=== PATIENT | female | born 1990 | race African-American/Black ===

== ENCOUNTER → 2019-07-17 11:46 | Outpatient (CLI) | payer BC, SELFPAY | PROVIDERS: Visit Provider Obstetrics & Gynecology | DX: N76.0 Acute vaginitis (principal) | CPT/HCPCS: 87070; 87077; 87186; 87205 ==

== ENCOUNTER → 2020-08-02 14:14 | Outpatient (CLI) | payer BC, SELFPAY ==
[2020-08-02 16:14] LABS: Thyroid Stimulating Hormone 2.26 uIU/mL (0.465-4.68)
== END ==
PROVIDERS: Visit Provider Obstetrics & Gynecology
DX: N97.0 Female infertility associated with anovulation (principal)
CPT/HCPCS: 36415; 84144; 84443

== ENCOUNTER → 2020-08-31 14:59 | Outpatient (POV) | payer BC, SELFPAY | PROVIDERS: Visit Provider Family Medicine | DX: Z00.00 Encounter for general adult medical examination without abnormal findings (principal) ==

== ENCOUNTER → 2020-09-02 15:34 | Outpatient (CLI) | payer BC, SELFPAY ==
[2020-09-02 17:57] LABS: Microscopic, Urine URINE MICROSCOPIC (MICROSCOPIC)
[2020-09-02 18:04] LABS: Basophils # 0.1 K/mm3 (0-0.2); Basophils % 0.4 % (0.1-2.0); Eosinophils # 0.1 K/mm3 (0.0-0.4); Hematocrit 43.9 % (37.0-47.0); Hemoglobin 14.8 g/dL (12.2-16.2); Mean Corpuscular HGB Conc 33.7 g/dL (31.8-35.4); Mean Corpuscular Hemoglobin 28.6 pg (27.0-31.2); Mean Corpuscular Volume 84.9 fl (81-99); Mean Platelet Volume 9.1 fl (7.4-10.4); Monocytes # 0.3 K/mm3 (0.1-1.0); Monocytes % 2.8 % (1.7-9.3); Neutrophils # 7.4 K/mm3 (1.8-7.8); Neutrophils % 67.7 % (37.0-80.0); Platelet Count 303 K/mm3 (142-424); Red Blood Count 5.18 M/mm3 (4.20-5.40); Red Cell Distribution Width 13.8 % (11.5-17.5); White Blood Count 10.9 K/mm3 (4.8-10.8)
[2020-09-02 18:45] LABS: Appearance,Urine CLEAR (Clear); Bilirubin,Urine Negative (Negative); Blood, Urine Negative (Negative); Color,Urine YELLOW (Yellow); Glucose,Urine (UA) 2+ (Negative); Ketones,Urine Negative (Negative); Leukocyte Esterase,Urine Negative (Negative); Nitrate,Urine Negative (Negative); PH,Urine 6.5 (5.0-8.5); Protein,Urine Negative (Negative); Urobilinogen,Urine 0.2 EU/dl (0.2)
--- NOTE | 2020-09-02 20:37 | ECG_ITS ---
APPROVED REPORT Exam: Resting ECG HR:116 bpm ECG Measurements Heart Rate 116 AXES AR 142 P 43 QRSd 66 QRS 1 QT 280 T 49 QTc 389 Conclusion Sinus tachycardia Possible Left atrial enlargement Left ventricular hypertrophy Nonspecific T wave abnormality Abnormal ECG Electronically signed by : Ephrami Kelly, 09/03/2020 10:32:19
[2020-09-04 08:57] LABS: Covid-19 Nasal PCR Sendout UK Not Detected
== END ==
PROVIDERS: PCP Nurse Practitioner; Visit Provider Nurse Practitioner
DX: Z03.818 Encounter for observation for suspected exposure to other biological agents ruled out (principal)
CPT/HCPCS: 36415; 81001; 85025; 93005; U0003

== ENCOUNTER 2020-09-02 20:11 | Emergency (ER) | payer BC, SELFPAY ==
[2020-09-02 20:14] VITALS: BP 131/94; PULSE 107; RESP 18; TEMP 36.8; O2SAT 98; BMI 42.2
--- NOTE | 2020-09-02 20:36 | XR_ITS ---
PROCEDURE: XR CHEST PORTABLE CLINICAL HISTORY: shortgness of breath COMPARISON: CR CXR CHEST(2 VIEWS-NOT PORTABLE) from 09/28/2015 FINDINGS: The cardiomediastinal silhouette and pulmonary vascularity are within normal limits. The lungs are clear without infiltrates, suspicious nodules, or pleural effusions. No acute bony abnormalities. IMPRESSION: No acute findings. Dictated by: Dr. Bernardo Serna MD 09/03/2020 08:12 Dr. Bernardo Serna MD in [place] 09/03/2020 08:12
--- NOTE | 2020-09-02 20:37 | HMH.EDGENADL ---
ED Disposition Clinical Impression: Shortness of breath Disposition: Home, Self-Care Condition on Discharge: Good Additional Instructions: Follow up with your therapist. Take the vistaril as needed for anxiety. Return with worsening shortness of breath Prescriptions: hydrOXYzine pamoate [Vistaril 25mg capsule] 25 mg PO Q6H PRN 3 Days #10 cap PRN Reason: Anxiety Prescription Printed Referrals: Arsalan Powers MD [Primary Care Provider] - - Critical Care Critical Care Time: No Attestation: On 09/02/20, the high probability of a clinically significant, sudden or life threatening deterioration of the following system(s) required my full and direct attention, intervention and personal management. The time I documented below is in addition to time spent performing reported procedures but includes the following listed in this critical care notation. Medical Decision Making - Medical Records Medical records reviewed: Yes: I reviewed the patient's medical records. - Edwin Inquiry Pt receiving controlled substance: No Vital Signs: 09/02/20 20:14 09/02/20 21:44 09/02/20 22:00 Temperature 98.3 F 98.3 F Temperature Source Oral Oral Pulse Rate 101 H Pulse Rate [Left Radial] 107 H 106 H Respiratory Rate 18 14 20 Blood Pressure 137/91 H Blood Pressure [Right Arm] 131/94 H 137/91 H Blood Pressure Mean [Right Arm] 106 106 Blood Pressure Source Automatic Cuff Blood Pressure Source [Right Arm] Automatic Cuff Blood Pressure Position Sitting Blood Pressure Position [Right Arm] Supine Supine 02 Sat by Pulse Oximetry 98 96 Oxygen Delivery Method Room Air Room Air Room Air - Lab Data Lab Results 09/02/20 20:50: Urine HCG, Qual Negative Orders (Tests/Meds): ORDERS Category Date Time Status CXR --portable [XR chest portable] Stat Exams 09/02/20 20:36 Taken Medical Decision Narrative: The patient is a 30 year old female who presents to the ED with shortness of breath. She is awake, alert, stable. She has no chest pain, no pleuritic pain. EKG is nonischemic. No signs of heart failure or fluid overload. Lungs are clear. CXR obtained and unremarkable per my read however limited by body habitus. She is tearful on exam about her recent diagnosis of possible infertility. Discussed the possibility of diagnosis of COVID-19 with patient and strict return precautions. She conveys understanding and feels comfortable going home. Given PRN vistaril for anxiety. General Adult HPI - General Chief complaint: Shortness of Breath/Dyspnea Stated complaint: sob,NAUSA,HEAD CONGESTION Time Seen by Provider: 09/02/20 20:35 Mode of Arrival: Ambulatory Limitations: No Limitations Description of Symptoms (Recalled from ER Triage Doc. by RN): Pt reports intermittent SOA since yesterday as well as nause. Pt was COVID tested today and she thinks she may just be having a panic attack . Pt denies CP, vomiting, diarrhea, abd pain, sore throat, cough, diaphoresis, weakness or dizziness. - History of Present Illness HPI narrative: The patient is a 30 year old female who presents with shortness of breath. Patient states that she had been feeling short of breath for a few days and told her PCP who saw her in clinic this morning and ordered a COVID test. She has not gotten the results. She was told to come in if she had continued shortness of breath and she felt short of breath which prompted her coming. She is able to ambulate without issue. No chest pain. No fevers, nausea, vomiting, diarrhea, abdominal pain. No known contact with anyone with COVID19. She has a history of anxiety and states this may be contributing - of note she just received the news she may not be able to have children. - Related Data Home Medications Medication Instructions Recorded Confirmed cholecalciferol (vitamin D3) 50 2,000 unit PO DAILY 07/17/19 09/02/20 mcg (2,000 unit) capsule metformin 500 mg tablet 500 mg PO DAILY tab 06/24
--- NOTE | 2020-09-02 20:41 | PC.NURSE ---
Pt in COVID isolation d/t pending COVID test
[2020-09-02 21:11] LABS: Urine Pregnancy, HCG Qual. Negative (Negative)
[2020-09-02 21:44] VITALS: BP 137/91; PULSE 106; RESP 14; O2SAT 96
[2020-09-02 22:00] VITALS: BP 137/91; PULSE 101; RESP 20; TEMP 36.8; O2SAT 94
== END 2020-09-02 22:06 | disposition home or self-care (01) ==
PROVIDERS: Emergency Provider Emergency Medicine; PCP Family Medicine
DX: Z20.828 Contact with and (suspected) exposure to other viral communicable diseases (principal); E11.9 Type 2 diabetes mellitus without complications; F41.9 Anxiety disorder, unspecified; Z79.899 Other long term (current) drug therapy
CPT/HCPCS: 71045; 81025; 99283

== ENCOUNTER → 2020-09-14 14:25 | Outpatient (POV) | payer BC, SELFPAY | DX: Z00.00 Encounter for general adult medical examination without abnormal findings (principal) ==

== ENCOUNTER → 2021-05-12 18:32 | Outpatient (CLI) | payer BC, SELFPAY ==
[2021-05-12 19:47] LABS: Basophils # 0.1 K/mm3 (0-0.2); Basophils % 0.8 % (0.1-2.0); Eosinophils # 0.2 K/mm3 (0.0-0.4); Eosinophils % 1.6 % (0.1-12.0); Hematocrit 42.9 % (37.0-47.0); Hemoglobin 14.2 g/dL (12.2-16.2); Lymphocytes # 2.7 K/mm3 (0.7-4.5); Lymphocytes % 26.8 % (10-50); Mean Corpuscular HGB Conc 33.2 g/dL (31.8-35.4); Mean Corpuscular Hemoglobin 27.6 pg (27.0-31.2); Mean Platelet Volume 8.4 fl (7.4-10.4); Monocytes # 0.4 K/mm3 (0.1-1.0); Monocytes % 3.5 % (1.7-9.3); Neutrophils # 6.8 K/mm3 (1.8-7.8); Neutrophils % 67.2 % (37.0-80.0); Platelet Count 283 K/mm3 (142-424); Red Blood Count 5.16 M/mm3 (4.20-5.40); Red Cell Distribution Width 13.6 % (11.5-17.5); White Blood Count 10.1 K/mm3 (4.8-10.8)
[2021-05-12 20:14] LABS: Strep Scrn Group A (Rapid) Negative (Negative)
== END ==
PROVIDERS: PCP Physician Assistant; Visit Provider Physician Assistant
DX: Z20.822 Contact with and (suspected) exposure to COVID-19 (principal)
CPT/HCPCS: 36415; 85025; 87430; U0003

== ENCOUNTER → 2021-08-28 14:32 | Outpatient (CLI) | payer BC, SELFPAY | PROVIDERS: PCP Family Medicine; Visit Provider Nurse Practitioner | DX: G47.33 Obstructive sleep apnea (adult) (pediatric) (principal); R40.0 Somnolence; R06.83 Snoring | CPT/HCPCS: G0399 ==

== ENCOUNTER → 2021-09-01 10:58 | Outpatient (CLI) | payer BC, SELFPAY ==
--- NOTE | 2021-09-01 10:58 | US_ITS ---
PROCEDURE: US TRANSVAGINAL CLINICAL INDICATION: heavy menstrual bleeding COMPARISON: No exams were available for comparison FINDINGS: UTERUS: 8cm x 5cmx 4cm with a combined endometrial thickness of 5.6mm. There are multiple fibroids present. 1.8 x 1.6 cm fibroid in the anterior aspect of the body of the uterus. 1.5 cm fibroid along the fundus of the uterus. 3.5 cm area of heterogeneous echogenicity in the left aspect of the body of the uterus suggesting a fibroid possibly pedunculated. MRI may confirm.. LEFT OVARY: [id number] with a volume of 10.2ml. RIGHT OVARY: [id number] with a volume of 12ml. 1.4 cm left ovarian cyst with other small follicles noted. No cul-de-sac fluid. IMPRESSION: At least 3 uterine fibroids possibly pedunculated on the left. MRI may confirm. Dictated by: Caleb Powers MD 09/01/2021 16:45 Caleb Powers MD in [place] 09/01/2021 16:45
== END ==
PROVIDERS: PCP Family Medicine; Visit Provider Obstetrics & Gynecology
DX: N92.0 Excessive and frequent menstruation with regular cycle (principal)
CPT/HCPCS: 76830

== ENCOUNTER → 2021-10-02 12:03 | Outpatient (CLI) | payer BC, SELFPAY | PROVIDERS: PCP Family Medicine; Visit Provider Nurse Practitioner | DX: Z20.822 Contact with and (suspected) exposure to COVID-19 (principal) | CPT/HCPCS: C9803; U0003; U0005 ==

== ENCOUNTER → 2022-02-28 10:55 | Outpatient (CLI) | payer BC, SELFPAY ==
--- NOTE | 2022-02-28 11:15 | US_ITS ---
FINAL REPORT CLINICAL HISTORY: NEOPLASM OF UNCERTAIN BEHAVIOR OF ORBIT; palpable area rt of midline: upper nose/medial to rt orbit FINDINGS: SOFT TISSUE HEAD ULTRASOUND Sonographic images of the soft tissues of the head were obtained. There is a 6 x 6 x 3 mm hypoechoic nodule in the area of interest medial to the right orbit. This may represent complex cyst versus neoplasm. IMPRESSION: Hypoechoic nodule medial to the right orbit, complex cyst versus neoplasm. Reviewed, Interpreted and Dictated by Jesse Paulson III, MD Transcribed by Yesica Parks Authenticated and [facility]
== END ==
PROVIDERS: PCP Family Medicine; Visit Provider Nurse Practitioner
DX: D48.7 Neoplasm of uncertain behavior of other specified sites (principal)
CPT/HCPCS: 76536

== ENCOUNTER → 2022-03-14 12:40 | Outpatient (CLI) | payer BC, SELFPAY ==
--- NOTE | 2022-03-14 12:47 | CT_ITS ---
FINAL REPORT TECHNIQUE: Multiple axial CT sections were performed from the foramen magnum to the vertex. Coronal reformatted images were also obtained. Precontrast and postcontrast injection images were obtained. This study was performed with technique to keep radiation doses as low as reasonably achievable, (ALARA). Individualized dose reduction techniques using automated exposure control or adjustment of mA and/or kV according to the patient size were employed. CLINICAL HISTORY: NEOPLASM OF UNCERTAIN BEHAVIOR OF RIGHT ORBIT FINDINGS: The ventricles are normal in size. There is no evidence of hemorrhage. No masses are identified. No extra-axial fluid collection is seen. The sinuses are normal. No osseous abnormality is seen on the bone window images. Postcontrast images demonstrate no abnormal enhancement. IMPRESSION: Unremarkable CT of the head with and without contrast. Reviewed, Interpreted and Dictated by Jesse Paulson III, MD Transcribed by Sachi Anand Authenticated and [facility]
== END ==
PROVIDERS: PCP Family Medicine; Visit Provider Nurse Practitioner
DX: D48.7 Neoplasm of uncertain behavior of other specified sites (principal)
CPT/HCPCS: 70470; Q9967

== ENCOUNTER → 2022-05-30 06:59 | Outpatient (CLI) | payer BC, SELFPAY ==
[2022-05-30 21:00] LABS: Alanine Aminotransferase 19 U/L (12-78); Albumin Level 3.6 g/dl (3.5-5.0); Albumin/Globulin Ratio 1.5 (1.1-1.8); Alkaline Phosphatase 107 U/L (38-126); Aspartate Amino Transferase 20 U/L (14-36); Blood Urea Nitrogen 10 mg/dl (7-17); Calcium 8.9 mg/dl (8.4-10.2); Carbon Dioxide 25 mmol/L (22.0-30.0); Chloride 106 mmol/L (98-107); Estimated Glomerular Filt Rate 116 ml/min (>60); GFR (African American) 140 ML/MIN (>60); Globulin 2.4 g/dL (1.3-3.2); Glucose 150 mg/dl (74-100); Sodium 137 mmol/L (136-145)
[2022-05-30 21:04] LABS: Bilirubin,Total < 0.1 mg/dl (0.2-1.3)
== END ==
PROVIDERS: PCP Nurse Practitioner; Visit Provider Nurse Practitioner
DX: E11.9 Type 2 diabetes mellitus without complications (principal); Z79.84 Long term (current) use of oral hypoglycemic drugs
CPT/HCPCS: 80053

== ENCOUNTER → 2022-12-05 23:07 | Outpatient (CLI) | payer BC, SELFPAY | PROVIDERS: PCP Nurse Practitioner Family; Visit Provider Nurse Practitioner Family | DX: J02.9 Acute pharyngitis, unspecified (principal) | CPT/HCPCS: 87070 ==

== ENCOUNTER → 2022-12-10 23:36 | Outpatient (CLI) | payer BC, SELFPAY ==
[2022-12-10 18:24] LABS: Basophils % 0.3 % (0.1-2.0); Eosinophils # 0.1 K/mm3 (0.0-0.4); Eosinophils % 0.7 % (0.1-12.0); Hematocrit 42.4 % (37.0-47.0); Hemoglobin 13.6 g/dL (12.2-16.2); Lymphocytes # 2.2 K/mm3 (0.7-4.5); Lymphocytes % 30.1 % (10-50); Mean Corpuscular Hemoglobin 27.1 pg (27.0-31.2); Mean Corpuscular Volume 84.6 fl (81-99); Mean Platelet Volume 9.1 fl (7.4-10.4); Monocytes # 0.2 K/mm3 (0.1-1.0); Neutrophils # 4.8 K/mm3 (1.8-7.8); Neutrophils % 65.9 % (37.0-80.0); Platelet Count 317 K/mm3 (142-424); Red Blood Count 5.01 M/mm3 (4.20-5.40); Red Cell Distribution Width 13.9 % (11.5-17.5); White Blood Count 7.2 K/mm3 (4.8-10.8)
[2022-12-10 18:38] LABS: Alanine Aminotransferase 21 U/L (12-78); Albumin Level 4.2 g/dl (3.5-5.0); Albumin/Globulin Ratio 1.8 (1.1-1.8); Alkaline Phosphatase 94 U/L (38-126); Aspartate Amino Transferase 21 U/L (14-36); Bilirubin,Total 0.3 mg/dl (0.2-1.3); Blood Urea Nitrogen 10 mg/dl (7-17); Calcium 9.2 mg/dl (8.4-10.2); Carbon Dioxide 25 mmol/L (22.0-30.0); Chloride 104 mmol/L (98-107); Chol/HDL Ratio 4.5 (1-3.5); Cholesterol 127 mg/dl (140-200); Estimated Glomerular Filt Rate 142 ml/min (>60); GFR (African American) 172 ML/MIN (>60); Globulin 2.4 g/dL (1.3-3.2); Glucose 126 mg/dl (74-100); HDL Cholesterol 28 mg/dl (40-60); Hemoglobin A1C 6.8 % (4.0-6.0); Sodium 138 mmol/L (136-145); Total Protein,Serum 6.6 g/dl (6.3-8.2); Triglycerides 211 mg/dl (30-150); VLDL Cholesterol 42 mg/dL (0-40)
[2022-12-10 18:42] LABS: Creatinine,Urine Random 37 mg/dL (Not Estab.)
[2022-12-10 18:46] LABS: Microalbumin/Creatinine Ratio 48.1
[2022-12-10 18:49] LABS: Direct LDL Cholesterol 76.55 mg/dL (100-129)
[2022-12-10 18:56] LABS: 25-OH Vitamin D, Total 55.3 ng/mL (30-100)
[2022-12-10 19:09] LABS: Thyroid Stimulating Hormone 0.89 uIU/mL (0.465-4.68)
[2022-12-10 19:28] LABS: Vitamin B12 891 pg/mL (239-931)
== END ==
PROVIDERS: PCP Nurse Practitioner; Visit Provider Nurse Practitioner
DX: E11.9 Type 2 diabetes mellitus without complications (principal); E53.8 Deficiency of other specified B group vitamins; E55.9 Vitamin D deficiency, unspecified; E66.9 Obesity, unspecified; Z68.41 Body mass index [BMI] 40.0-44.9, adult
CPT/HCPCS: 80053; 80061; 82043; 82306; 82570; 82607; 83036; 84443; 85025

== ENCOUNTER → 2023-03-13 08:51 | Outpatient (CLI) | payer BC, SELFPAY ==
[2023-03-13 19:29] LABS: Alanine Aminotransferase 29 U/L (12-78); Albumin Level 4.4 g/dl (3.5-5.0); Albumin/Globulin Ratio 1.7 (1.1-1.8); Alkaline Phosphatase 89 U/L (38-126); Anion Gap 17.2 mEq/L (5-15); Aspartate Amino Transferase 27 U/L (14-36); Bilirubin,Total 0.3 mg/dl (0.2-1.3); Blood Urea Nitrogen 10 mg/dl (7-17); Calcium 9.3 mg/dl (8.4-10.2); Carbon Dioxide 24 mmol/L (22.0-30.0); Chloride 101 mmol/L (98-107); Chol/HDL Ratio 4.4 (1-3.5); Cholesterol 131 mg/dl (140-200); Estimated Glomerular Filt Rate 142 ml/min (>60); GFR (African American) 172 ML/MIN (>60); Globulin 2.6 g/dL (1.3-3.2); Glucose 123 mg/dl (74-100); HDL Cholesterol 30 mg/dl (40-60); Potassium 4.2 mmoL/L (3.5-5.1); Sodium 138 mmol/L (136-145); Triglycerides 195 mg/dl (30-150); VLDL Cholesterol 39 mg/dL (0-40)
[2023-03-13 19:40] LABS: Direct LDL Cholesterol 65.96 mg/dL (100-129)
== END ==
PROVIDERS: PCP Nurse Practitioner; Visit Provider Nurse Practitioner
DX: E11.9 Type 2 diabetes mellitus without complications (principal); E78.5 Hyperlipidemia, unspecified; Z79.84 Long term (current) use of oral hypoglycemic drugs
CPT/HCPCS: 80053; 80061

== ENCOUNTER → 2023-06-12 01:10 | Outpatient (CLI) | payer BC, SELFPAY ==
[2023-06-12 19:24] LABS: Alanine Aminotransferase 24 U/L (12-78); Albumin/Globulin Ratio 1.5 (1.1-1.8); Alkaline Phosphatase 107 U/L (38-126); Anion Gap 13.1 mEq/L (5-15); Aspartate Amino Transferase 21 U/L (14-36); Bilirubin,Total 0.3 mg/dl (0.2-1.3); Blood Urea Nitrogen 10 mg/dl (7-17); Calcium 9.3 mg/dl (8.4-10.2); Carbon Dioxide 28 mmol/L (22.0-30.0); Chloride 104 mmol/L (98-107); Estimated Glomerular Filt Rate 96 ml/min (>60); GFR (African American) 116 ML/MIN (>60); Globulin 2.6 g/dL (1.3-3.2); Glucose 84 mg/dl (74-100); Potassium 4.1 mmoL/L (3.5-5.1); Sodium 141 mmol/L (136-145); Total Protein,Serum 6.6 g/dl (6.3-8.2)
[2023-06-12 19:37] LABS: Microalbumin/Creatinine Ratio 4.2
[2023-06-12 19:52] LABS: Creatinine,Urine Random 269 mg/dL (Not Estab.)
== END ==
PROVIDERS: PCP Nurse Practitioner; Visit Provider Nurse Practitioner
DX: E11.9 Type 2 diabetes mellitus without complications (principal)
CPT/HCPCS: 80053; 82043; 82570

== ENCOUNTER → 2023-09-09 06:41 | Outpatient (CLI) | payer BC, SELFPAY ==
[2023-09-09 18:45] LABS: Alanine Aminotransferase 15 U/L (12-78); Albumin Level 3.8 g/dl (3.5-5.0); Albumin/Globulin Ratio 1.5 (1.1-1.8); Alkaline Phosphatase 75 U/L (38-126); Aspartate Amino Transferase 21 U/L (14-36); Bilirubin,Total 0.2 mg/dl (0.2-1.3); Blood Urea Nitrogen 8 mg/dl (7-17); Calcium 8.5 mg/dl (8.4-10.2); Carbon Dioxide 27 mmol/L (22.0-30.0); Chloride 106 mmol/L (98-107); Cholesterol 123 mg/dl (140-200); Estimated Glomerular Filt Rate 96 ml/min (>60); GFR (African American) 116 ML/MIN (>60); Globulin 2.5 g/dL (1.3-3.2); Glucose 98 mg/dl (74-100); HDL Cholesterol 41 mg/dl (40-60); Sodium 135 mmol/L (136-145); Total Protein,Serum 6.3 g/dl (6.3-8.2); Triglycerides 124 mg/dl (30-150); VLDL Cholesterol 25 mg/dL (0-40)
[2023-09-09 18:56] LABS: Direct LDL Cholesterol 67.45 mg/dL (100-129)
[2023-09-09 19:04] LABS: 25-OH Vitamin D, Total 72.5 ng/mL (30-100)
[2023-09-09 19:35] LABS: Vitamin B12 812 pg/mL (239-931)
[2023-09-09 19:59] LABS: Hemoglobin A1C 5.5 % (4.0-6.0)
== END ==
PROVIDERS: PCP Nurse Practitioner; Visit Provider Nurse Practitioner
DX: E11.9 Type 2 diabetes mellitus without complications (principal); E53.8 Deficiency of other specified B group vitamins; E55.9 Vitamin D deficiency, unspecified; E66.9 Obesity, unspecified; E78.5 Hyperlipidemia, unspecified
CPT/HCPCS: 80053; 80061; 82306; 82607; 83036

== ENCOUNTER 2023-11-04 21:40 | Outpatient (CLI) | payer OTHER, SELFPAY ==
[2023-11-04 18:59] LABS: Basophils % 0.2 % (0.1-2.0); Eosinophils % 0.1 % (0.1-12.0); Hematocrit 42.2 % (37.0-47.0); Hemoglobin 14.4 g/dL (12.2-16.2); Lymphocytes # 2.1 K/mm3 (0.7-4.5); Lymphocytes % 25.8 % (10-50); Mean Corpuscular HGB Conc 34.1 g/dL (31.8-35.4); Mean Corpuscular Hemoglobin 29.4 pg (27.0-31.2); Mean Corpuscular Volume 86.3 fl (81-99); Mean Platelet Volume 9.5 fl (7.4-10.4); Monocytes # 0.3 K/mm3 (0.1-1.0); Monocytes % 3.3 % (1.7-9.3); Neutrophils # 5.7 K/mm3 (1.8-7.8); Neutrophils % 70.7 % (37.0-80.0); Platelet Count 260 K/mm3 (142-424); Red Blood Count 4.89 M/mm3 (4.20-5.40); Red Cell Distribution Width 13.4 % (11.5-17.5); White Blood Count 8.1 K/mm3 (4.8-10.8)
[2023-11-04 19:09] LABS: Alanine Aminotransferase 18 U/L (12-78); Albumin/Globulin Ratio 1.6 (1.1-1.8); Alkaline Phosphatase 88 U/L (38-126); Aspartate Amino Transferase 20 U/L (14-36); Bilirubin,Total 0.2 mg/dl (0.2-1.3); Blood Urea Nitrogen 13 mg/dl (7-17); Calcium 9.5 mg/dl (8.4-10.2); Carbon Dioxide 25 mmol/L (22.0-30.0); Chloride 108 mmol/L (98-107); Estimated Glomerular Filt Rate 114 ml/min (>60); GFR (African American) 138 ML/MIN (>60); Globulin 2.5 g/dL (1.3-3.2); Glucose 113 mg/dl (74-100); Sodium 138 mmol/L (136-145); Total Protein,Serum 6.5 g/dl (6.3-8.2)
[2023-11-04 19:23] LABS: 25-OH Vitamin D, Total 55.7 ng/mL (30-100)
[2023-11-04 19:40] LABS: Thyroid Stimulating Hormone 0.85 uIU/mL (0.465-4.68)
[2023-11-04 19:59] LABS: Vitamin B12 836 pg/mL (239-931)
[2023-11-04 20:25] LABS: Creatinine,Urine Random 195 mg/dL (Not Estab.); Microalbumin/Creatinine Ratio 5.2
[2023-11-04 20:46] LABS: Hemoglobin A1C 5.5 % (4.0-6.0)
== END 2023-11-04 23:59 ==
LOC: LAB.DROPOF 21:40
PROVIDERS: PCP Nurse Practitioner; Visit Provider Nurse Practitioner
DX: E11.9 Type 2 diabetes mellitus without complications (principal); E53.8 Deficiency of other specified B group vitamins; E55.9 Vitamin D deficiency, unspecified; E66.9 Obesity, unspecified; Z98.84 Bariatric surgery status; Z68.35 Body mass index [BMI] 35.0-35.9, adult
CPT/HCPCS: 80053; 82043; 82306; 82570; 82607; 83036; 84443; 85025

== ENCOUNTER 2024-02-03 10:14 | Outpatient (CLI) | payer OTHER, SELFPAY ==
[2024-02-03 18:23] LABS: Alanine Aminotransferase 20 U/L (12-78); Albumin Level 3.8 g/dl (3.5-5.0); Albumin/Globulin Ratio 1.6 (1.1-1.8); Alkaline Phosphatase 94 U/L (38-126); Anion Gap 11.1 mEq/L (5-15); Aspartate Amino Transferase 21 U/L (14-36); Bilirubin,Total 0.3 mg/dl (0.2-1.3); Blood Urea Nitrogen 7 mg/dl (7-17); Calcium 9.3 mg/dl (8.4-10.2); Carbon Dioxide 30 mmol/L (22.0-30.0); Chloride 105 mmol/L (98-107); Estimated Glomerular Filt Rate 114 ml/min (>60); GFR (African American) 138 ML/MIN (>60); Globulin 2.4 g/dL (1.3-3.2); Glucose 92 mg/dl (74-100); Potassium 4.1 mmoL/L (3.5-5.1); Sodium 142 mmol/L (136-145); Total Protein,Serum 6.2 g/dl (6.3-8.2)
[2024-02-03 18:33] LABS: Hemoglobin A1C 5.7 % (4.0-6.0)
[2024-02-03 18:36] LABS: 25-OH Vitamin D, Total 54.9 ng/mL (30-100)
[2024-02-03 19:08] LABS: Vitamin B12 873 pg/mL (239-931)
== END 2024-02-03 23:59 | disposition home or self-care (01) ==
LOC: LAB.DROPOF 02-05 10:15
PROVIDERS: PCP Nurse Practitioner; Visit Provider Nurse Practitioner
DX: E11.9 Type 2 diabetes mellitus without complications (principal); E55.9 Vitamin D deficiency, unspecified; E53.8 Deficiency of other specified B group vitamins; E66.9 Obesity, unspecified; Z98.84 Bariatric surgery status; Z79.899 Other long term (current) drug therapy
CPT/HCPCS: 80053; 82306; 82607; 83036

== ENCOUNTER 2024-05-04 08:32 | Outpatient (CLI) | payer OTHER, SELFPAY ==
[2024-05-04 21:49] LABS: Alanine Aminotransferase 19 U/L (12-78); Albumin Level 3.7 g/dl (3.5-5.0); Albumin/Globulin Ratio 1.4 (1.1-1.8); Alkaline Phosphatase 80 U/L (38-126); Anion Gap 8.2 mEq/L (5-15); Aspartate Amino Transferase 21 U/L (14-36); Bilirubin,Total 0.4 mg/dl (0.2-1.3); Blood Urea Nitrogen 9 mg/dl (7-17); Calcium 9.4 mg/dl (8.4-10.2); Carbon Dioxide 28 mmol/L (22.0-30.0); Chloride 106 mmol/L (98-107); Chol/HDL Ratio 3.6 (1-3.5); Cholesterol 166 mg/dl (140-200); Estimated Glomerular Filt Rate 114 ml/min (>60); GFR (African American) 138 ML/MIN (>60); Globulin 2.7 g/dL (1.3-3.2); Glucose 95 mg/dl (74-100); HDL Cholesterol 46 mg/dl (40-60); Potassium 4.2 mmoL/L (3.5-5.1); Sodium 138 mmol/L (136-145); Total Protein,Serum 6.4 g/dl (6.3-8.2); Triglycerides 76 mg/dl (30-150); VLDL Cholesterol 15 mg/dL (0-40)
[2024-05-04 21:59] LABS: Direct LDL Cholesterol 82.77 mg/dL (100-129)
[2024-05-04 22:21] LABS: Hemoglobin A1C 5.1 % (4.0-6.0)
== END 2024-05-04 23:59 | disposition home or self-care (01) ==
LOC: LAB.DROPOF 05-05 15:00
PROVIDERS: PCP Nurse Practitioner; Visit Provider Nurse Practitioner
DX: E11.9 Type 2 diabetes mellitus without complications (principal); E66.9 Obesity, unspecified; E78.5 Hyperlipidemia, unspecified; Z98.84 Bariatric surgery status; Z68.34 Body mass index [BMI] 34.0-34.9, adult
CPT/HCPCS: 80053; 80061; 83036

== ENCOUNTER 2024-05-20 13:58 | Outpatient (CLI) | payer OTHER, SELFPAY ==
[2024-05-20 15:26] LABS: HCG,Quantitative 2891 mIU/ml (0-5.42)
[2024-05-22 12:13] LABS: Progesterone 12.3 ng/mL (.)
== END 2024-05-20 23:59 | disposition home or self-care (01) ==
LOC: LAB 13:59
PROVIDERS: PCP Nurse Practitioner; Visit Provider Obstetrics & Gynecology
DX: Z34.90 Encounter for supervision of normal pregnancy, unspecified, unspecified trimester (principal)
CPT/HCPCS: 36415; 84144; 84702

== ENCOUNTER 2024-05-26 08:29 | Emergency (ER) | payer OTHER, SELFPAY ==
[2024-05-26] VITALS (8 sets, daily range): BP systolic 118–136; BP diastolic 71–82; PULSE 74–88; RESP 13–16; TEMP 36.6; O2SAT 99–100; BMI 33.5
--- NOTE | 2024-05-26 08:39 | PC.NURSE ---
Spouse at [facility]
[2024-05-26 08:43] LABS: Microscopic, Urine URINE MICROSCOPIC (MICROSCOPIC)
--- NOTE | 2024-05-26 08:53 | US_ITS ---
PROCEDURE: US OB TRANSVAGINAL CLINICAL INDICATION: pain/bleeding positive preg test at home COMPARISON: No exams were available for comparison FINDINGS: Transvaginal sonographic images of the pelvis were obtained. From her last menstrual period she is 5weeks 5days. An intrauterine gestational sac is present with a pole with a crown-rump length of 0.21cm This correlates to a gestational age of 5weeks 6days. heart tones are present with an FHR of a flicker. Yolk sac is noted. The yolk sac measures 4.7mm. There appears to be a small subchorionic hemorrhage. There is a fibroid anteriorly measuring 2.6 cm x 2.7 cm x 2.5 cm. There is a 2nd fibroid posteriorly near the lower uterine segment that measures 1.8 cm x 1.8 cm x 2.0 cm The right ovary is seen and appears normal. There is a corpus luteum measuring 2.0 cm in the right ovary. The left ovary is seen and appears normal. There is a prominent follicle in the left ovary measuring 3.1 cm. There is a 2nd follicle measuring 1.4 cm x 1.4 cm There is trace fluid in the cul-de-sac. IMPRESSION: 1. Early viable fetus within the uterine cavity. There is heart rate activity seen. There appears to be a small subchorionic hemorrhage. 2. Within the uterus there are 2 fibroids measuring 2.7 cm and 2.0 cm. 3. The right ovary is seen and appears normal with a small, old corpus luteum measuring 2 cm. 4. The left ovary has 2 follicles the largest measures 3.1 cm. 5. There is trace fluid in the cul-de-sac. Dictated by: Luis Alfredo Freedman MD 05/26/2024 10:28 Luis Alfredo Freedman MD in [place] 05/26/2024 10:28
[2024-05-26 08:58] LABS: Appearance,Urine SL CLOUDY (Clear); Bilirubin,Urine Negative (Negative); Blood, Urine 2+ (Negative); Color,Urine YELLOW (Yellow); Glucose,Urine (UA) Negative (Negative); Ketones,Urine Negative (Negative); Leukocyte Esterase,Urine 1+ (Negative); Nitrate,Urine Negative (Negative); Protein,Urine Negative (Negative); Specific Gravity, Urine <= 1.005 (1.005-1.030); Urobilinogen,Urine 0.2 EU/dl (0.2)
[2024-05-26 09:01] LABS: Basophils % 0.5 % (0.1-2.0); Eosinophils # 0.1 K/mm3 (0.0-0.4); Eosinophils % 0.8 % (0.1-12.0); Hematocrit 43.1 % (37.0-47.0); Lymphocytes % 31.7 % (10-50); Mean Corpuscular HGB Conc 32.5 g/dL (31.8-35.4); Mean Corpuscular Hemoglobin 29.5 pg (27.0-31.2); Mean Corpuscular Volume 90.9 fl (81-99); Mean Platelet Volume 8.9 fl (7.4-10.4); Monocytes # 0.2 K/mm3 (0.1-1.0); Monocytes % 2.6 % (1.7-9.3); Neutrophils # 4.1 K/mm3 (1.8-7.8); Neutrophils % 64.4 % (37.0-80.0); Platelet Count 247 K/mm3 (142-424); Red Blood Count 4.74 M/mm3 (4.20-5.40); Red Cell Distribution Width 13.4 % (11.5-17.5); White Blood Count 6.4 K/mm3 (4.8-10.8)
[2024-05-26 09:05] LABS: Albumin Level 4.4 g/dl (3.5-5.0); Chloride 105 mmol/L (98-107); Potassium 3.7 mmoL/L (3.5-5.1); Sodium 136 mmol/L (136-145)
[2024-05-26 09:08] LABS: Alanine Aminotransferase 20 U/L (12-78); Albumin/Globulin Ratio 1.5 (1.1-1.8); Alkaline Phosphatase 88 U/L (38-126); Aspartate Amino Transferase 25 U/L (14-36); Bilirubin,Total 0.5 mg/dl (0.2-1.3); Blood Urea Nitrogen 4 mg/dl (7-17); Calcium 9.1 mg/dl (8.4-10.2); Creatinine Clearance Estimated 173 mL/min (50-200); Estimated Glomerular Filt Rate 114 ml/min (>60); GFR (African American) 138 ML/MIN (>60); Globulin 2.9 g/dL (1.3-3.2); Glucose 101 mg/dl (74-100); Total Protein,Serum 7.3 g/dl (6.3-8.2)
--- NOTE | 2024-05-26 09:16 | PC.NURSE ---
pt to us
[2024-05-26 09:17] LABS: Bacteria,Urine 1+ /lpf; RBC,Urine Occasional #/hpf (0-3); WBC,Urine Occasional #/hpf (0-3)
--- NOTE | 2024-05-26 09:18 | PC.NURSE ---
pt to US via wheelchair
--- NOTE | 2024-05-26 09:38 | HMH.EDGENADL ---
Discharge Plan Disposition Patient Disposition: Home, Self-Care Condition: Good Prescriptions Prescriptions: New cefdinir 300 mg capsule 300 mg PO BID 7 Days Qty: 14 0RF No Action prenat.vits,raya,[id number] Tablet 1 tab PO DAILY rizatriptan 10 mg tablet,disintegrating 10 mg PO PRN omeprazole 20 mg capsule,delayed release(DR/EC) 20 mg PO DAILY PRN Patient Comments: TAKE 1 CAPSULE BY MOUTH ONCE DAILY aripiprazole [Abilify] 10 mg tablet 10 mg PO QHS Qty: 30 1RF venlafaxine 150 mg capsule,extended release 24hr See Rx Instructions .ROUTE .COMPLEX Qty: 90 1RF Dose Instruction: TAKE 1 CAPSULE BY MOUTH ONCE DAILY. TAKE ALONG WITH 75 MG CAPSULE FOR A TOTAL DAILY DOSE OF 225 MG Rx Instructions: TAKE 1 CAPSULE BY MOUTH ONCE DAILY. TAKE ALONG WITH 75 MG CAPSULE FOR A TOTAL DAILY DOSE OF 225 MG venlafaxine 75 mg capsule,extended release 24hr See Rx Instructions .ROUTE .COMPLEX Qty: 90 1RF Dose Instruction: TAKE 1 CAPSULE BY MOUTH ONCE DAILY FOR ANXIETY Rx Instructions: TAKE 1 CAPSULE BY MOUTH ONCE DAILY FOR ANXIETY norgestimate-ethinyl estradiol [Tri-Lo-Lorenza] 0.18/0.215/0.25 mg-25 mcg tablet See Rx Instructions .ROUTE .COMPLEX Qty: 84 1RF Dose Instruction: Take 1 tablet by mouth once daily Rx Instructions: Take 1 tablet by mouth once daily Referrals Follow up/Referrals: Laya Guaman APRN [Primary Care Provider] - See instructions Activity Restrictions/Add. Instructions Additional Instructions/Restrictions: You were evaluated in the emergency department today. Please fern picker your prescription for antibiotic and take daily as prescribed. Follow-up very closely with your primary care provider as well as with your first responder. I recommend seeing them over the next week. I encourage pelvic rest until your vaginal bleeding and cramping have resolved. Return to the emergency department for new or worsening symptoms, such as significant worsening in bleeding worsen irregular menstrual period, significant worsening of pain, or other concerns. Clinical Impressions Clinical Impression: Asymptomatic bacteriuria, Subchorionic hemorrhage in first trimester, Vaginal bleeding during Instructions Patient Instructions: DI for Vaginal Bleeding During Print Language Print Language: Chinese Discharge ED Provider: Naye Salter General Adult HPI General Chief complaint: Vaginal Bleeding Stated complaint: 5 weeks spotting cramping Time Seen by Provider: 05/26/24 08:38 Mode of Arrival: Ambulatory Source of Information: Patient Limitations: No Limitations Description of Symptoms (Recalled from ER Triage Doc. by RN): pt presents to ED with c/o vaginal bleeding. pt reports bleeding and abdominal cramping began last night. no cramping today only bleeding. pt reports bright red blood. possibly 5 weeks . obgyn - dr cuba. History of Present Illness HPI narrative: This patient is a 33-year-old female with a history of obesity status post weight loss surgery, generalized anxiety disorder, bipolar disorder, type 2 diabetes, and CATHY presenting to the emergency department for evaluation with concern for vaginal bleeding. Patient is a G1, P0 who reports that she is estimated 5 weeks gestational age based on last menstrual period with positive test at home presenting with concern for bright red spotting that started last night. She states that it is enough to where she needs to wear a pad, but she is not soaking through pads. It is not as heavy as a regular period. No passage of large clots. She had some lower abdominal cramping last night, but no significant pain today. No other concerns noted at this time. She has not yet had outpatient ultrasound. Related Data Home Medications ?Medication ?Instructions ?Recorded ?Confirmed prenat.vits,raya,tho-uwjs-pzeoi 1 tab PO DAILY 09/12/20 05/24/24 rizatriptan 10 mg disintegrating 10 mg PO PRN 08/29/22 05/24/24 tablet omeprazole 20 mg capsule,delayed 20 mg PO DAILY PRN 01/24/24 05/24/24 release Previous Rx's ?Medication ?Instructions ?Recorded norgestimate 0.18 mg/0.215 mg/0.25 See Rx Instructions .Route 10/28/23 mg-ethinyl estradiol 25 mcg tablet .COMPLEX #84 tabs (Tri-Lo-Lorenza) aripiprazole 10 mg tablet (Abilify) 10 mg PO QHS #30 tabs 05/08/24 venlafaxine 150 mg See Rx Instructions .Route 05/08/24 capsule,extended release 24 hr .COMPLEX #90 caps venlafaxine 75 mg capsule,extended See Rx Instructions .Route 05/08/24 release 24 hr .COMPLEX #90 caps cefdinir 300 mg capsule 300 mg PO BID 7 days #14 caps 05/26/24 Allergies Allergy/AdvReac Type Severity Reaction Status Date / Time benzoyl peroxide Allergy Mild rash Verified 05/04/24 08:07 salicylic acid Allergy Mild Rash Verified 05/04/24 08:07 [facility] Disclaimer: The information contained in this section may have been updated after the patient was seen, as this information can be updated by other users. Medical History Thyroid nodule Hyperlipidemia Uterine leiomyoma CATHY (obstructive sleep apnea) Type 2 diabetes mellitus Generalized anxiety disorder Surgical History Hx of bariatric surgery (~04/2023) Family History Grandfather Diabetes Grandmother Diabetes Anemia Thyroid disorder Hypertension Heart attack Family/Other Cancer Social History Smoking Status: Former smoker tobacco type: cigarettes packs per day: 0 alcohol intake: current alcohol intake frequency: a few times a month counseling given: No substance use type: denies use current occupational status: employed Travel in the last 8 weeks: None household members: spouse housing: house marital status: number of children: 0 service: No detention: No leisure activities: exercise Hx Recent Travel: No sexually active: Yes (with her ) ROS Obtained: Yes All systems reviewed & no additional complaints except as documented Physical Exam General General appearance: alert and in no apparent distress Head Head exam: atraumatic and normocephalic Eye Eye exam: Present normal appearance, PERRL and EOMI ENT ENT exam: Present normal exam, normal oropharynx, mucous membranes moist and normal external ear exam Neck Neck exam: Present normal inspection, full ROM and trachea midline; Absent tenderness Chest Chest inspection: Present normal inspection and symmetric chest wall rise; Absent tenderness Respiratory Respiratory exam: Present normal lung sounds bilaterally; Absent respiratory distress, wheezes, stridor or accessory muscle use Cardiovascular Cardiovascular exam: Present regular rate and normal rhythm Abdominal Exam Abdominal exam: Present soft; Absent distention, tenderness or guarding Extremities Exam Extremities exam: Present normal inspection, full ROM and normal capillary refill; Absent tenderness or edema Back Exam Back exam: Present normal inspection and full ROM; Absent tenderness Neurological Exam Neurological exam: Present alert, oriented X3, CN II-XII intact and normal gait; Absent motor sensory deficit Psychiatric Psychiatric exam: Present normal affect and normal mood Skin Skin exam: Present warm and dry Medical Decision Making Medical Records Medical records reviewed: Yes I reviewed the patient's medical records. Edwin Inquiry Pt receiving controlled substance: No Vital Signs: 05/26/24 08:30 05/26/24 08:37 05/26/24 08:40 Temperature 97.9 F Temperature Source Oral Pulse Rate 74 79 Pulse Rate [Left Radial] 76 Respiratory Rate 13 Blood Pressure 128/80 123/82 Blood Pressure [Right Arm] 128/80 Blood Pressure Mean 90 99 Blood Pressure Mean [Right Arm] 96 Blood Pressure Source Blood Pressure Position 02 Sat by Pulse Oximetry 100 100 100 Oxygen Delivery Method Room Air Room Air Room Air 05/26/24 08:50 05/26/24 08:55 05/26/24 09:00 Temperature Temperature Source Pulse Rate 82 81 78 Pulse Rate [Left Radial] Respiratory Rate Blood Pressure 120/79 127/80 118/82 Blood Pressure [Right Arm] Blood Pressure Mean 95 95 90 Blood Pressure Mean [Right Arm] Blood Pressure Source Blood Pressure Position 02 Sat by Pulse Oximetry 100 99 100 Oxygen Delivery Method Room Air Room Air Room Air 05/26/24 09:15 05/26/24 10:33 Temperature 97.9 F Temperature Source Oral Pulse Rate 88 88 Pulse Rate [Left Radial] Respiratory Rate 16 Blood Pressure 125/78 136/71 Blood Pressure [Right Arm] Blood Pressure Mean 91 Blood Pressure Mean [Right Arm] Blood Pressure Source Automatic Cuff Blood Pressure Position Sitting 02 Sat by Pulse Oximetry 100 Oxygen Delivery Method Room Air Room Air Lab Data Lab results reviewed: Yes I reviewed the patient's lab results. Lab Results 05/26/24 08:34: Urine Color Yellow, Urine Appearance Sl cloudy, Urine pH 7.0, Ur Specific [place] <= 1.005, Urine Protein Negative, Urine Glucose (UA) Negative, Urine Ketones Negative, Urine Blood 2+ A, Urine Nitrate Negative, Urine Bilirubin Negative, Urine Urobilinogen 0.2, Ur Leukocyte Esterase 1+ A, Urine RBC Occasional, Urine WBC Occasional, Ur Squamous Epith Cells 3-5, Urine Bacteria 1+ 05/26/24 08:40: WBC 6.4, RBC 4.74, Hgb 14.0, Hct 43.1, MCV 90.9, MCH 29.5, MCHC 32.5, RDW 13.4, Plt Count 247, MPV 8.9, Neut % (Auto) 64.4, Lymph % (Auto) 31.7, [place] % (Auto) 2.6, Eos % (Auto) 0.8, Baso % (Auto) 0.5, Neut # (Auto) 4.1, Lymph # (Auto) 2.0, [place] # (Auto) 0.2, Eos # (Auto) 0.1, Baso # (Auto) 0.0, Sodium 136, Potassium 3.7, Chloride 105, Carbon Dioxide 27, Anion Gap 7.7, BUN 4 L, Creatinine 0.60, Estimated Creat Clear 173, Estimated GFR 114, Est GFR ( Amer) 138, Glucose 101 H, Calcium 9.1, Total Bilirubin 0.5, AST 25, ALT 20, Alkaline Phosphatase 88, Total Protein 7.3, Albumin 4.4, Globulin 2.9, Albumin/Globulin Ratio 1.5, HCG, Quant [id number] H 05/26/24 09:10: Blood Type O Positive, Antibody Screen Negative 05/26/24 08:40 05/26/24 08:40 Orders (Tests/Meds): ORDERS Category Date Time Status Type and Screen Stat BBK 05/26/24 09:10 Completed CBC w/Auto Diff [Complete Blood Count Auto Diff] Stat Lab 05/26/24 08:40 Completed CMP [Comprehensive Metabolic Panel] Stat Lab 05/26/24 08:40 Completed HCG,Quantitative Stat Lab 05/26/24 08:40 Completed UA [Urinalysis and Microscopic] Stat Lab 05/26/24 08:34 Completed Urine Culture Stat Micro 05/26/24 08:34 Received US OB transvaginal Stat Ultrasound 05/26/24 08:53 Completed Medical Decision Narrative: In summary, this patient is a 33-year-old female presenting to the Emergency Department for evaluation of bright red vaginal bleeding in the setting of . Differential diagnoses considered include but are not limited to subchorionic hemorrhage, threatened , missed , implantation bleeding, ectopic . Ruling out the most morbid conditions drove assessment. It should be noted patient's history includes obesity which is not at goal therapy. This complicates all aspects of care by increasing patient's risk for morbidity. On exam, the patient is well-appearing. Abdominal exam is benign. Workup included CBC, CMP, quantitative hCG, type and screen, urinalysis, transvaginal ultrasound. I independently interpreted ultrasound prior to the radiologist read and noted viable intrauterine . Please see their read for final interpretation. I had an interactive discussion with [employer] who advised that the patient has a reassuring ultrasound with a viable IUP. She does have uterine fibroids and ovarian cyst, which I notified the patient of. Labs were obtained that demonstrated elevated hCG. No significant leukocytosis, elevation in liver enzymes, or other concerns. Urine demonstrates bacteriuria. Will treat as asymptomatic bacteriuria in the setting of . On reassessment, patient is resting comfortably with reassuring exam. Vitals are reassuring on cardiac telemetry. Patient was notified of all results. I advised that we cannot definitively exclude early miscarriage, however this is likely a result of subchorionic hemorrhage which is very common in early . I advised pelvic rest and close follow-up with [employer]. Patient expressed understanding and agreement. The patient was discharged after all questions were answered with strict return precautions. Critical Care Critical Care Time Critical Care Time: No
--- NOTE | 2024-05-26 09:54 | PC.NURSE ---
PT RETURNED FROM US
--- NOTE | 2024-05-26 09:56 | PC.NURSE ---
Pt given something to eat; okayd by Dr. Salter
[2024-05-26 10:00] LABS: HCG,Quantitative 16431 mIU/ml (0-5.42)
[2024-05-26 10:10] LABS: Anion Gap 7.7 mEq/L (5-15); Carbon Dioxide 27 mmol/L (22.0-30.0)
--- NOTE | 2024-05-26 10:24 | PC.NURSE ---
Dr. Freedman called to speak with Dr. Salter regarding US report
--- NOTE | 2024-05-26 10:24 | PC.NURSE ---
Dr. Salter at [facility]
== END 2024-05-26 10:35 | disposition home or self-care (01) ==
PROVIDERS: Emergency Provider Emergency Medicine; PCP Nurse Practitioner
DX: O41.8X10 Other specified disorders of amniotic fluid and membranes, first trimester, not applicable or unspecified (principal); O23.41 Unspecified infection of urinary tract in pregnancy, first trimester; O26.891 Other specified pregnancy related conditions, first trimester; R10.9 Unspecified abdominal pain; O24.111 Pre-existing type 2 diabetes mellitus, in pregnancy, first trimester; O99.281 Endocrine, nutritional and metabolic diseases complicating pregnancy, first trimester; E78.5 Hyperlipidemia, unspecified; E04.1 Nontoxic single thyroid nodule; O99.511 Diseases of the respiratory system complicating pregnancy, first trimester; G47.33 Obstructive sleep apnea (adult) (pediatric); O34.11 Maternal care for benign tumor of corpus uteri, first trimester
CPT/HCPCS: 76817; 80053; 81001; 84702; 85025; 86850; 87086; 99285

== ENCOUNTER 2024-06-10 09:16 | Outpatient (CLI) | payer OTHER, SELFPAY ==
[2024-06-10 09:53] LABS: Basophils # 0.1 K/mm3 (0-0.2); Basophils % 0.6 % (0.1-2.0); Eosinophils % 0.3 % (0.1-12.0); Hematocrit 42.1 % (37.0-47.0); Hemoglobin 13.6 g/dL (12.2-16.2); Lymphocytes # 1.6 K/mm3 (0.7-4.5); Lymphocytes % 19.5 % (10-50); Mean Corpuscular HGB Conc 32.3 g/dL (31.8-35.4); Mean Corpuscular Hemoglobin 29.3 pg (27.0-31.2); Mean Corpuscular Volume 90.9 fl (81-99); Mean Platelet Volume 7.6 fl (7.4-10.4); Monocytes # 0.3 K/mm3 (0.1-1.0); Monocytes % 3.3 % (1.7-9.3); Neutrophils # 6.2 K/mm3 (1.8-7.8); Neutrophils % 76.2 % (37.0-80.0); Platelet Count 262 K/mm3 (142-424); Red Blood Count 4.63 M/mm3 (4.20-5.40); Red Cell Distribution Width 12.8 % (11.5-17.5); White Blood Count 8.1 K/mm3 (4.8-10.8)
[2024-06-10 11:17] LABS: HIV (1&2) Antibody Rapid NONREACTIVE (NONREACTIVE)
[2024-06-11 06:40] LABS: HCV Ab Non Reactive (Non Reactive); Hepatitis B Surface Antigen Negative (Negative)
[2024-06-11 08:41] LABS: Rubella Antibodies, IgG <0.90 index (Immune >0.99)
[2024-06-11 12:14] LABS: Rapid Plasma Reagin Ab Titer Non Reactive titer (NonRea<1:1)
[2024-06-13 19:08] LABS: Neisseria gonorrhoeae, NAA Negative (Negative)
== END 2024-06-10 23:59 | disposition home or self-care (01) ==
LOC: LAB 09:16
PROVIDERS: PCP Nurse Practitioner; Visit Provider Obstetrics & Gynecology
DX: Z34.90 Encounter for supervision of normal pregnancy, unspecified, unspecified trimester (principal)
CPT/HCPCS: 36415; 85025; 86593; 86762; 86803; 86850; 87086; 87340; 87389; 87491; 87591

== ENCOUNTER 2024-06-22 11:18 | Outpatient (CLI) | payer OTHER, SELFPAY ==
[2024-06-22 12:54] LABS: HCG,Quantitative 122530 mIU/ml (0-5.42)
[2024-06-23 10:28] LABS: Progesterone 18.1 ng/mL (.)
== END 2024-06-22 23:59 | disposition home or self-care (01) ==
LOC: LAB 11:19
PROVIDERS: PCP Nurse Practitioner; Visit Provider Obstetrics & Gynecology
DX: Z34.90 Encounter for supervision of normal pregnancy, unspecified, unspecified trimester (principal)
CPT/HCPCS: 36415; 84144; 84702

== ENCOUNTER 2024-09-22 09:08 | Outpatient (CLI) | payer OTHER, SELFPAY ==
[2024-09-22 18:33] LABS: Coronavirus 19, PCR Not Detected (NotDetected); Human Rhinovirus Not Detected (NotDetected); Influenza A, PCR Not Detected (NotDetected); Influenza B, PCR Not Detected (NotDetected); Respiratory Syncytial Virus Not Detected (NotDetected)
== END 2024-09-22 23:59 | disposition home or self-care (01) ==
LOC: LAB.DROPOF 09-24 12:35
PROVIDERS: PCP Internal Medicine; Visit Provider Internal Medicine
DX: R09.81 Nasal congestion (principal)
CPT/HCPCS: 87631

== ENCOUNTER 2024-10-26 09:05 | Outpatient (CLI) | payer OTHER, SELFPAY ==
[2024-10-26 19:50] LABS: Basophils % 0.1 % (0.1-2.0); Hematocrit 33.7 % (37.0-47.0); Hemoglobin 10.8 g/dL (12.2-16.2); Lymphocytes # 1.7 K/mm3 (0.7-4.5); Lymphocytes % 21.3 % (10-50); Mean Corpuscular Hemoglobin 27.1 pg (27.0-31.2); Mean Corpuscular Volume 84.5 fl (81-99); Mean Platelet Volume 11.4 fl (7.4-10.4); Monocytes # 0.3 K/mm3 (0.1-1.0); Neutrophils # 6.1 K/mm3 (1.8-7.8); Platelet Count 180 K/mm3 (142-424); Red Blood Count 3.99 M/mm3 (4.20-5.40); Red Cell Distribution Width 13.1 % (11.5-17.5); White Blood Count 8.2 K/mm3 (4.8-10.8)
[2024-10-26 21:00] LABS: Alanine Aminotransferase 13 U/L (12-78); Albumin/Globulin Ratio 1.4 (1.1-1.8); Alkaline Phosphatase 89 U/L (38-126); Anion Gap 9.9 mEq/L (5-15); Aspartate Amino Transferase 18 U/L (14-36); Blood Urea Nitrogen 5 mg/dl (7-17); Calcium 8.6 mg/dl (8.4-10.2); Carbon Dioxide 23 mmol/L (22.0-30.0); Chloride 105 mmol/L (98-107); Estimated Glomerular Filt Rate 182 ml/min (>60); GFR (African American) 220 ML/MIN (>60); Globulin 2.2 g/dL (1.3-3.2); Glucose 83 mg/dl (74-100); Potassium 3.9 mmoL/L (3.5-5.1); Sodium 134 mmol/L (136-145); Total Protein,Serum 5.2 g/dl (6.3-8.2)
[2024-10-26 21:08] LABS: Bilirubin,Total < 0.1 mg/dl (0.2-1.3)
[2024-10-26 21:16] LABS: Hemoglobin A1C 5.2 % (4.0-6.0)
[2024-10-26 21:24] LABS: 25-OH Vitamin D, Total 37.1 ng/mL (30-100)
[2024-10-26 21:43] LABS: Thyroid Stimulating Hormone 0.07 uIU/mL (0.465-4.68)
[2024-10-26 22:02] LABS: Vitamin B12 323 pg/mL (239-931)
== END 2024-10-26 23:59 | disposition home or self-care (01) ==
LOC: LAB.DROPOF 10-27 09:40
PROVIDERS: PCP Nurse Practitioner; Visit Provider Nurse Practitioner
DX: O24.119 Pre-existing type 2 diabetes mellitus, in pregnancy, unspecified trimester (principal); Z79.4 Long term (current) use of insulin; Z3A.27 27 weeks gestation of pregnancy; Z98.84 Bariatric surgery status; E53.8 Deficiency of other specified B group vitamins; E55.9 Vitamin D deficiency, unspecified
CPT/HCPCS: 80053; 82306; 82607; 83036; 84443; 85025

== ENCOUNTER 2024-11-11 10:59 | Outpatient (CLI) | payer OTHER, SELFPAY ==
[2024-11-11 11:11] VITALS: BMI 35.6
[2024-11-11 11:22] LABS: Microscopic, Urine URINE MICROSCOPIC (MICROSCOPIC)
[2024-11-11 11:23] VITALS: BP 126/74; PULSE 111; RESP 18; O2SAT 97; BMI 35.6
[2024-11-11 11:25] LABS: Appearance,Urine CLEAR (Clear); Bilirubin,Urine Negative (Negative); Blood, Urine Negative (Negative); Color,Urine YELLOW (Yellow); Glucose,Urine (UA) Negative (Negative); Ketones,Urine Negative (Negative); Leukocyte Esterase,Urine TRACE (Negative); Nitrate,Urine Negative (Negative); Protein,Urine Negative (Negative); Urobilinogen,Urine 0.2 EU/dl (0.2)
[2024-11-11 11:38] LABS: Amphetamine/Metha Screen,Urine Negative ng/ml (<1000)
[2024-11-11 11:39] LABS: Barbiturates Screen,Urine Negative ng/ml (<200); Benzodiazepines Screen,Urine Negative ng/ml (<200)
[2024-11-11 11:40] LABS: Cannabinoid Screen,Urine Negative ng/ml (<50)
[2024-11-11] MEDS: LACTATED RINGERS 1000ML 1,000 ML 999 ML IV (11:40)
[2024-11-11 11:41] LABS: Cocaine Screen,Urine Negative ng/ml (<300); Methadone Screen,Urine Negative ng/ml (<300)
[2024-11-11 11:42] LABS: Opiate Screen,Urine Negative ng/ml (<300)
[2024-11-11 11:43] LABS: Bacteria,Urine 2+ /lpf; Phencyclidine Screen,Urine Negative ng/ml (<25)
[2024-11-11] MEDS: TERBUTALINE SULFATE 1MG/ML VIAL 0.25 MG SUBCUT (12:12)
[2024-11-11] MEDS: NIFEdipine 10MG CAPSULE 10 MG PO (13:32)
[2024-11-11 13:46] LABS: Fetal Fibronectin (Rapid) Negative (Negative)
== END 2024-11-11 14:13 | disposition home or self-care (01) ==
LOC: OBOUT 11:01 → OB 11:02
PROVIDERS: PCP Nurse Practitioner; Visit Provider Nurse Practitioner Obstetrics & Gynecology
DX: O36.8120 Decreased fetal movements, second trimester, not applicable or unspecified (principal); Z3A.25 25 weeks gestation of pregnancy
CPT/HCPCS: 80307; 81001; 82731; 87086; G0463; J3105; J7120

== ENCOUNTER 2024-11-23 16:21 | Outpatient (CLI) | payer OTHER, SELFPAY ==
[2024-11-23 16:30] VITALS: BMI 35.6
[2024-11-23 16:39] VITALS: BMI 35.6
== END 2024-11-23 17:05 | disposition home or self-care (01) ==
LOC: OBOUT 16:23 → OB 16:24
PROVIDERS: PCP Nurse Practitioner; Visit Provider Obstetrics & Gynecology
DX: O24.113 Pre-existing type 2 diabetes mellitus, in pregnancy, third trimester (principal); Z3A.31 31 weeks gestation of pregnancy
CPT/HCPCS: G0463

== ENCOUNTER 2024-12-11 14:57 | Outpatient (CLI) | payer OTHER, SELFPAY ==
--- NOTE | 2024-12-11 14:58 | US_ITS ---
PROCEDURE: US OB BIOPHYSICAL PROFILE CLINICAL INDICATION: GDM COMPARISON: US US OB TRANSVAGINAL from 05/26/2024 FINDINGS: Transabdominal sonographic images of the uterus were obtained. From her established due date she is 34weeks 1day. There appears to be an anterior fibroid measuring 3.9 cm. The following parameters are obtained: Viable Fetus in the cephalic presentation with an anterior placenta grade 2. Average ultrasound age is 34weeks 4days Estimated weight 2,386g, 5 lb 4 oz. Measurements: heart Rate = 155bpm BPD = 34weeks 4days, 61 percentile HC = 35weeks 5days, 54 percentile AC = 34weeks 5days, 71 percentile FL = 32weeks 6days, 10 percentile HC/AC is 1.03 FL/BPD is 0.74 FL/AC is 0.21 47 percentile Amniotic fluid index: 11.64cm MVP 3.11 cm. Left upper quadrant measurement was missed and it was 3 cm deep. Qualitative AFV:2 Breathing movements: 2 Gross Body Movements: 2 Tone: 2 Biophysical profile score: 8 No obvious anomalies evident.Kidneys, stomach, bladder, four-chamber heart, three-vessel cord appear normal. IMPRESSION: 1. Viable fetus in the cephalic presentation with an anterior placenta grade 2. 2. The fluid is within normal limits with an amniotic fluid index 11.64 cm, MVP 3.11 cm. 3. Biophysical profile is 8/8 with good breathing movement and movement seen. 4. There has been good interval growth with the fetus currently 47th percentile. 5. Limited anatomical scan appears normal. 6. There is a 3.9 cm anterior fibroid. Dictated by: Luis Alfredo Freedman MD 12/11/2024 21:04 Luis Alfredo Freedman MD in [place] 12/11/2024 21:04
== END 2024-12-11 23:59 | disposition home or self-care (01) ==
PROVIDERS: PCP Nurse Practitioner; Visit Provider Obstetrics & Gynecology
DX: O24.419 Gestational diabetes mellitus in pregnancy, unspecified control (principal); O24.113 Pre-existing type 2 diabetes mellitus, in pregnancy, third trimester; O99.213 Obesity complicating pregnancy, third trimester; Z3A.34 34 weeks gestation of pregnancy
CPT/HCPCS: 76816; 76819

== ENCOUNTER 2024-12-12 09:00 | Observation (INO) | payer OTHER, SELFPAY ==
[2024-12-12 09:06] VITALS: BMI 37.3
[2024-12-12 09:16] VITALS: BMI 37.3
[2024-12-12 09:27] LABS: Microscopic, Urine URINE MICROSCOPIC (MICROSCOPIC)
[2024-12-12 09:30] LABS: Appearance,Urine CLEAR (Clear); Bilirubin,Urine Negative (Negative); Blood, Urine Negative (Negative); Color,Urine YELLOW (Yellow); Glucose,Urine (UA) Negative (Negative); Ketones,Urine Negative (Negative); Leukocyte Esterase,Urine Negative (Negative); Nitrate,Urine Negative (Negative); PH,Urine 7.5 (5.0-8.5); Protein,Urine Negative (Negative); Specific Gravity, Urine 1.025 (1.005-1.030)
[2024-12-12 09:41] LABS: Fetal Membrane Rupture (Rapid) Positive (Negative)
[2024-12-12] MEDS: AMPICILLIN SODIUM 2 GM in 0.9 % SODIUM CHLORIDE 100 ML IV (10:27)
[2024-12-12] MEDS: LACTATED RINGERS 1000ML 1,000 ML 999 ML IV (10:27)
--- NOTE | 2024-12-12 10:28 | EXP.HPDC ---
General Admission date:: 12/12/24 Discharge date: 12/12/24 *Admission Date: 12/12/24 *Chief complaint: Leakage of fluid *History of present illness: Mrs Kaity Norwood is a very pleasant 34 yo at 34 weeks 2 days who presents to [facility] L[facility] for mucus discharge followed by leakage of fluid between [id number] this morning. She has been having intermittent contractions for the past few weeks. Amnisure was performed and was positive. Cervical exam was a dimple and very soft, -2 station per RN. Baby is active. complicated by pregestational diabetes type 2, AMA, Maternal obesity (hx of bariatric surgery), generalized anxiety (taking rizatriptan and venlafaxine), uterine fibroids. She has had good care. She has been comanaged with PDC. She is currently taking 12 units of Lispro with breakfast and lunch and 14 units with dinner. [facility] Disclaimer: The information contained in this section may have been updated after the patient was seen, as this information can be updated by other users. Medical History (Updated 12/12/24 @ 10:48 by Ingris Braxton DO) with 34 completed weeks gestation premature rupture of membranes Sore throat (viral) Vaginitis affecting , antepartum Rubella non-immune status, antepartum Pre-existing type 2 diabetes mellitus during Advanced maternal age, 1st Maternal obesity affecting , antepartum Thyroid nodule Hyperlipidemia Uterine leiomyoma CATHY (obstructive sleep apnea) Type 2 diabetes mellitus Generalized anxiety disorder Surgical History Hx of bariatric surgery (~04/2023) Family History Grandfather Diabetes Grandmother Diabetes Anemia Thyroid disorder Hypertension Heart attack Family/Other Cancer Uncle Social History (Updated 12/11/24 @ 08:49 by Linda Soriano APRN) Smoking Status: Former smoker tobacco type: cigarettes packs per day: 0 alcohol intake: never counseling given: No substance use type: denies use current occupational status: other Travel in the last 8 weeks: None household members: spouse housing: house marital status: number of children: 0 service: No care home: No leisure activities: exercise Hx Recent Travel: No sexually active: Yes (with her ) Have you lived/traveled outside [place] in past 30 days?: No Contact w/someone who lives/traveled outside [place] past 30 days?: No Exposure to someone with infectious disease in past 14 days?: No Do you have a fever (greater than 100.4 F or 38 C)?: No Have you tested positive for COVID-19: No Exposed to someone with COVID-19 in past 14 days?: No Do you have a sore throat?: No Do you have a cough?: No Do you have any weakness?: No Do you have any diarrhea?: No Are you experiencing any unusual bleeding?: No Do you have any muscle aches/pain?: No Do you have any abdominal pain?: No Are you experiencing loss of taste or smell?: No Other Medical History Have you received the Flu Vaccine for this season: No Have you received the Pneumonia Vaccine: Yes Review of Systems Review of Systems Review of systems:: pertinent systems reviewed and negative unless documented below *Genitourinary Comments: + leakage of fluid Exam Data for Last 24 hours Vital signs and Labs for Last 24 Hours: Laboratory Results - last 24 hr 12/12/24 09:00: Urine Color Yellow, Urine Appearance Clear, Urine pH 7.5, Ur Specific [place] 1.025, Urine Protein Negative, Urine Glucose (UA) Negative, Urine Ketones Negative, Urine Blood Negative, Urine Nitrate Negative, Urine Bilirubin Negative, Urine Urobilinogen 1.0, Ur Leukocyte Esterase Negative, Urine RBC None, Urine WBC None, Ur Squamous Epith Cells None, Urine Bacteria None, Membrane Rupture Positive A I & O for Last 24 hours: Intake & Output 12/09/24 12/10/24 12/11/24 12/12/24 23:59 23:59 23:59 23:59 Weight 204 lb Constitutional Constitutional: no acute distress and cooperative *Routine HEENT Exam Head: Present normocephalic and atraumatic Eye: Absent conjunctivae pink ENT: Present mucous membranes moist *Routine Neck Exam Neck: Present full ROM *Routine Respiratory Exam Respiratory: Present CTA bilaterally and normal respiratory effort *Routine Cardiovascular Exam Cardiovascular: Present RRR *Routine Abdominal Exam Abdominal: Present soft (Gravid); Absent tenderness *Routine Rectal Exam Rectal:: deferred *Routine Genitalia Exam Genitalia:: normal female *Routine Extremities Exam Extremities: Present full ROM; Absent edema or calf tenderness *Routine Neurological Exam Neurological: Present alert, moving all extremities and normal speech Routine Psychiatric Exam Psychiatric: Present normal affect and cooperative Meds Home Medications and Allergies Home Medications ?Medication ?Instructions ?Recorded ?Confirmed ?Type rizatriptan 10 mg disintegrating 10 mg PO PRN 08/29/22 12/11/24 History tablet omeprazole 20 mg capsule,delayed 20 mg PO DAILY PRN 01/24/24 12/11/24 History release blood sugar diagnostic #30 ea 09/25/24 12/11/24 Rx blood-glucose meter (Accu-Chek #1 ea 09/25/24 12/11/24 Rx Guide Glucose Meter) lancets 23 gauge (Acti-Quinn #100 ea 09/25/24 12/11/24 Rx Lancets) insulin lispro 100 unit/mL SQ 10/26/24 12/11/24 History subcutaneous pen blood-glucose sensor (Dexcom G7 #1 ea 11/09/24 12/11/24 History Sensor device) pen needle, diabetic 31 gauge x #1,200 ea 11/09/24 12/11/24 History 3/16 (BD Ultra-Fine Mini Pen Needle) aripiprazole 10 mg tablet See Rx Instructions .Route 12/11/24 12/11/24 Rx .COMPLEX #30 tabs venlafaxine 150 mg See Rx Instructions .Route 12/11/24 12/11/24 Rx capsule,extended release 24 hr .COMPLEX #90 caps venlafaxine 75 mg capsule,extended See Rx Instructions .Route 12/11/24 12/11/24 Rx release 24 hr .COMPLEX #90 caps New Prescriptions to Start Prescriptions: Allergies Allergy/AdvReac Type Severity Reaction Status Date / Time benzoyl peroxide Allergy Mild rash Verified 12/11/24 08:29 salicylic acid Allergy Mild Rash Verified 12/11/24 08:29 Hospital Course Hospital Course Hospital Course: Mrs Kaity Norwood is a very pleasant 34 yo at 34 weeks 2 days who presents to [facility] L[facility] for mucus discharge followed by leakage of fluid between 6835-8669 this morning. She has been having intermittent contractions for the past few weeks. Amnisure was performed and was positive. Cervical exam was a dimple and very soft, -2 station per RN. Baby is active. complicated by pregestational diabetes type 2, AMA, Maternal obesity (hx of bariatric surgery), generalized anxiety, uterine fibroids. She has had good care. She has been comanaged with PDC. She is currently taking 12 units of Lispro with breakfast and lunch and 14 units with dinner. NST category 2 with baseline 150 bpm, moderate and minimal variability, occasional variable decelerations and 15 x 15 accelerations. [place] every 2-3 minutes but Isidra denies feeling contractions. Ampicillin 2 gram was started for PROM. Discussed case with Dr. Rowe at [facility] who accepted transfer of care. Isidra was transferred to [facility]. Results Data Completed and Pending Labs on day of discharge: Labs from last 24 hours 12/12/24 09:00 Urine Color Yellow Urine Appearance Clear Urine pH 7.5 Ur Specific [place] 1.025 Urine Protein Negative Urine Glucose (UA) Negative Urine Ketones Negative Urine Blood Negative Urine Nitrate Negative Urine Bilirubin Negative Urine Urobilinogen 1.0 Ur Leukocyte Esterase Negative Urine RBC None Urine WBC None Ur Squamous Epith Cells None Urine Bacteria None Membrane Rupture Positive A DS: Diagnosis Discharge Diagnosis (1) premature rupture of membranes: Status: Acute Code(s): O42.919 - premature rupture of membranes, unspecified as to length of time between rupture and onset of labor, unspecified trimester Qualifiers: PROM onset of labor timing: unspecified duration between rupture of membranes and onset of labor Qualified Code(s): O42.919 - premature rupture of membranes, unspecified as to length of time between rupture and onset of labor, unspecified trimester (2) with 34 completed weeks gestation: Status: Acute Code(s): Z3A.34 - 34 weeks gestation of (3) Pre-existing type 2 diabetes mellitus during : Status: Acute Code(s): O24.119 - Pre-existing type 2 diabetes mellitus, in , unspecified trimester Qualifiers: Trimester: unspecified trimester Qualified Code(s): O24.119 - Pre-existing type 2 diabetes mellitus, in , unspecified trimester (4) Maternal obesity affecting , antepartum: Status: Acute Code(s): O99.210 - Obesity complicating , unspecified trimester Qualifiers: Obesity type affecting : unspecified obesity Qualified Code(s): O99.210 - Obesity complicating , unspecified trimester (5) Advanced maternal age, 1st : Status: Acute Code(s): O09.519 - Supervision of elderly primigravida, unspecified trimester Qualifiers: Trimester: third trimester Qualified Code(s): O09.513 - Supervision of elderly primigravida, third trimester (6) Hx of bariatric surgery: Status: Acute Code(s): Z98.84 - Bariatric surgery status (7) Uterine leiomyoma: Status: Acute Code(s): D25.9 - Leiomyoma of uterus, unspecified Qualifiers: Uterine leiomyoma location: unspecified location Qualified Code(s): D25.9 - Leiomyoma of uterus, unspecified Problem details: 1.8 x 1.6 cm fibroid in the anterior aspect of the body of the uterus. 1.5 cm fibroid along the fundus of the uterus. 3.5 cm area of heterogeneous echogenicity in the left aspect of the body of the uterus suggesting a fibroid, possibly pedunculated. (8) Generalized anxiety disorder: Status: Acute Code(s): F41.1 - Generalized anxiety disorder (9) Bipolar I disorder: Status: Chronic Code(s): F31.9 - Bipolar disorder, unspecified (10) H/O LEEP: Status: Acute Code(s): Z98.890 - Other specified postprocedural states (11) Rubella non-immune status, antepartum: Status: Acute Code(s): O09.899 - Supervision of other high risk pregnancies, unspecified trimester; Z28.39 - Other underimmunization status Discharge Plan Disposition Patient Disposition: Home, Self-Care Follow up Plan Prescriptions/Medication Reconciliation: Continued rizatriptan 10 mg tablet,disintegrating 10 mg PO PRN omeprazole 20 mg capsule,delayed release(DR/EC) 20 mg PO DAILY PRN Patient Comments: TAKE 1 CAPSULE BY MOUTH ONCE DAILY (DME) Acti-Quinn Lancets 23 gauge misc See Rx Instructions .Route Qty: 100 1RF Rx Instructions: As directed (DME) blood sugar diagnostic Strip See Rx Instructions .Route Qty: 30 1RF Rx Instructions: As directed (DME) blood-glucose meter [Accu-Chek Guide Glucose Meter] Misc See Rx Instructions .Route Qty: 1 0RF Rx Instructions: As directed insulin lispro 100 unit/mL insulin pen SQ Patient Comments: INJECT 4 UNITS SUBCUTANEOUSLY THREE TIMES DAILY BEFORE MEAL(S) aripiprazole 10 mg tablet See Rx Instructions .ROUTE .COMPLEX Qty: 30 3RF Dose Instruction: TAKE 1 TABLET BY MOUTH ONCE DAILY AT BEDTIME Rx Instructions: TAKE 1 TABLET BY MOUTH ONCE DAILY AT BEDTIME venlafaxine 150 mg capsule,extended release 24hr See Rx Instructions .ROUTE .COMPLEX Qty: 90 1RF Dose Instruction: TAKE 1 CAPSULE BY MOUTH ONCE DAILY. TAKE ALONG WITH 75 MG CAPSULE FOR A TOTAL DAILY DOSE OF 225 MG Rx Instructions: TAKE 1 CAPSULE BY MOUTH ONCE DAILY. TAKE ALONG WITH 75 MG CAPSULE FOR A TOTAL DAILY DOSE OF 225 MG venlafaxine 75 mg capsule,extended release 24hr See Rx Instructions .ROUTE .COMPLEX Qty: 90 1RF Dose Instruction: TAKE 1 CAPSULE BY MOUTH ONCE DAILY FOR ANXIETY Rx Instructions: TAKE 1 CAPSULE BY MOUTH ONCE DAILY FOR ANXIETY (DME) pen needle, diabetic [BD Ultra-Fine Mini Pen Needle] 31 gauge x 3/16 needle See Rx Instructions .ROUTE .MEDSUPPLY Qty: 1200 Patient Comments: USE 1 PEN NEEDLE 4 TIMES DAILY Rx Instructions: As directed (DME) Dexcom G7 Sensor Device See Rx Instructions .ROUTE .MEDSUPPLY Qty: 1 Patient Comments: USE 1 EVERY 10 DAYS Rx Instructions: As directed Discontinued aspirin 81 mg tablet,chewable 81 mg PO DAILY nifedipine 10 mg capsule 10 mg PO TID PRN (Reason: contractions) Qty: 90 2RF Rx Instructions: Take up to 3 times daily for contractions. Problem Reconciliation Problems Reviewed?: Yes Patient Discharge Instructions ACTIVITY: Continue current activity DIET: continue same diet Stand Alone Forms: Transfer Record Print Language: Urdu Providers Primary Care Provider: Laya Guaman Attending Provider: Ingris Braxton
== END 2024-12-12 11:11 | disposition short-term general hospital (02) ==
LOC: OBOUT 12-15 07:06 → OB 12-17 10:03
PROVIDERS: Admitting Provider Obstetrics & Gynecology; PCP Nurse Practitioner; Visit Provider Obstetrics & Gynecology
DX: O42.913 Preterm premature rupture of membranes, unspecified as to length of time between rupture and onset of labor, third trimester (principal); O24.113 Pre-existing type 2 diabetes mellitus, in pregnancy, third trimester; Z3A.34 34 weeks gestation of pregnancy; O99.213 Obesity complicating pregnancy, third trimester; Z98.84 Bariatric surgery status; D25.9 Leiomyoma of uterus, unspecified; F41.1 Generalized anxiety disorder; F31.9 Bipolar disorder, unspecified; Z79.4 Long term (current) use of insulin; Z79.899 Other long term (current) drug therapy; E66.01 Morbid (severe) obesity due to excess calories
CPT/HCPCS: 81001; 84112; G0378; J0290; J7120

== ENCOUNTER 2024-12-23 15:56 | Emergency (ER) | payer OTHER, SELFPAY ==
[2024-12-23 16:08] VITALS: BP 149/93; PULSE 96; RESP 14; TEMP 36.9; O2SAT 100; BMI 37.3
[2024-12-23 16:30] VITALS: BP 130/87; PULSE 93; O2SAT 100
--- NOTE | 2024-12-23 16:33 | CT_ITS ---
PROCEDURE INFORMATION: Exam: CT Head Without Contrast Exam date and time: 12/23/2024 4:46 PM Age: 34 years old Clinical indication: Pain; Headache; Additional info: R sided DELEON TECHNIQUE: Imaging protocol: Computed tomography of the head without contrast. Radiation optimization: All CT scans at this facility use at least one of these dose optimization techniques: automated exposure control; mA and/or kV adjustment per patient size (includes targeted exams where dose is matched to clinical indication); or iterative reconstruction. COMPARISON: CT HEAD/BRAIN WO/W CON 03/14/2022 1:15 PM FINDINGS: Brain: Normal. No hemorrhage. Unremarkable white matter. No mass effect. Cerebral ventricles: No ventriculomegaly. Paranasal sinuses: Visualized sinuses are unremarkable. No fluid levels. Mastoid air cells: Visualized mastoid air cells are well aerated. Bones: Unremarkable. No acute fracture. Soft tissues: Unremarkable. IMPRESSION: No acute intracranial abnormality.
--- NOTE | 2024-12-23 16:38 | ED_ITS ---
Discharge Plan Disposition Patient Disposition: Home, Self-Care Chief Complaint: Headache Prescriptions Prescriptions: No Action rizatriptan 10 mg tablet,disintegrating 10 mg PO PRN omeprazole 20 mg capsule,delayed release(DR/EC) 20 mg PO DAILY PRN Patient Comments: TAKE 1 CAPSULE BY MOUTH ONCE DAILY (DME) Acti-Quinn Lancets 23 gauge misc See Rx Instructions .Route Qty: 100 1RF Rx Instructions: As directed (DME) blood sugar diagnostic Strip See Rx Instructions .Route Qty: 30 1RF Rx Instructions: As directed (DME) blood-glucose meter [Accu-Chek Guide Glucose Meter] Misc See Rx Instructions .Route Qty: 1 0RF Rx Instructions: As directed insulin lispro 100 unit/mL insulin pen SQ Patient Comments: INJECT 4 UNITS SUBCUTANEOUSLY THREE TIMES DAILY BEFORE MEAL(S) aripiprazole 10 mg tablet See Rx Instructions .ROUTE .COMPLEX Qty: 30 3RF Dose Instruction: TAKE 1 TABLET BY MOUTH ONCE DAILY AT BEDTIME Rx Instructions: TAKE 1 TABLET BY MOUTH ONCE DAILY AT BEDTIME venlafaxine 150 mg capsule,extended release 24hr See Rx Instructions .ROUTE .COMPLEX Qty: 90 1RF Dose Instruction: TAKE 1 CAPSULE BY MOUTH ONCE DAILY. TAKE ALONG WITH 75 MG CAPSULE FOR A TOTAL DAILY DOSE OF 225 MG Rx Instructions: TAKE 1 CAPSULE BY MOUTH ONCE DAILY. TAKE ALONG WITH 75 MG CAPSULE FOR A TOTAL DAILY DOSE OF 225 MG venlafaxine 75 mg capsule,extended release 24hr See Rx Instructions .ROUTE .COMPLEX Qty: 90 1RF Dose Instruction: TAKE 1 CAPSULE BY MOUTH ONCE DAILY FOR ANXIETY Rx Instructions: TAKE 1 CAPSULE BY MOUTH ONCE DAILY FOR ANXIETY (DME) pen needle, diabetic [BD Ultra-Fine Mini Pen Needle] 31 gauge x 3/16 needle See Rx Instructions .ROUTE .MEDSUPPLY Qty: 1200 Patient Comments: USE 1 PEN NEEDLE 4 TIMES DAILY Rx Instructions: As directed (DME) Dexcom G7 Sensor Device See Rx Instructions .ROUTE .MEDSUPPLY Qty: 1 Patient Comments: USE 1 EVERY 10 DAYS Rx Instructions: As directed Referrals Follow up/Referrals: Provider,Referral, MD [Primary Care Provider] - See instructions Activity Restrictions/Add. Instructions Additional Instructions/Restrictions: At this time it was felt you are safe to be discharged home. If new or worsening symptoms please do not hesitate to return the emergency department. As discussed if your headache persist please follow-up with your family doctor for continued investigation. Clinical Impressions Clinical Impression: Headache Print Language Print Language: Persian Discharge ED Provider: Elton Loo General Adult HPI General Chief complaint: Headache Stated complaint: headache for 24 hours Time Seen by Provider: 12/23/24 16:01 Mode of Arrival: Ambulatory Source of Information: Patient Description of Symptoms (Recalled from ER Triage Doc. by RN): Pt presents for evaluation of a headache that she has had the last 24 hours. Pt states her headache is right sided and sharp stabbing in nature. Pt states she gave 10 days ago, and had an epidural. rates pain as a 7/10 History of Present Illness HPI narrative: Patient is a 34-year-old female with past medical history of recent delivery without complication to a 35 weeker who presents emergency department for evaluation of headache. Onset was acute, over the last 24 hours, right sided, 5 out of 10, associated photophobia. She has had frontal sinus headaches but never unilateral headaches. No trauma. She did have an epidural 10 days ago. No other acute complaints at this time. Please note that above description of symptoms, in this electronic medical record under categorization of recalled from ER triage doctor by RN are reflective of an initial nursing assessment, however, is not reflective of my full history and physical exam that was personally taken and clarified. Consequentially, this preceding description of symptoms, which may include the patient's categorized chief complaint in the EMR, do not reflect my personal clinical impression, and the ultimate description of history of present illness and patient stated complaints should be deferred to this section of the note. Unless stated otherwise or congruent with this section of the note, additional signs, symptoms, or incongruence should be interpreted as inaccurate with my clinical impression. Related Data Home Medications ?Medication ?Instructions ?Recorded ?Confirmed rizatriptan 10 mg disintegrating 10 mg PO PRN 08/29/22 12/11/24 tablet omeprazole 20 mg capsule,delayed 20 mg PO DAILY PRN 01/24/24 12/11/24 release insulin lispro 100 unit/mL SQ 10/26/24 12/11/24 subcutaneous pen blood-glucose sensor (Dexcom G7 #1 ea 11/09/24 12/11/24 Sensor device) pen needle, diabetic 31 gauge x #1,200 ea 11/09/24 12/11/2412/06 (BD Ultra-Fine Mini Pen Needle) Previous Rx's ?Medication ?Instructions ?Recorded blood sugar diagnostic #30 ea 09/25/24 blood-glucose meter (Accu-Chek #1 ea 09/25/24 Guide Glucose Meter) lancets 23 gauge (Acti-Quinn #100 ea 09/25/24 Lancets) aripiprazole 10 mg tablet See Rx Instructions .Route 12/11/24 .COMPLEX #30 tabs venlafaxine 150 mg See Rx Instructions .Route 12/11/24 capsule,extended release 24 hr .COMPLEX #90 caps venlafaxine 75 mg capsule,extended See Rx Instructions .Route 12/11/24 release 24 hr .COMPLEX #90 caps Allergies Allergy/AdvReac Type Severity Reaction Status Date / Time benzoyl peroxide Allergy Mild rash Verified 12/23/24 17:21 salicylic acid Allergy Mild Rash Verified 12/23/24 17:21 [facility] Disclaimer: The information contained in this section may have been updated after the patient was seen, as this information can be updated by other users. Medical History (Updated 12/23/24 @ 18:19 by Elton Loo MD) Abscess of Bartholin's gland with 34 completed weeks gestation premature rupture of membranes Sore throat (viral) Vaginitis affecting , antepartum Rubella non-immune status, antepartum Pre-existing type 2 diabetes mellitus during Advanced maternal age, 1st Maternal obesity affecting , antepartum Thyroid nodule Hyperlipidemia Uterine leiomyoma CATHY (obstructive sleep apnea) Type 2 diabetes mellitus Generalized anxiety disorder Surgical History (Updated 12/15/24 @ 00:00 by Himanshu Barrett) Hx of bariatric surgery (~04/2023) Family History Grandfather Diabetes Grandmother Diabetes Anemia Thyroid disorder Hypertension Heart attack Family/Other Cancer Uncle Social History (Updated 12/11/24 @ 08:49 by Linda Soriano APRN) Smoking Status: Current every day smoker tobacco type: cigarettes packs per day: 0 alcohol intake: never counseling given: No substance use type: denies use current occupational status: other Travel in the last 8 weeks: None household members: spouse housing: house marital status: number of children: 0 service: No [place] [facility]: No leisure activities: exercise Hx Recent Travel: No sexually active: Yes (with her ) Have you lived/traveled outside [place] in past 30 days?: No Contact w/someone who lives/traveled outside [place] past 30 days?: No Exposure to someone with infectious disease in past 14 days?: No Do you have a fever (greater than 100.4 F or 38 C)?: No Have you tested positive for COVID-19: No Exposed to someone with COVID-19 in past 14 days?: No Do you have a sore throat?: No Do you have a cough?: No Do you have any weakness?: No Do you have any diarrhea?: No Are you experiencing any unusual bleeding?: No Do you have any muscle aches/pain?: No Do you have any abdominal pain?: No Are you experiencing loss of taste or smell?: No Other Medical History Have you received the Flu Vaccine for this season: No Have you received the Pneumonia Vaccine: Yes ROS Obtained: Yes Systems reviewed as appropriate & no additional complaints except as documented Physical Exam General General appearance: alert and in no apparent distress Head Head exam: atraumatic and normocephalic Eye Eye exam: Present PERRL and EOMI ENT ENT exam: Present mucous membranes moist and TM's normal bilaterally Neck Neck exam: Present normal inspection Chest Chest inspection: Present normal inspection and symmetric chest wall rise Respiratory Respiratory exam: Absent respiratory distress Cardiovascular Cardiovascular exam: Present regular rate and normal rhythm Abdominal Exam Abdominal exam: Present soft Extremities Exam Extremities exam: Present normal inspection Neurological Exam Neurological exam: Present alert, oriented X3 and CN II-XII intact; Absent motor sensory deficit Psychiatric Psychiatric exam: Present normal affect Skin Skin exam: Present warm and dry Medical Decision Making Medical Records Screening: Per USPSTF and CDC recommendations, given the prevalence of disease in our region, it is our hospital?s policy to screen for HIV and viral Hepatitis for all patients aged 18 and over and those with ongoing risk factors. Edwin Inquiry Pt receiving controlled substance: No Vital Signs: 12/23/24 16:08 Temperature 98.4 F Temperature Source Oral Pulse Rate [Right] 96 H Respiratory Rate 14 Blood Pressure [Right Arm] 149/93 H Blood Pressure Mean [Right Arm] 111 Blood Pressure Source [Right Arm] Automatic Cuff Blood Pressure Position [Right Arm] Sitting 02 Sat by Pulse Oximetry 100 Oxygen Delivery Method Room Air Lab Data Lab Results 12/23/24 16:57: SARS-CoV-2 (PCR) Not detected, Influenza A Untype (PCR) Not detected, Influenza Type B (PCR) Not detected 12/23/24 17:11: WBC 7.1, RBC 4.80, Hgb 11.5 L, Hct 36.9 L, MCV 76.9 L, MCH 24.0 L, MCHC 31.2 L, RDW 13.4, Plt Count 305, MPV 10.1, Neut % (Auto) 62.3, Lymph % (Auto) 33.0, Burt % (Auto) 4.0, Eos % (Auto) 0.0 L, Baso % (Auto) 0.1, Neut # (Auto) 4.4, Lymph # (Auto) 2.3, Burt # (Auto) 0.3, Eos # (Auto) 0.0, Baso # (Auto) 0.0, Sodium 140, Potassium 3.6, Chloride 104, Carbon Dioxide 30, Anion Gap 9.6, BUN 15, Creatinine 0.50 L, Estimated Creat Clear 229, Estimated GFR 140, Est GFR ( Amer) 170, Glucose 66 L, Calcium 9.1, Total Bilirubin 0.3, AST 30, ALT 20, Alkaline Phosphatase 99, Total Protein 6.8 D, Albumin 3.9, Globulin 2.9, Albumin/Globulin Ratio 1.3 12/23/24 17:18: Urine Color Yellow, Urine Appearance Clear, Urine pH 6.0, Ur Specific [place] 1.015, Urine Protein Negative, Urine Glucose (UA) Negative, Urine Ketones Negative, Urine Blood 3+ A, Urine Nitrate Negative, Urine Bilirubin Negative, Urine Urobilinogen 0.2, Ur Leukocyte Esterase 1+ A, Urine RBC 5-10, Urine WBC Occasional, Ur Squamous Epith Cells None, Urine Bacteria 1+ 12/23/24 17:11 12/23/24 17:11 Orders (Tests/Meds): ED MEDICATIONS Discontinued Medications Generic Name Dose Route Start Last Admin Trade Name Freq PRN Reason Stop Dose Admin Acetaminophen 1,000 mg 12/23/24 16:31 12/23/24 16:56 Acetaminophen 500mg Tab PO 12/23/24 16:32 1,000 mg ONCE ONE Administration Diphenhydramine HCl 25 mg 12/23/24 16:31 12/23/24 16:56 Diphenhydramine 50mg/Ml Vial IV 12/23/24 16:32 25 mg ONCE ONE Administration Lactated Ringer's 1,000 mls @ 999 mls/hr 12/23/24 16:31 12/23/24 16:56 Lactated Ringer's 1000 Ml Bag IV 12/23/24 17:31 999 mls/hr .Q1H1M ONE Administration Prochlorperazine Edisylate 5 mg 12/23/24 16:31 12/23/24 16:56 Prochlorperazine 10mg/2ml Vial IV 12/23/24 16:32 5 mg ONCE ONE Administration ORDERS Category Date Time Status CT head/brain wo con Stat Cat Scan 12/23/24 16:33 Completed CBC w/Auto Diff [Complete Blood Count Auto Diff] Stat Lab 12/23/24 17:11 Completed CMP [Comprehensive Metabolic Panel] Stat Lab 12/23/24 17:11 Completed Rapid PCR Covid and Flu A/B Stat Lab 12/23/24 16:57 Completed UA [Urinalysis and Microscopic] Stat Lab 12/23/24 17:18 Completed Urine Culture Stat Micro 12/23/24 17:18 Received Medical Decision Narrative: In summary patient is a 34-year-old female past medical history described above presents emerged part for evaluation of headache. Patient is hemodynamically stable nontoxic-appearing upon arrival, afebrile with a nonfocal neurologic exam. Differential diagnosis includes primary headache, intracranial lesion, among others. I do not suspect post LP headache from intracranial hypotension given the symptom-free interval until onset of symptoms. preeclampsia is a consideration but patient has a relatively low blood pressure 149/93. Initial workup will be conducted with hematologic labs, urinalysis, noncontrasted CT scan of the head. Initial interventions include headache cocktail. Initial hematologic labs reviewed by me, no significant leukocytosis, nonactionable anemia no MAKAYLA or critical electrolyte abnormality. Urinalysis has no protein, viral swab negative. Noncontrasted CT scan informally visualized by me, no acute large intra-axial hemorrhage per CT formal read no acute intracranial abnormality. Upon repeat evaluation patient had resolving headache and nonfocal neurologic status. Given this patient is appropriate for outpatient management at this time was given return precautions verbalized understanding. Critical Care Critical Care Time Critical Care Time: No
[2024-12-23] MEDS: LACTATED RINGERS 1000ML 1,000 ML 999 ML IV (16:56)
[2024-12-23] MEDS: ACETAMINOPHEN 500MG TAB 1000 MG PO (16:56)
[2024-12-23] MEDS: diphenhydrAMINE 50MG/ML VIAL 25 MG IV (16:56)
[2024-12-23] MEDS: PROCHLORPERAZINE 10MG/2ML VIAL 5 MG IV (16:56)
[2024-12-23 17:05] LABS: Coronavirus 19, PCR Not Detected (NotDetected); Influenza A, PCR Not Detected (NotDetected); Influenza B, PCR Not Detected (NotDetected)
[2024-12-23 17:18] LABS: Basophils % 0.1 % (0.1-2.0); Hematocrit 36.9 % (37.0-47.0); Hemoglobin 11.5 g/dL (12.2-16.2); Lymphocytes # 2.3 K/mm3 (0.7-4.5); Mean Corpuscular HGB Conc 31.2 g/dL (31.8-35.4); Mean Corpuscular Volume 76.9 fl (81-99); Mean Platelet Volume 10.1 fl (7.4-10.4); Monocytes # 0.3 K/mm3 (0.1-1.0); Neutrophils # 4.4 K/mm3 (1.8-7.8); Neutrophils % 62.3 % (37.0-80.0); Platelet Count 305 K/mm3 (142-424); Red Cell Distribution Width 13.4 % (11.5-17.5); White Blood Count 7.1 K/mm3 (4.8-10.8)
[2024-12-23 17:23] LABS: Microscopic, Urine URINE MICROSCOPIC (MICROSCOPIC)
[2024-12-23 17:30] VITALS: BP 139/91; PULSE 89; O2SAT 100
[2024-12-23 17:38] LABS: Albumin Level 3.9 g/dl (3.5-5.0); Chloride 104 mmol/L (98-107); Potassium 3.6 mmoL/L (3.5-5.1); Sodium 140 mmol/L (136-145)
[2024-12-23 17:40] LABS: Appearance,Urine CLEAR (Clear); Bilirubin,Urine Negative (Negative); Blood, Urine 3+ (Negative); Color,Urine YELLOW (Yellow); Glucose,Urine (UA) Negative (Negative); Ketones,Urine Negative (Negative); Leukocyte Esterase,Urine 1+ (Negative); Nitrate,Urine Negative (Negative); Protein,Urine Negative (Negative); Specific Gravity, Urine 1.015 (1.005-1.030); Urobilinogen,Urine 0.2 EU/dl (0.2)
[2024-12-23 17:41] LABS: Alanine Aminotransferase 20 U/L (12-78); Albumin/Globulin Ratio 1.3 (1.1-1.8); Alkaline Phosphatase 99 U/L (38-126); Anion Gap 9.6 mEq/L (5-15); Aspartate Amino Transferase 30 U/L (14-36); Bilirubin,Total 0.3 mg/dl (0.2-1.3); Blood Urea Nitrogen 15 mg/dl (7-17); Carbon Dioxide 30 mmol/L (22.0-30.0); Creatinine Clearance Estimated 229 mL/min (50-200); Estimated Glomerular Filt Rate 140 ml/min (>60); GFR (African American) 170 ML/MIN (>60); Globulin 2.9 g/dL (1.3-3.2); Total Protein,Serum 6.8 g/dl (6.3-8.2)
[2024-12-23 17:42] LABS: Calcium 9.1 mg/dl (8.4-10.2); Glucose 66 mg/dl (74-100)
[2024-12-23 18:00] VITALS: BP 141/93; PULSE 85; O2SAT 100
--- NOTE | 2024-12-23 18:00 | PC.NURSE ---
rounded on pt. pt report relief in headache. [facility]. no other complaints at this time
[2024-12-23 18:03] LABS: Bacteria,Urine 1+ /lpf; WBC,Urine Occasional #/hpf (0-3)
[2024-12-23 18:44] VITALS: BP 136/86; PULSE 76; RESP 17; TEMP 36.6; O2SAT 100
== END 2024-12-23 18:46 | disposition home or self-care (01) ==
PROVIDERS: Emergency Provider Emergency Medicine
DX: R51.9 Headache, unspecified (principal); H53.149 Visual discomfort, unspecified; F17.210 Nicotine dependence, cigarettes, uncomplicated
CPT/HCPCS: 70450; 80053; 81001; 85025; 87086; 87636; 96361; 96374; 96375; 99284; J0780; J1200; J7120

== ENCOUNTER 2025-02-22 10:20 | Outpatient (CLI) | payer OTHER, SELFPAY ==
[2025-02-22 18:36] LABS: Hemoglobin 11.7 g/dL (12.2-16.2); Immature Granulocytes # 0.01 10^3uL; Immature Granulocytes % 0.2 %; Lymphocytes # 1.9 K/mm3 (0.7-4.5); Lymphocytes % 33.3 % (10-50); Mean Corpuscular HGB Conc 29.3 g/dL (31.8-35.4); Mean Platelet Volume 11.2 fl (7.4-10.4); Monocytes # 0.2 K/mm3 (0.1-1.0); Monocytes % 3.7 % (1.7-9.3); Neutrophils # 3.5 K/mm3 (1.8-7.8); Neutrophils % 62.8 % (37.0-80.0); Nucleated Red Blood Cells # 0 10^3/uL; Nucleated Red Blood Cells % 0 %; Platelet Count 282 K/mm3 (142-424); Red Blood Count 5.33 M/mm3 (4.20-5.40); Red Cell Distribution Width 15.9 % (11.5-17.5); White Blood Count 5.6 K/mm3 (4.8-10.8)
[2025-02-22 18:56] LABS: Microalbumin < 6.000 mg/L (0-16.7)
[2025-02-22 18:57] LABS: Creatinine,Urine Random 75 mg/dL (Not Estab.)
[2025-02-22 19:00] LABS: Alanine Aminotransferase 30 U/L (12-78); Albumin Level 4.2 g/dl (3.5-5.0); Albumin/Globulin Ratio 1.6 (1.1-1.8); Alkaline Phosphatase 86 U/L (38-126); Anion Gap 11.4 mEq/L (5-15); Aspartate Amino Transferase 23 U/L (14-36); Bilirubin,Total 0.3 mg/dl (0.2-1.3); Blood Urea Nitrogen 5 mg/dl (7-17); Calcium 9.1 mg/dl (8.4-10.2); Carbon Dioxide 26 mmol/L (22.0-30.0); Chloride 106 mmol/L (98-107); Chol/HDL Ratio 2.5 (1-3.5); Cholesterol 135 mg/dl (140-200); Estimated Glomerular Filt Rate 140 ml/min (>60); GFR (African American) 170 ML/MIN (>60); Globulin 2.7 g/dL (1.3-3.2); Glucose 81 mg/dl (74-100); HDL Cholesterol 55 mg/dl (40-60); Potassium 4.4 mmoL/L (3.5-5.1); Sodium 139 mmol/L (136-145); Total Protein,Serum 6.9 g/dl (6.3-8.2); Triglycerides 100 mg/dl (30-150); VLDL Cholesterol 20 mg/dL (0-40)
[2025-02-22 19:11] LABS: Direct LDL Cholesterol 51.58 mg/dL (100-129)
[2025-02-22 19:16] LABS: Hemoglobin A1C 5.4 % (4.0-6.0)
[2025-02-22 19:26] LABS: 25-OH Vitamin D, Total 36.1 ng/mL (30-100)
[2025-02-22 19:34] LABS: Thyroid Stimulating Hormone 0.61 uIU/mL (0.465-4.68)
[2025-02-22 19:53] LABS: Vitamin B12 470 pg/mL (239-931)
--- OUTSIDE RECORDS SUMMARY | 2025-02-23 13:50 | XMS_ITS | Data Portability ---
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 Plan of Treatment Reminders Order Date Submit Date Provider Last Modified By Organization Details Last Modified Time Details Appointments None recorded. Lab TSH, serum or plasma 2017 018 [facility], [address] [place] [address], [phone], 8 18:11:06 TSH, serum or plasma 2016 017 [facility], [address] [place] [address], [phone], 7 16:00:24 Referral None recorded. Procedures None recorded. Surgeries None recorded. Imaging US, neck, soft tissue - To be done after 1 year before next visit on June 20192017 018 [facility], [address] [place] [address], [phone], 9 16:39:04 US, neck, soft tissue - Follow-up ultrasoun d on June 2018 before next appointme nt in June 2018. 2016 017 [email or web address] [facility] Radiology [facility], [address] [place] [address], [phone], 11/13/201 7 14:20:20 Medication Orders Maxalt-ML T 10 mg disintegr ating tablet 2021 022 [facility], [address], [address], 17:10:54 Patient TargetsNo targets recorded. Patient Instructions Encounter Date Encounter Id Patient Instructions Last Modified By Organization Details Last Modified Time 07/19/2017 [id number] influenza (flu) vaccine: care instructions AMANDEEP Not available 07/19/2017 18:20:50 Lab work today Follow-up ultrasound after 1 year before next appointment in 2018. wayoub Not available 07/19/2017 14:58:18 07/18/2018 [id number] goiter: care instructions wayoub Not available 07/18/2018 16:07:39 wayoub Not available 2017 16:05:08 Total time spent [id number] with patient is 15 minutes with > 50 % spent on counseling on results and management plan. wayoub Not available 07/18/2018 16:05:24 07/17/2019 [id number] learning about type 2 diabetes wayoub Not available 07/17/2019 15:46:19 type 2 diabetes: care instructions wayoub Not available 07/17/2019 15:46:19 goiter: care instructions wayoub Not available 07/17/2019 15:45:19 03/19/[id number] scan images and ultrasound report reviewed by Dr Arenas 2. Discussed migraine management - Aleve, hydration, sleep 3. Recommend referral to oculoplastic surgeon 4. 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 Rx Maxalt 10mg #8 ; discussed possible medication complex 6. Follow up as needed [email or web address] Not available 03/19/2022 17:21:44 Reason for Referral None Reported. Results Created Date Observation Date Name Description Value Unit Range Abnormal Flag Note LastModifiedBy Organization Detail LastModifiedTime 07/19/20 17 07/19/2017 TSH, serum or plasm a TSH 1.660 uIU/m L 0.290- 5.500 normal Not Available [facility] [address] [place], [address], 07/19/2017 16:00:24 07/18/20 18 07/18/2018 TSH, serum or plasm a TSH 0.785 uIU/m L 0.290- 5.500 normal Not Available [facility] [address] [place], [address], 07/18/2018 18:11:06 07/15/20 17 07/15/2017 US, neck, soft tissu e [facility] [address] [place] [address], [place] [address] Patihardik rubin Name: MONTANA LOO ER Kane rubin : 989 Patihardik t Orderi ng Provid er: SALVADOR PAINTER EXAM DATE: 2016 EXAM: US ECHO THYROI D OR PAROTI D CLINIC AL INFORM ATION: Follow -up nodule TECHNI QUE: Multip le sonogr aphic images of the thyroi d gland were obtain ed. COMPAR MARY: 016 FINDIN GS: Isthmu s measur es 0.4 cm in thickn ess. Right lobe measur es 5.5 x 2 x 1.8 cm. Left lobe measur es 4.4 x 1.8 x 1.9 cm. The gland is normal in size and homoge neous in echote xture. Bilate ral thyroi d nodule s are seen. The domina nt nodule on the right isn't comple x cyst measur ing 2.6 x 1.7 x 1.7 cm. The domina nt nodule on the left is a hypoec hoic nodule measur ing 1.8 x 1.4 x 1.1 cm. No calcif icatio ns are seen. IMPRES NORM: Bilate ral thyroi d nodule s. The right lobe nodule on today' s examin ation is larger and appear s more cystic . Interp reted By: Hawa Looney MD Electr onical ly Signed By: Hawa Looney MD on 2016 4:55 PM [email or web address] [facility] Radiology [facility] [address] [place] [address], [phone], 07/16/2017 12:49:18 07/18/20 18 07/18/2018 US, neck, soft tissu e [facility] [address] [place] [address] [place] [address] Patihardik t Name: MONTANA rubin : 989 Kane rubin Orderi ng Provid er: SALVADOR PAINTER EXAM DATE: 2017 EXAM: US ECHO THYROI D OR PAROTI D CLINIC AL INFORM ATION: Goiter TECHNI QUE: Multip le sonogr aphic images of the thyroi d gland were obtain ed. COMPAR MARY: 2016 FINDIN GS: Isthmu s measur es 0.42 cm in thickn ess. Right lobe measur es 4.4 x 2 x 2.1 cm. Left lobe measur es 3.6 x 1.7 x 1.8 cm. The gland is normal in size and hetero geneou s in echote xture. Multin odular appear ing thyroi d. On the right there is a 2.4 x 2.4 x 2.1 cm nodule which is comple x and probab ly cystic . On the left there is a 1.9 x 1.5 x 1.1 cm nodule . Neithe r are highly vascul ar. IMPRES NORM: Comple x bilate ral nodule s. The larges t is on the right show slight interv al increa se from prior study Interp reted By: Markell Madsen MD Electr onical ly Signed By: Markell Madsen MD on 2017 3:37 PM [facility] [address], [phone], 07/19/2018 10:36:34 07/17/20 19 07/17/2019 US, neck, soft tissu e [facility] [address] [place] [address] [place] [address] Patihardik t Name: MONTANA rubin : 989 Kane rubin Orderi ng Provid er: SALVADOR PAINTER EXAM DATE: 2018 EXAM: US ECHO THYROI D OR PAROTI D CLINIC AL INFORM ATION: Follow -up nodule . TECHNI QUE: Multip le sonogr aphic images of the thyroi d gland were obtain ed. COMPAR MARY: 2017 FINDIN GS: Isthmu s measur es 0.36 cm in thickn ess. Right lobe measur es 5.1 x 2.3 x 1.7 cm. Left lobe measur es 4.3 x 2.3 x 2 cm. The gland is mildly enlarg ed in size and hetero geneou s in echote xture. Multip le bilate ral thyroi d nodule s are seen. The domina nt nodule on the right measur es 2.1 x 1.5 x 1.3 cm. The domina nt nodule on the left measur es 1.9 x 1.8 x 1.4 cm. IMPRES NORM: Bilate ral thyroi d nodule s. They are stable as compar ed to the previo us examin ation. Interp reted By: Hawa Looney MD Electr onical ly Signed By: Hawa Looney MD on 2018 4:33 PM [facility] [address], [phone], 07/22/2019 19:43:48 03/28/20 22 03/28/2022 CT, sinus es, w/o contr ast [address] [address] Patihardik t Name: MONTANA Hernandez MJBUSHRA EUFEMIA Patihardik t : 989 Patihardik t [facility] SUNDAY DEVLIN KERON EXAM DATE: 2021 EXAM: CT SINUS WITHOU T CONTRA ST HISTOR Y: 31-yea r-old female with headac hes and a possib le osteom a. COMPAR MARY: None. TECHNI QUE: 1.0 mm axial direct images were obtain ed, and axial, moeller l, and sagitt al recons tructi on images were genera maximilian from the source images . FINDIN GS: Maxill andria sinuse s: There is no mucosa l thicke braden in the maxill andria sinuse s. Ostia: The left and right osteom eatal units and fronta l sinus ostia are patent . Ethmoi d sinuse s: The ethmoi d sinuse s are clear. . Fronta l sinuse s: The fronta l sinuse s are clear. There is a 2-3 mm sclero tic focus along the outer table of the fronta l bone adjace nt to the right fronta l sinus. This may repres ent a small osteom a. Spheno id sinuse s: The spheno id sinuse s appear clear. Nasal septum and nasal passag es: The nasal septum is midlin e. There is minima l mucosa l hypert rophy of the nasal turbin ates. The visual ized brain parenc hyma appear s normal . The orbits are normal in appear ance. No paraph arynge al mass is identi fied. The visual ized mastoi d air cells appear normal . IMPRES NORM: 1. The parana anatsacio sinuse s are clear. There is a possib le small osteom a along the outer table of the fronta l bone adjace nt to the right fronta l sinus. Interp reted By: Zakia tripathi MD Electr onical ly Signed By: Zakia rtipathi MD on 03/28/20 22 8:19 AM [facility] [address] [place], [address], 03/30/2022 22:37:44 Result Notes None recorded. Problems Name Problem SNOMED Code Status Onset Date Resolution Date Notes Provider Name and Address Organization Details Recorded Time Lack of energy 874531208 Active 2014 From Automated Load;Provi aniket: Salvador Painter;Stat us: Active Not Available [facility] 6 10:53:43 Non-toxic multinodu lar goiter 93644506 Active 2014 From Automated Load;Provi aniket: Salvador Painter;Stat us: Active Not Available [facility] 6 10:53:43 Problem Notes None recorded. Medical Equipment None Reported. Allergies Allergen ID Allergen Name Allergen Category Reaction Reaction Severity Criticality Documentation Date Start Date Code Code System Note Provider Name and Address Organization Details Recorded Time 111521 benzoyl peroxide medicatio n rash Not available Not available 07/19/2017 1418 RxNorm Emy Mouser [facility] 7 14:37:05 364441 salicylic acid medicatio n Not available Not available Not available 03/19/2022 9525 RxNorm Radha Guerrero [facility] 2 15:43:01 Medications Name Sig Start Date Stop Date Status Note LastModified by Organization Details LastModified Time metformin 500 mg tablet Take 1 tablet every day by oral route. active Not Available Not Available No t Available venlafaxi ne 75 mg tablet Take 1 tablet every day by oral route. active Not Available Not Available No t Available Maxalt-ML T 10 mg disintegr ating tablet take one tablet as needed for migraine 2021 active Not Available Not Available Not Avai lable venlafaxi ne ER 150 mg capsule,e xtended release 24 hr Take 1 capsule every day by oral route. active Not Available Not Available No t Available Nexium 40 mg capsule,d elayed release Daily 07/19 completed Duration : 30 days;Tr quency: daily;Me dication Descript ion: esomepra zole; Dosage:1 ; Route:or al; refills: 0; Quantity :30 enteric coated capsule Not Available Not Available Not Available spironola ctone 25 mg tablet Daily 07/19 completed Frequenc y: daily;Me dication Descript ion: spironol actone; Dosage:1 ; Route:or al; refills: 5; Quantity :30 tablet Not Available Not Available Not Available gemfibroz il 600 mg tablet Take 1 tablet twice a day by oral route. active Not Available Not Available No t Available Zoloft 100 mg tablet Daily 07/18 completed Duration : 30 days;Tr quency: daily;Me dication Descript ion: sertrali ne; Dosage:2 ; Route:or al; refills: 5; Quantity :30 tablet Not Available Not Available Not Available risperido ne 1 mg tablet Two times a day active Frequenc y: bid;Medi cation Descript ion: risperid one; Dosage:1 ; Route:or al; refills: 0 Not Available Not Available Not Available Vitamin B-12 1,000 mcg tablet Take 1 tablet every day by oral route. 07/18 completed Not Available Not Available Not Available TriNessa (28) 0.18 mg(7)/0.2 15 mg(7)/0.2 5 mg(7)-35 mcg tablet Take 1 tablet every day by oral route. active Not Available Not Available No t Available Vitamin D3 2,000 ui daily active Medicati on Descript ion: cholecal ciferol; Route:or al; refills: 0 Not Available Not Available Not Available aripipraz ole 5MG active Not Available Not Available Not Available Myorisan 40 mg capsule 40 mg one day alternat ing with 80 mg the next active Not Available Not Available No t Available Fluzone Quad 2016-(P F) 60 mcg(15 mcgx4)/0. 5 mL intramusc ular syringe INJECT 0.5 MILLILIT ER (60 MCG) BY INTRAMUS CULAR ROUTE ONCE 07/18 completed Not Available Not Available Not Available Vitals Date Recorded Body weight Body temperature Heart rate Oxygen saturation Oxygen saturation in Arterial blood by Pulse oximetry Systolic blood pressure Diastolic blood pressure Provider Name and Address Organization Details Last Updated DateTime 2 858380. 98 g 97 [degF] 99 /min 99 % 99 % 133 mm[Hg] 84 mm[Hg] KalebJuli Krausley [facility] 2 15:45:58 Date Recorded Body height Body mass index (BMI) Body weight Heart rate Systolic blood pressure Diastolic blood pressure Provider Name and Address Organization Details Last Updated DateTime 9 157.48 cm 44.6 kg/m2 271165. 54 g 98 /min 128 mm[Hg] 78 mm[Hg] [facility] 9 15:28:05 Date Recorded Body height Body mass index (BMI) Body weight Heart rate Systolic blood pressure Diastolic blood pressure Provider Name and Address Organization Details Last Updated DateTime 8 157.48 cm 48.3 kg/m2 807420. 39 g 103 /min 118 mm[Hg] 68 mm[Hg] [facility] 8 15:37:15 Date Recorded Body height Body mass index (BMI) Body weight Heart rate Systolic blood pressure Diastolic blood pressure Provider Name and Address Organization Details Last Updated DateTime 7 157.48 cm 48.3 kg/m2 025126. 39 g 118 /min 122 mm[Hg] 76 mm[Hg] Emy Ryan [facility] 7 14:36:39 Social History Question Answer Notes LastModified by Organizat ion Details LastModified Time Tobacco Smoking Status Former Smoker Emy silva, [facility] 07/19/2017 14:39:14 What Was The Date Of Your Most Recent Tobacco Screening? 07/18/2018 Information n ot available 11/10/2019 Sex: Unknown Functional Status None recorded. Mental Status None recorded. Family History Relationship Description Onset Age of this Age Resolved Age Notes LastModified by Organization Details LastModified Time Sister Disorder of thyroid gland [email or web address] Not available 03/19 15:43:38 Medical History Condition Response Anxiety Disorder Y Diabetes Y Depression Y Gynecological HistoryNo gynecological history recorded. Obstetrics History GPAL:G 0 P 0 0 0 0 Immunizations Vaccine Type Date Status Note Provider Nam e and Address Organization Details Recorded Time Influenza, split virus, quadrivalent, PF 07/19/2017 completed Not Available [facility] 0 02:50:37 Past Encounters Encounter ID Performer Location Encounter Start Date Encounter Closed Date Diagnosis/Indication Diagnosis SNOMED-CT Code Diagnosis ICD10 Code Diagnosis Note [id number] SALVADOR PAINTER MD [facility] [address] [place] [address] 07/19/2017 14:16:36 07/19/2017 15:54:41 Administration of influenza vaccine [id number] Z23 Flu vaccinatio n provided in the office today. Multinodular goiter 2375 93851 E04.2 Follow-up ultrasound on 07/15/2017 showed right Mixed solid cystic nodule measures 2 x 1.3 x 1.1 cm. and left Mixed Solid cystic measures 1.4 x 1.3 x 0.9 cm. Ultrasound -guided fine-needl e aspiration from both nodules reported to be consistent with a benign nodule in 2015. Reviewing ultrasound images I don't see any new suspicious features and the mention increase in the right thyroid nodule is primarily due to increased cystic component. Provided with a copy of her recent thyroid ultrasound with results reviewed and discussed with patient. Check TSH today. Continue to monitor thyroid nodularity by a repeat ultrasound after 1 year. [id number] SALVADOR PAINTER MD [facility] [address] [place] [address] 07/18/2018 14:35:59 07/21/2018 08:32:06 Non-toxic multinodular goiter 67972554 E04.2 28-year-ol d -Am er[place] female patient with a past medical history as detailed in the problem is significan t for obesity, type 2 diabetes on metformin therapy and bilateral thyroid nodules seen in the office today for a 1 year follow-up thyroid nodularity . Follow-up thyroid ultrasound today showed bilateral thyroid nodules On the right there is a 2.4 x 2.4 x 2.1 cm nodule which is complex and probably cystic. On the left there is a 1.9 x 1.5 x 1.1 cm nodule. Neither are highly vascular. Follow-up ultrasound on 07/15/2017 showed right Mixed solid cystic nodule measures 2 x 1.3 x 1.1 cm. and left Mixed Solid cystic measures 1.4 x 1.3 x 0.9 cm. Ultrasound -guided fine-needl e aspiration from both nodules reported to be consistent with a benign nodule in 2014. Reviewing ultrasound images I don't see any new suspicious features and the mention increase in the right thyroid nodule is primarily due to increased cystic component. Recommenda tions: 1. Continue to monitor thyroid nodularity by a repeat ultrasound before next visit after 1 year 2. Check TSH today 3. 1 year follow-up visit Patient verbalized understand ing and agreed with the above mentioned plan of care. [id number] SALVADOR PAINTER MD [facility] [address] [place] [address] 07/17/2019 14:49:16 07/17/2019 15:56:40 Non-toxic multinodular goiter 52556638 E04.2 29 year-old -Am erican female patient with a past medical history as detailed in the problem is significan t for obesity, type 2 diabetes on metformin therapy and bilateral thyroid nodules seen in the office today for a 1 year follow-up thyroid nodularity . Thyroid ultrasound today at radiology department done and upon preliminar y reviewing imaging there has been no change in the size or imaging characteri stics of the above-ment ioned thyroid nodules. Ultrasound -guided fine-needl e aspiration from both nodules reported to be consistent with a benign nodule in 2014. I recommend no further testing or interventi on from thyroid nodules standpoint and to resume her routine care with her primary care provider for necessary physical exam and laboratory workup and see us an as-needed basis. Patient verbalized understand ing and agreed with the above mentioned plan of care. Type 2 aster betes mellitus without complication 642798836 E11.9 Continue current metformin therapy Defer further management to patient primary care. 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 Bipolar disorder 4473162 4 F31.9 New diagnosis and medication s Health Concerns Section Related Observation LastModified by Organization Detai ls LastModified Time None Recorded Concern Status LastModified by Organization Details LastModified Time None Recorded Advance Directives Directive None Recorded Payers Insurance Date Sequence Insurance Name Policy Number Policy Ty Covered Member ID Ty Member ID Guarantor Name 03/29/2022 1 [place] [employer] PROGRAM [id number] Kaity Norwood [id number] Kaity Norwood 03/19/2022 1 [employer] S[employer]ATURE [employer]AT[employer] - GEHA - DOS ON OR BEFORE 09/22/2023 - GEPANCHO (PPO) Kaity Norwood [id number] Kaity Norwood Notes Date Note Type Note Provider Name and Address Organization Details Recorded Time 07/18/2018 text/html 28-year-old -[place] female patient with a past medical history as detailed in the problem is significant for obesity, recently diagnosed type 2 diabetes on metformin therapy and bilateral thyroid nodule seen in the office today for a 1 year follow-up visit thyroid nodularity. Follow-up thyroid ultrasound today showed bilateral thyroid nodules On the right there is a 2.4 x 2.4 x 2.1 cm nodule which is complex and probably cystic. On the left there is a 1.9 x 1.5 x 1.1 cm nodule. Neither are highly vascular. Ultrasound-guided fine-needle aspiration from both nodules reported to be consistent with a benign nodule in 2014. Interval history: Recent diagnosis type 2 diabetes and is started on low-dose metformin therapy Had thyroid ultrasound done today She denies any choking , difficult to breathing or difficulty swallowing Denies any palpitations, shaking, excessive sweating or weight loss SALVADOR PAINTER MD [address] [place] [address], [phone], [facility] 07/18/2018 16:08:44 07/17/2019 text/html 29-year-old -[place] female patient with a past medical history as detailed in the problem is significant for obesity, type 2 diabetes on metformin therapy and bilateral thyroid nodule seen in the office today for a 1 year follow-up visit thyroid nodularity. Follow-up thyroid ultrasound today showed bilateral thyroid nodules On the right there is a 2.4 x 2.4 x 2.1 cm nodule which is complex and probably cystic. On the left there is a 1.9 x 1.5 x 1.1 cm nodule. Neither are highly vascular. Ultrasound-guided fine-needle aspiration from both nodules reported to be consistent with a benign nodule in 2015. Stable ultrasound in 2018 Interval history: Recent diagnosis type 2 diabetes and is started on low-dose metformin therapy Had thyroid ultrasound done today She denies any choking , difficult to breathing or difficulty swallowing Denies any palpitations, shaking, excessive sweating or weight loss SALVADOR PAINTER MD [address] [place] [address], [phone], [facility] 07/17/2019 15:46:29 03/19/2022 text/html Kaity is a 31 year old female here today for an evaluation of possible neoplasm right orbit, referred by Arsalan Mueller MD. She reports that she feels a lump in the corner of her right eye that she denies having previously noticed. She denies double vision or balance issues. Her ultrasound soft tissue head 02/26/22 showed a hypoechoic nodule medial to the right orbit, complex cyst versus neoplasm. She has been having headaches for two months in the frontal sinus area. She will take Aleve if her headache does not improve with a nap. She gets motion sickness and is sensitive to some fragrances as well. She is a type 2 diabetic and is taking metformin. BARTOLOME ARENAS MD [address] [place] [address], [phone], [facility] 03/19/2022 17:24:44 OBGyn Episode No OBEpisode recorded.
== END 2025-02-22 23:59 | disposition home or self-care (01) ==
LOC: LAB.DROPOF 02-23 13:47
PROVIDERS: PCP Nurse Practitioner; Visit Provider Nurse Practitioner
DX: E55.9 Vitamin D deficiency, unspecified (principal); E11.9 Type 2 diabetes mellitus without complications; E53.8 Deficiency of other specified B group vitamins; E66.9 Obesity, unspecified; E78.5 Hyperlipidemia, unspecified
CPT/HCPCS: 80053; 80061; 82043; 82306; 82570; 82607; 83036; 84443; 85025

== ENCOUNTER 2025-04-20 19:20 | Emergency (ER) | payer OTHER, SELFPAY ==
[2025-04-20] VITALS (7 sets, daily range): BP systolic 96–113; BP diastolic 48–70; PULSE 65–86; RESP 16–20; TEMP 36.8; O2SAT 96–100; BMI 34.2
--- OUTSIDE RECORDS SUMMARY | 2025-04-20 20:12 | XMS_ITS | Encounter Summary ---
Author Organization [place] [address] Care Team Providers Care Briquette Machine Operator Name Role Phone Mary Powers Primary Care Provider [phone] Encounter Details Date Type Department Care Team (Late st Contact Info) Description 05/13/2019 Lab Requisition [facility] [place] [address] Adela Villalba, [facility] [address] [facility] [place] [address] Acne vulgaris; Other snf (current) drug therapy Social History Tobacco Use Types Packs/Day Years Used Date Smoking Tobacco: Never Assessed Comments Unknown Sex and Gender Information Value Date Recorded Sex Assigned at Not on file Legal Sex Female 4:54 PM EDT Gender Identity Not on file Sexual Orientation Not on file documented as of this encounter Plan of Treatment Not on file documented as of this encounter Procedures Procedure Name Priority Date/Time Associated Diagnosis Comments HUMAN CHORIONIC GONADOTROPIN QUANTITATIVE Routine 05/13/2019 3:30 PM EDT Acne vulgaris Other terminal worker (current) drug therapy TRIGLYCERIDES Routine 05/13/2019 3:30 PM EDT Acne vulgaris Other terminal worker (current) drug therapy CHOLESTEROL TOTAL Routine 05/13/2019 3:3 0 PM EDT Acne vulgaris Other snf (current) drug therapy HEPATIC FUNCTION PANEL Routine 08/21/201 9 3:30 PM EDT Acne vulgaris Other snf (current) drug therapy documented in this encounter Results * HEPATIC FUNCTION PANEL (05/13/2019 3:30 PM EDT) Total Protein 6.9 6.4 - 8.3 gm/dL 05/13/2019 8:07 PM EDT [facility] Albumin 4.1 3.5 - 5.2 gm/dL 05/13/2019 8:07 PM EDT [facility] Bili Direct <0.2 0.0 - 0.3 mg/dL 05/13/2019 8:07 PM EDT [facility] Bili Total 0.1 0.1 - 1.3 mg/dL 05/13/2019 8:07 PM EDT [facility] AST 21 <=40 IU/L 05/13/2019 8:07 PM EDT [facility] ALT 15 <=41 IU/L 05/13/2019 8:07 PM EDT [facility] Alk Phos 79 36 - 123 IU/L 05/13/2019 8:07 PM EDT [facility] Blood VENOUS BLOOD / Unknown 05/13/2019 3:30 PM EDT 05/13/2019 6:49 PM EDT [facility] CHEMISTRY ORDERABLES Fi nal Result [facility], [facility] , [place] [address] * (ABNORMAL) TRIGLYCERIDES (05/13/2019 3:30 PM EDT) Triglyceride 387(H) <=150 mg/dL 05/13/2019 8:07 PM EDT [facility] Comment: < 150 Normal 150 - 199 Borderline High 200 - 499 High >= 500 Very High Blood VENOUS BLOOD / Unknown 05/13/2019 3:30 PM EDT 05/13/2019 6:49 PM EDT [facility] ANIMAL GENETICIST CHEMISTRY ORDERABLES Fi nal Result Performing Organization Address City/[facility] Co de Phone Number [employer] [facility] [address] [facility] , [place] [address] * HUMAN CHORIONIC GONADOTROPIN QUANTITATIVE (05/13/2019 3:30 PM EDT) Hcg Quant <1 mIU/mL 05/13/2019 8:[address] [facility] Blood VENOUS BLOOD / Unknown 05/13/2019 3:30 PM EDT 05/13/2019 6:[address] [facility] [employer] - 05/13/2019 8:11 PM EDT < 5 mIU/mL Negative 5-25 mIU/mL Indeterminate > 25 mIU/mL Positive Values between 5 and 25 mIU/mL are indeterminate for . Consider confirming with repeat test in 48-72 hours. Values in should double every 3 days for the first 6 weeks. Ingestion of sylvie doses of biotin (>5 mg/day) taken within 8 hours of drawing blood sample can interfere with this immunoassay test. Adela Villalba ANIMAL GENETICIST CHEMISTRY ORDERABLES Fi nal Result Performing Organization Address [facility] Co de Phone Number [facility] [employer] [facility] [address] [facility] , [place] [address] * CHOLESTEROL TOTAL (05/13/2019 3:30 PM EDT) Cholesterol 118 <=200 mg/dL 05/13/2019 8:07 PM EDT [facility] Comment: < 200 Desirable 200 - 239 Borderline High >= 240 High Blood VENOUS BLOOD / Unknown 05/13/2019 3:30 PM EDT 05/13/2019 6:49 PM EDT Adela Morton [place] ANIMAL GENETICIST CHEMISTRY ORDERABLES Fi nal Result Performing Organization Address [facility] Co de Phone Number [facility] [address] [facility] , [place] [address] documented in this encounter Visit Diagnoses Diagnosis Acne vulgaris Other acne Other terminal worker (current) drug therapy documented in this encounter Care Teams Briquette Machine Operator Relationship Specialty Start Date End Date Mary Powers [address] [facility] [address] [place] [address] PCP - General Family Medicine 06/23/18 documented as of this encounter
--- OUTSIDE RECORDS SUMMARY | 2025-04-20 20:12 | XMS_ITS | Clinical Summary ---
[facility] Organization [facility] Address [address] [place] [address] Care Team Providers Care Pharmacy Clinical Coordinator Name Role Phone Provider, No Known Primary Care Provider Unavail able Allergies Active Allergy Reactions Criticality Noted Date Comments Aspirin Rash Low 07/06/2024 SALICYLIC ACID Benzoyl Peroxide Rash Low 10/18/2023 Medications ARIPiprazole (ABILIFY) 10 MG tablet Take 1 tablet by mouth every night at bedtime. 06/14/20 24 Active rizatriptan ENGINE SETTER (MAXALT-ENGINE SETTER) [address] 1 tablet on the tongue 1 (One) Time As Needed. Active venlafaxine XR (EFFEXOR-XR) 150 MG 24 hr capsule Take 1 capsule by mouth Daily. Active venlafaxine XR (EFFEXOR-XR) 75 MG 24 hr capsule Take 1 capsule by mouth Daily. 07/05/20 24 Active folic acid (FOLVITE) 400 MCG tablet Take 1 tablet by mouth Daily. Active Insulin Pen Needle (Pen Tieton) 31G X 5 MM miscIndications:Ty pe 2 diabetes mellitus in , third trimester Use 1 each 4 (Four) Times a Day. 100 each 2 10/12/19 25 Active Continuous Glucose Sensor (Dexcom G7 Sensor) miscIndications:Ty pe 2 diabetes mellitus in , third trimester Use 1 each Every 10 (Ten) Days. 3 each 11 10/12/19 25 Active Insulin Aspart (novoLOG) 100 UNIT/ML injectionIndicatio ns:Type 2 diabetes mellitus in , third trimester Inject 5 Units under the skin into the appropriate area as directed 3 (Three) Times a Day Before Meals. 15 mL 12 12/18/19 25 Active Active Problems Problem Noted Date Diagnosed Date premature rupture of membranes (PPROM) with onset of labor after 24 hours of rupture in third trimester, antepartum 12/12/2024 Advanced maternal age, primigravida, antepartum 07/09/2024 Assessment & Plan (09/07/2024 9:06 AM EST): Negative NIPT per patient. Anatomy survey appears normal today, a few additional views are needed to complete. - Follow-up scheduled in 4wks Assessment & Plan (07/09/2024 10:42 AM EDT): Pt has not yet done genetic screening. She is planning on doing at the next appointment with her provider. Type 2 diabetes mellitus in , third tri [facility] 07/09/2024 Assessment & Plan (11/02/2024 8:19 AM EST): Patient presents for follow-up ultrasound secondary to diabetes in . Patient currently on 5 units of short acting insulin with meals. Today's ultrasound shows normal growth with normal amniotic fluid. Plan for follow-up in 4 weeks. Assessment & Plan (09/07/2024 9:05 AM EST): For testing for GDM between 24-28wks, I recommend patient do FSBS's for a week, fasting and 2-hr post-prandial, rather than doing either a glucola or HgbA1c. Patient is amenable to this. Assessment & Plan (07/09/2024 10:01 AM EDT): Patient with history of Type 2 DM that was resolved with bariatric surgery. Reviewed the mechanism by which can sometimes cause a relative carbohydrate intolerance in patients without diabetes and that she is at increased risk of this secondary to her history. We talked about the goals for blood glucose in , including fasting blood sugars < 90-95mg/dl and 2-hr post-prandial values < 110-120mg/dl. Pts baseline HgbA1c early in first trimester was normal at 5.0. - Recommend patient start a daily ASA 81mgs at 12wks - Will be happy to follow patient more closely should she develop GDM/reemergence of her Type 2 DM - Follow-up scheduled at 20wks - History of bariatric surgery 07/09/2024 Assessment & Plan (09/07/2024 9:07 AM EST): Patient is s/p bariatric surgery in 04/2023. She is able to tolerate foods fairly well. Reviewed the importance of eating protein, whole vegetables and fruit, and complex carbohydrates in . She should not do a traditional glucola as this could cause severe GI distress and dumping. Recommend instead that she do FSBS's for one week. Assessment & Plan (07/09/2024 9:32 AM EDT): Patient is s/p bariatric surgery in 04/2023. She is able to tolerate foods fairly well. Reviewed the importance of eating protein, whole vegetables and fruit, and complex carbohydrates in . Uterine fibroid during , antepartum Assessment & Plan (09/07/2024 9:07 AM EST): Briefly discussed possibility of fibroid degeneration in mid second trimester with patient. Assessment & Plan (07/09/2024 10:41 AM EDT): Briefly discussed possibility of fibroid degeneration in mid second trimester with patient. Teratogen exposure in current 07/09/20 Assessment & Plan (07/09/2024 9:23 AM EDT): I discussed with the patient the fact that the risks of psychotropic medication use in must always be weighed against the risks of maternal disease exacerbation should the patient discontinue their medication. No known congenital abnormalities or neurodevelopmental issues are known with either of these medications. With SSRI's, there is always a risk of withdrawal after delivery, but this is mitigated by . Social History Tobacco Use Types Packs/Day Years Used Date Smoking Tobacco: Former Cigarettes S tarted: 2020 Smokeless Tobacco: Never Tobacco Cessation:Counseling Given: Not Answered Alcohol Use Standard Drinks/Week Comments Not Currently 0 (1 standard drink = 0.6 oz pur e alcohol) [facility] Utilities Answer Date Recorded In the past 12 months has th e electric, gas, oil, or water company threatened to shut off services in your home? No 12/12/2024 AUDIT-C Answer Date Recorded Q1: How often do you have a drink containing alcohol? Never 12/12/2024 Q2: How many drinks containi ng alcohol do you have on a typical day when you are drinking? Patient does not drink Q3: How often do you have si x or more drinks on one occasion? Never 12/12/2024 Overall Financial Resource Strain (CARDIA) Answe r Date Recorded How hard is it for you to pa y for the very basics like food, housing, medical care, and heating? Not hard at all 12/12/2024 [facility] - Occupational Stress Questionnaire Answer Date Recorded Do you feel stress - tense, restless, nervous, or anxious, or unable to sleep at night because your mind is troubled all the time - these days? Only a little 12/12/2024 Exercise Vital Sign Answer Date Recorde d On average, how many days pe r week do you engage in moderate to strenuous exercise (like a brisk walk)? 3 days 12/12/2024 On average, how many minutes do you engage in exercise at this level? 30 min 12/12/2024 Hunger Vital Sign Answer Date Recorded Within the past 12 months, y ou worried that your food would run out before you got the money to buy more. Never true 12/13/19 25 Within the past 12 months, t he food you bought just didn't last and you didn't have money to get more. Never true 12/12/2024 PRAPARE - Transportation Answer Date Re corded In the past 12 months, has l ack of transportation kept you from medical appointments or from getting medications? No 11/22 In the past 12 months, has l ack of transportation kept you from meetings, work, or from getting things needed for daily living? No 12/12/2024 [place] Depression Scale Answer Date Recorded [place] Depression Scale Total 0 12/24/2024 The thought of harming myself has occurred to me . Never 12/24/2024 Abuse Screen Answer Date Recorded Feels Unsafe at Home or Work/School no 12/12/2024 Feels Threatened by Someone no 11/22 Does Anyone Try to Keep You From Having Contact with Others or Doing Things Outside Your Home? no 12/12/2024 Physical Signs of Abuse Present no 12/12/2024 Housing Stability Answer Date Recorded Current Living Arrangements home 11/22 Potentially Unsafe Housing Conditions none 12/12/2024 Family and Community Support Answer Anton e Recorded If for any reason you need h elp with day-to-day activities such as bathing, preparing meals, shopping, managing finances, etc., do you get the help you need? I don't need any help 12/12/2024 How often do you feel lonely or isolated from those around you? Never 12/12/2024 Employment Answer Date Recorded Do you want help finding or keeping work or a job? I do not need or want help 12/12/2024 Disabilities Answer Date Recorded Difficulty Concentrating, Remembering or Making Decisions no 12/12/2024 Difficulty Managing Errands Independently no 12/12/2024 Education Answer Date Recorded Do you want help with school or training? For example, starting or completing job training or getting a high school diploma, GED or equivalent No 12/12/2024 Preferred Language Malaysian 12/12/2024 PHQ-2 Answer Date Recorded Patient Health Questionnaire-2 Score 1 12/12/2024 Comments No Sex and Gender Information Value Date Recorded Sex Assigned at Not on file Legal Sex Female 9:38 AM EDT Gender Identity Not on file Sexual Orientation Not on file Last Filed Vital Signs Vital Sign Reading Time Taken Comments Blood Pressure 128/85 12/15/2024 7:00 AM EDT Pulse 83 12/15/2024 7:00 AM EDT Temperature 36.7 C (98 F) 12/15/2024 7:00 AM EDT Respiratory Rate 16 12/15/2024 7:00 AM EDT Oxygen Saturation 97% 12/15/2024 7:00 AM EDT Inhaled Oxygen Concentration - - Weight 92.1 kg (203 lb) 12/12/2024 12:57 PM EDT Height 157.5 cm (5' 2 ) 12/12/2024 12:57 PM EDT Body Mass Index 37.13 12/12/2024 12:57 PM EDT Plan of Treatment Health Maintenance Due Date Last Done Comments Annual Gynecologic Pelvic an d Breast Exam 1989 DIABETIC EYE EXAM 1999 DIABETIC FOOT EXAM 1999 URINE MICROALBUMIN-CREATININ E RATIO (uACR) 1999 Hepatitis B (1 of 3 - 19+ 3- dose series) 2008 PAP SMEAR 2010 COVID-19 Vaccine (5 - 2023-2 5 season) 2024 08/07/2022, 08/07/2021, 12/28/2020, Additional history exists ANNUAL PHYSICAL 06/15/2024 HEMOGLOBIN A1C 10/30/2024 04/29/2024, 08/0 03/2024, 06/05/2023 INFLUENZA VACCINE 06/23/2025 08/07/2022, , 07/19/2017 TDAP/TD VACCINES (2 - Td or Tdap) 11/16/2034 025 Pneumococcal Vaccine 0-49 Completed 04/18/2022 HEPATITIS C SCREENING Completed 06/10/2024 Procedures Procedure Name Priority Date/Time Associated Diagnosis Comments HEPATITIS C ANTIBODY Routine 06/10/2024 from Last 3 Months or Most Recently Relevant to Health Maintenance Results * Hepatitis C Antibody (06/10/2024) External Hepatitis C Ab non-reacti ve Blood [facility] Provider LAB BLOOD ORDERABLES Joan l Result from Last 3 Months or Most Recently Relevant to Health Maintenance Insurance [employer] FLOOD [id number] Advance Directives Documents on File Type Date Recorded Patient Claims Attorney Expl anation LIVING WILL - SCAN 11/02/2024 7:50 AM alejandra lima will scan 11-02-24 * CPR (Attempt to Resuscitate) (Latest Code Status on File) Date Activated Date Inactivated Comments 12/13/2024 1:48 PM 12/15/2024 4:27 PM Question Answer Comments Code Status (Patient has no pulse and is not breathing): CPR (Attempt to Resuscitate) Medical Interventions (Patie nt has pulse or is breathing): Full * CPR (Attempt to Resuscitate) Date Activated Date Inactivated Comments 12/12/2024 12:55 PM 12/13/2024 1:48 PM Question Answer Comments Code Status (Patient has no pulse and is not breathing): CPR (Attempt to Resuscitate) Medical Interventions (Patie nt has pulse or is breathing): Full Support Level Of Support Discussed With: Patient Care Teams Pharmacy Clinical Coordinator Relationship Specialty Start Date End Date Provider, [place] [address] PCP - General 06/15/24
--- OUTSIDE RECORDS SUMMARY | 2025-04-20 20:12 | XMS_ITS | Encounter Summary ---
Author Organization [facility] [place] [address] Care Team Providers Care Airconditioning Engineer Name Role Phone Mary Powers Primary Care Provider [phone] Encounter Details Date Type Department Care Team (Late st Contact Info) Description 03/09/2019 Lab Requisition [facility] LAB[facility]AT[facility] [address] Adela Villalba, [facility] [address] [facility] [place] [address] Acne vulgaris; Other custodial (current) drug therapy Social History Tobacco Use [...] Diagnosis Comments HUMAN CHORIONIC GONADOTROPIN QUANTITATIVE Routine 03/09/2019 3:39 PM EDT Acne vulgaris Other bed bug exterminator (current) drug therapy TRIGLYCERIDES Routine 03/09/2019 3:39 PM EDT Acne vulgaris Other bed bug exterminator (current) drug therapy CHOLESTEROL TOTAL Routine 03/09/2019 3:3 9 PM EDT Acne vulgaris Other custodial (current) drug therapy HEPATIC FUNCTION PANEL Routine 06/17/201 9 3:39 PM EDT Acne vulgaris Other custodial (current) drug therapy documented in this encounter Results * HEPATIC FUNCTION PANEL (03/09/2019 3:39 PM EDT) Total Protein 6.6 6.4 - 8.3 gm/dL 03/09/2019 8:29 PM EDT [facility] Albumin 4.4 3.5 - 5.2 gm/dL 03/09/2019 8:29 PM EDT [facility] Bili Direct <0.2 0.0 - 0.3 mg/dL 03/09/2019 8:29 PM EDT [facility] Bili Total 0.1 0.1 - 1.3 mg/dL 03/09/2019 8:29 PM EDT [facility] AST 14 <=40 IU/L 03/09/2019 8:29 PM EDT [facility] ALT 21 <=41 IU/L 03/09/2019 8:29 PM EDT [facility] Alk Phos 83 36 - 123 IU/L 03/09/2019 8:29 PM EDT [facility] Blood VENOUS BLOOD / Unknown 03/09/2019 3:39 PM EDT 03/09/2019 6:39 PM EDT [employer] [facility] CHEMISTRY ORDERABLES Fi nal Result [facility], [facility] [address] [facility] , [place] [address] * (ABNORMAL) TRIGLYCERIDES (03/09/2019 3:39 PM EDT) Triglyceride 355(H) <=150 mg/dL 03/09/2019 8:29 PM EDT [facility] Comment: < 150 Normal 150 - 199 Borderline High 200 - 499 High >= 500 Very High Blood VENOUS BLOOD / Unknown 03/09/2019 3:39 PM EDT 03/09/2019 6:39 PM EDT [employer] [facility] GROOVER OPERATOR CHEMISTRY ORDERABLES Fi nal Result Performing Organization Address City/[facility] Co de Phone Number [facility] [address] [facility] , [place] [address] * HUMAN CHORIONIC GONADOTROPIN QUANTITATIVE (03/09/2019 3:39 PM EDT) Hcg Quant <1 mIU/mL 03/09/2019 8:1 1 PM EDT [facility] [facility] Blood VENOUS BLOOD / Unknown 03/09/2019 3:39 PM EDT 03/09/2019 6:39 PM EDT Narrative [facility] - 03/09/2019 8:11 PM EDT < 5 mIU/mL Negative [...] interfere with this immunoassay test. Adela Villalba GROOVER OPERATOR CHEMISTRY ORDERABLES Fi nal Result Performing Organization Address [facility] Co de Phone Number [facility] [facility] [address] [facility] , [place] [address] * CHOLESTEROL TOTAL (03/09/2019 3:39 PM EDT) Cholesterol 146 <=200 mg/dL 03/09/2019 8:29 PM EDT [facility] Comment: < 200 Desirable 200 - 239 Borderline High >= 240 High Blood VENOUS BLOOD / Unknown 03/09/2019 3:39 PM EDT 03/09/2019 6:39 PM EDT Adela Morton F[place]on GROOVER OPERATOR CHEMISTRY ORDERABLES Fi nal Result Performing Organization Address [facility] Co de Phone Number [employer] [facility] [address] [facility] , [address] [address] documented in this encounter Visit Diagnoses Diagnosis Acne vulgaris Other acne Other bed bug exterminator (current) drug therapy documented in this encounter Care Teams Airconditioning Engineer Relationship Specialty Start Date End Date Mary Powers [address] [facility] [address] [place] [address] PCP - General Family Medicine 06/23/18 documented as of this encounter
--- OUTSIDE RECORDS SUMMARY | 2025-04-20 20:12 | XMS_ITS | Clinical Summary ---
Author Organization [facility] Address [address] [place] [id number] Phone Care Team Providers Care Cut Out And Marking Machine Operator Name Role Phone Mary Powers Primary Care Provider [phone] Social History Tobacco Use Types Packs/Day Years Used Date Smoking Tobacco: Never Assessed Comments Unknown Sex and Gender Information Value Date Recorded Sex Assigned at Not on file Legal Sex Female 4:54 PM EDT Gender Identity Not on file Sexual Orientation Not on file Plan of Treatment Health Maintenance Due Date Last Done Comments Annual Wellness Exam 1992 DTaP/TDaP/Td (1 - Tdap) 2008 Hepatitis B Vaccine (1 of 3 - 19+ 3-dose series) 2008 COVID-19 Vaccine (2023-2 5 season) 2024 Influenza Vaccine (#1) 2025 Meningococcal B Vaccine Aged Out No l onger eligible based on patient's age to complete this topic Pneumococcal Vaccine 0-49 Aged Out No longer eligible based on patient's age to complete this topic Care Teams Cut Out And Marking Machine Operator Relationship Specialty Start Date End Date Mary Powers [address] [facility] [address] [place] [address] PCP - General Family Medicine 06/23/18
--- OUTSIDE RECORDS SUMMARY | 2025-04-20 20:12 | XMS_ITS | Encounter Summary ---
Author Organization [facility] [place] [address] Care Team Providers Care Sugar Refiner Name Role Phone Mary Powers Primary Care Provider [phone] Encounter Details Date Type Department Care Team (Late st Contact Info) Description 04/09/2019 Lab Requisition [facility] [place] [address] Adela Villalba, [facility] [address] [facility] [place] [address] Acne vulgaris; Other skilled nursing (current) drug therapy Social History Tobacco Use [...] Diagnosis Comments HUMAN CHORIONIC GONADOTROPIN QUANTITATIVE Routine 04/09/2019 4:00 PM EDT Acne vulgaris Other intermediate card tender (current) drug therapy TRIGLYCERIDES Routine 04/09/2019 4:00 PM EDT Acne vulgaris Other intermediate card tender (current) drug therapy CHOLESTEROL TOTAL Routine 04/09/2019 4:0 0 PM EDT Acne vulgaris Other skilled nursing (current) drug therapy HEPATIC FUNCTION PANEL Routine 07/18/201 9 4:00 PM EDT Acne vulgaris Other skilled nursing (current) drug therapy documented in this encounter Results * HEPATIC FUNCTION PANEL (04/09/2019 4:00 PM EDT) Total Protein 6.7 6.4 - 8.3 gm/dL 04/09/2019 9:07 PM EDT [facility] Albumin 4.3 3.5 - 5.2 gm/dL 04/09/2019 9:07 PM EDT [facility] Bili Direct <0.2 0.0 - 0.3 mg/dL 04/09/2019 9:07 PM EDT [facility] Bili Total 0.1 0.1 - 1.3 mg/dL 04/09/2019 9:07 PM EDT [facility] AST 15 <=40 IU/L 04/09/2019 9:07 PM EDT [facility] ALT 18 <=41 IU/L 04/09/2019 9:07 PM EDT [facility] Alk Phos 84 36 - 123 IU/L 04/09/2019 9:07 PM EDT [facility] Blood VENOUS BLOOD / Unknown 04/09/2019 4:00 PM EDT 04/09/2019 7:28 PM EDT [facility] CHEMISTRY ORDERABLES Fi nal Result [facility], [facility] [address] [facility] , [place] [address] * (ABNORMAL) TRIGLYCERIDES (04/09/2019 4:00 PM EDT) Triglyceride 329(H) <=150 mg/dL 04/09/2019 9:07 PM EDT [facility] Comment: < 150 Normal 150 - 199 Borderline High 200 - 499 High >= 500 Very High Blood VENOUS BLOOD / Unknown 04/09/2019 4:00 PM EDT 04/09/2019 7:28 PM EDT [facility] [address] [facility] CHEMISTRY ORDERABLES Fi nal Result Performing Organization Address City/[facility] Co de Phone Number [employer] [address] [facility] [address] , [place] [address] * HUMAN CHORIONIC GONADOTROPIN QUANTITATIVE (04/09/2019 4:00 PM EDT) Hcg Quant <1 mIU/mL 04/09/2019 9:1 0 PM EDT [facility] [employer] [facility] Blood VENOUS BLOOD / Unknown 04/09/2019 4:00 PM EDT 04/09/2019 7:28 PM EDT Narrative [facility] [employer] - 04/09/2019 9:10 PM EDT < 5 mIU/mL Negative 5-25 [...] can interfere with this immunoassay test. Adela Morton [place] [address] [facility] CHEMISTRY ORDERABLES Fi nal Result Performing Organization Address [facility] Co de Phone Number [facility] [employer] [facility] [address] [facility] [address] , [place] [address] * CHOLESTEROL TOTAL (04/09/2019 4:00 PM EDT) Cholesterol 107 <=200 mg/dL 04/09/2019 9:07 PM EDT [facility] Comment: < 200 Desirable 200 - 239 Borderline High >= 240 High Blood VENOUS BLOOD / Unknown 04/09/2019 4:00 PM EDT 04/09/2019 7:28 PM EDT Adela Morton [place] [address] [facility] CHEMISTRY ORDERABLES Fi nal Result Performing Organization Address [facility] Co de Phone Number [employer] [facility] [address] [address] , [place] [address] documented in this encounter Visit Diagnoses Diagnosis Acne vulgaris Other acne Other intermediate card tender (current) drug therapy documented in this encounter Care Teams Sugar Refiner Relationship Specialty Start Date End Date Mary Powers [address] [facility] [address] [place] [id number] PCP - General Family Medicine 06/23/18 documented as of this encounter
--- OUTSIDE RECORDS SUMMARY | 2025-04-20 20:12 | XMS_ITS | Encounter Summary ---
Author Organization [place] [address] Care Team Providers Care Project Developer Name Role Phone Mary Powers Primary Care Provider [phone] Encounter Details Date Type Department Care Team (Late st Contact Info) Description 06/16/2019 Lab Requisition [facility] [place] [address] Adela Villalba, [facility] [address] [facility] [place] [address] Other skilled nursing (current) drug therapy; Acne vulgaris Social History Tobacco Use Types Packs/Day Years [...] Diagnosis Comments HUMAN CHORIONIC GONADOTROPIN QUANTITATIVE Routine 06/16/2019 4:00 PM EDT Other skilled nursing (current) drug therapy Acne vulgaris TRIGLYCERIDES Routine 06/16/2019 4:00 PM EDT Other skilled nursing (current) drug therapy Acne vulgaris CHOLESTEROL TOTAL Routine 06/16/2019 4:0 0 PM EDT Other skilled nursing (current) drug therapy Acne vulgaris HEPATIC FUNCTION PANEL Routine 09/24/201 9 4:00 PM EDT Other buttermaker helper (current) drug therapy Acne vulgaris documented in this encounter Results * (ABNORMAL) TRIGLYCERIDES (06/16/2019 4:00 PM EDT) Pathologist [facility] Triglyceride 529(H) <=150 mg/dL 06/16/2019 8:18 PM EDT [facility] [employer] Comment: < 150 Normal 150 - 199 Borderline High 200 - 499 High >= 500 Very High Blood VENOUS BLOOD / Unknown 06/16/2019 4:00 PM EDT 06/16/2019 6:55 PM EDT [facility] CHEMISTRY ORDERABLES Fi nal Result Performing Organization Address [facility] Phone Number [facility] [employer] [address] , [place] [address] * HUMAN CHORIONIC GONADOTROPIN QUANTITATIVE (06/16/2019 4:00 PM EDT) [facility] Hcg Quant <1 mIU/mL 06/16/2019 8:3 6 PM EDT [facility] [employer] Blood VENOUS BLOOD / Unknown 06/16/2019 4:00 PM EDT 06/16/2019 6:55 PM EDT Narrative [facility] [employer] - 06/16/2019 8:36 PM EDT < 5 mIU/mL Negative 5-25 [...] sample can interfere with this immunoassay test. [facility] CHEMISTRY ORDERABLES Fi nal Result Performing Organization Address [facility] de Phone Number [facility] [employer] [address] [address] * CHOLESTEROL TOTAL (06/16/2019 4:00 PM EDT) Cholesterol 122 <=200 mg/dL 06/16/2019 8:13 PM EDT [facility] Comment: < 200 Desirable 200 - 239 Borderline High >= 240 High Blood VENOUS BLOOD / Unknown 06/16/2019 4:00 PM EDT 06/16/2019 6:55 PM EDT [facility] CHEMISTRY ORDERABLES Fi nal Result Performing Organization Address City/[facility] Co de Phone Number [facility], [facility] [address] , [place] [address] * HEPATIC FUNCTION PANEL (06/16/2019 4:00 PM EDT) Total Protein 6.8 6.4 - 8.3 gm/dL 06/16/2019 8:13 PM EDT [facility] Albumin 4.4 3.5 - 5.2 gm/dL 06/16/2019 8:13 PM EDT [facility] Bili Direct <0.2 0.0 - 0.3 mg/dL 06/16/2019 8:13 PM EDT [facility] Bili Total 0.1 0.1 - 1.3 mg/dL 06/16/2019 8:13 PM EDT [facility] AST 32 <=40 IU/L 06/16/2019 8:13 PM EDT [facility] ALT 18 <=41 IU/L 06/16/2019 8:13 PM EDT [facility] Alk Phos 84 36 - 123 IU/L 06/16/2019 8:13 PM EDT [facility] Blood VENOUS BLOOD / Unknown 06/16/2019 4:00 PM EDT 06/16/2019 6:55 PM EDT [employer] CHEMISTRY ORDERABLES Fi nal Result Performing Organization Address City/[facility] Co de Phone Number [facility] [employer], [facility] [address] , [place] [address] documented in this encounter Visit Diagnoses Diagnosis Other skilled nursing (current) drug therapy Acne vulgaris Other acne documented in this encounter Care Teams Project Developer Relationship Specialty Start Date End Date Mary Powers [address] [facility] [address] [place] [id number] PCP - General Family Medicine 06/23/18 documented as of this encounter
--- OUTSIDE RECORDS SUMMARY | 2025-04-20 20:12 | XMS_ITS | Encounter Summary ---
Author Organization [facility] [place] [address] Care Team Providers Care Accounts Payable Payroll Coordinator Name Role Phone Mary Powers Primary Care Provider [phone] Encounter Details Date Type Department Care Team (Late st Contact Info) Description 02/05/2019 Lab Requisition [facility] [place] [address] Adela Villalba, [facility] [address] [facility] [place] [address] Other correction (current) drug therapy; Acne vulgaris Social History [...] Diagnosis Comments HUMAN CHORIONIC GONADOTROPIN QUANTITATIVE Routine 02/05/2019 4:00 PM EDT Other correction (current) drug therapy Acne vulgaris TRIGLYCERIDES Routine 02/05/2019 4:00 PM EDT Other correction (current) drug therapy Acne vulgaris CHOLESTEROL TOTAL Routine 02/05/2019 4:0 0 PM EDT Other correction (current) drug therapy Acne vulgaris HEPATIC FUNCTION PANEL Routine 05/16/201 9 4:00 PM EDT Other exterminator helper (current) drug therapy Acne vulgaris documented in this encounter Results * HEPATIC FUNCTION PANEL (02/05/2019 4:00 PM EDT) Total Protein 7.3 6.4 - 8.3 gm/dL 02/05/2019 10:03 PM EDT [facility] Albumin 4.2 3.5 - 5.2 gm/dL 02/05/2019 10:03 PM EDT [facility] Bili Direct <0.2 0.0 - 0.3 mg/dL 02/05/2019 10:03 PM EDT [facility] Bili Total 0.1 0.1 - 1.3 mg/dL 02/05/2019 10:03 PM EDT [facility] AST 14 <=40 IU/L 02/05/2019 10:03 PM EDT [facility] ALT 14 <=41 IU/L 02/05/2019 10:03 PM EDT [facility] Alk Phos 76 36 - 123 IU/L 02/05/2019 10:03 PM EDT [facility] Blood VENOUS BLOOD / Unknown 02/05/2019 4:00 PM EDT 02/05/2019 7:03 PM EDT [employer] [facility] CHEMISTRY ORDERABLES Fi nal Result [facility], [facility] [address] [facility] , [place] [address] * (ABNORMAL) TRIGLYCERIDES (02/05/2019 4:00 PM EDT) Triglyceride 238(H) <=150 mg/dL 02/05/2019 10:03 PM EDT [facility] Comment: < 150 Normal 150 - 199 Borderline High 200 - 499 High >= 500 Very High Blood VENOUS BLOOD / Unknown 02/05/2019 4:00 PM EDT 02/05/2019 7:03 PM EDT [employer] [facility] [employer] CHEMISTRY ORDERABLES Fi nal Result Performing Organization Address City/[facility] Co de Phone Number [facility] [address] [facility] , [place] [address] * HUMAN CHORIONIC GONADOTROPIN QUANTITATIVE (02/05/2019 4:00 PM EDT) Hcg Quant <1 mIU/mL 02/05/2019 9:5 4 PM EDT [facility] [employer] Blood VENOUS BLOOD / Unknown 02/05/2019 4:00 PM EDT 02/05/2019 7:03 PM EDT Narrative [facility] [employer] - 02/05/2019 9:54 PM EDT < 5 mIU/mL Negative 5-25 [...] interfere with this immunoassay test. Adela Morton [place] [employer] CHEMISTRY ORDERABLES Fi nal Result Performing Organization Address [facility] Co de Phone Number [employer] [facility] [address] [facility] , [place] [address] * CHOLESTEROL TOTAL (02/05/2019 4:00 PM EDT) Cholesterol 114 <=200 mg/dL 02/05/2019 10:03 PM EDT [facility] Comment: < 200 Desirable 200 - 239 Borderline High >= 240 High Blood VENOUS BLOOD / Unknown 02/05/2019 4:00 PM EDT 02/05/2019 7:03 PM EDT Adela Morton [place] [employer] CHEMISTRY ORDERABLES Fi nal Result Performing Organization Address City/[facility] Co de Phone Number [facility] [facility] [address] [facility] , [address] [address] documented in this encounter Visit Diagnoses Diagnosis Other exterminator helper (current) drug therapy Acne vulgaris Other acne documented in this encounter Care Teams Accounts Payable Payroll Coordinator Relationship Specialty Start Date End Date Mary Powers [address] [facility] [address] [place] [id number] PCP - General Family Medicine 06/23/18 documented as of this encounter
--- OUTSIDE RECORDS SUMMARY | 2025-04-20 20:12 | XMS_ITS | Data Portability ---
Author Organization [facility] NOÉ Ayala WAUZEKA CLOSED Address [address] [facility] [place] [address] Care Team Providers Care Vendor Management Specialist Name Role Phone JAIDA MUELLER Primary Care Provider [phone] Assessment No assessment recorded. Plan of Treatment Reminders Order Date Submit Date Provider Last Modified By Organization Details Last Modified Time Details Appointments None recorded. Lab TSH, serum or plasma 2017 018 [facility], [address] [place] [address], [phone], 8 18:11:06 TSH, serum or plasma 2016 017 [facility], [address] [place] [address], [phone], 7 16:00:24 Referral None recorded. Procedures None recorded. Surgeries None recorded. Imaging US, neck, soft tissue - To be done after 1 year before next visit on June 20192017 018 [facility], [address] [place] [address], [phone], 9 16:39:04 US, neck, soft tissue - Follow-up ultrasoun d on June 2018 before next appointme nt in June 2018. 2016 017 [email or web address] [facility], [address] [place] [address], [phone], 7 14:20:20 Medication Orders Maxalt-ML T 10 mg disintegr ating tablet 2021 022 [facility], [address], [address], 17:10:54 Patient TargetsNo targets recorded. Patient Instructions Encounter Date Encounter Id Patient Instructions Last Modified By Organization Details Last Modified Time 07/19/2017 [id number] influenza (flu) vaccine: care instructions AMANDEEP Not available 07/19/2017 18:20:50 Lab work today Follow-up ultrasound after 1 year before next appointment in 2018. wayoub Not available 07/19/2017 14:58:18 07/18/2018 [id number] goiter: care instructions wayoub Not available 07/18/2018 16:07:39 wayoub Not available 2017 16:05:08 Total time spent ozms-xt-asts with patient is 15 minutes with > 50 % spent on counseling on results and management plan. wayoub Not available 07/18/2018 16:05:24 07/17/2019 [id number] learning about type 2 diabetes wayoub Not available 07/17/2019 15:46:19 type 2 diabetes: care instructions wayoub Not available 07/17/2019 15:46:19 goiter: care instructions wayoub Not available 07/17/2019 15:45:19 03/19/[id number] scan images and ultrasound report reviewed by Dr Arenas 2. Discussed migraine management - Aleve, hydration, sleep 3. Recommend referral to oculoplastic surgeon 4. 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 Rx Maxalt 10mg #8 ; discussed possible medication complex 6. Follow up as needed chioma Not available 03/19/2022 17:21:44 Reason for Referral None Reported. Results Created Date Observation Date Name Description Value Unit Range Abnormal Flag Note LastModifiedBy Organization Detail LastModifiedTime 07/19/20 17 07/19/2017 TSH, serum or plasm a TSH 1.660 uIU/m L 0.290- 5.500 normal Not Available [facility] [address] [place], [address], 07/19/2017 16:00:24 07/18/20 18 07/18/2018 TSH, serum or plasm a TSH 0.785 uIU/m L 0.290- 5.500 normal Not Available [facility] [address] [place] [address], [phone], 07/18/2018 18:11:06 07/15/20 17 07/15/2017 US, neck, soft tissu e [facility] [address] [place] [address], [place] [address] Patien t Name: MONTANA LOO ER Patien t : 989 Patien t Orderi ng Provid er: JUAREZCATINA Neo PAINTER EXAM DATE: 2016 EXAM: US ECHO [...] Looney MD on 2016 4:55 PM [email or web address] [facility] [address] [place] [address], [phone], 07/16/2017 12:49:18 07/18/20 18 07/18/2018 US, neck, soft tissu e [facility] [address] [place] [address] [place] [address] Kane rubin Name: MONTANA rubin : 989 Kane rubin [...] Markell Madsen MD on 2017 3:37 PM [facility] [address] [place] [address], [phone], 07/19/2018 10:36:34 07/17/20 19 07/17/2019 US, neck, soft tissu e [facility] [address] [place] [address] [place] [address] Patihardik t Name: MONTANA rubin : 989 [...] compar ed [facility] Interp reted By: Hawa Looney MD Electr onical ly Signed By: Hawa Looney MD on 2018 4:33 PM [facility] [address], [address], 07/22/2019 19:43:48 03/28/20 22 03/28/2022 CT, sinus es, w/o contr ast [address] [address] Patien t Name: MONTANA DAMIR LOO ER Patien t : 989 Patien t [facility] er: SUNDAY DEVLIN KERON EXAM DATE: 2021 [...] normal . IMPRES NORM: 1. The parana anastacio sinuse s are clear. There is a possib le small osteom a along the outer table of the fronta l bone adjace nt to the right fronta l sinus. Interp reted By: Zakia tripathi MD Electr onical ly Signed By: Zakia tripathi MD on 03/28/20 22 8:19 AM [facility] [address], [phone], 03/30/2022 22:37:44 Result Notes Documentation Provider Name and Address Organization Details Recorded Time Ct, Sinuses, W/o Contrast : [address] [address] Patient Name: KAITY NORWOOD Patient : 1990 Patient Ordering Provider: BARTOLOME ARENAS EXAM DATE: 03/28/2022 EXAM: CT SINUS WITHOUT CONTRAST HISTORY: 31-year-old female with headaches and a possible osteoma. COMPARISON: None. TECHNIQUE: 1.0 mm axial direct images were obtained, and axial, coronal, and sagittal reconstruction images were generated from the source images. FINDINGS: Maxillary sinuses: There is no mucosal thickening in the maxillary sinuses. Ostia: The left and right osteomeatal units and frontal sinus ostia are patent. Ethmoid sinuses: The ethmoid sinuses are clear.. Frontal sinuses: The frontal sinuses are clear. There is a 2-3 mm sclerotic focus along the outer table of the frontal bone adjacent to the right frontal sinus. This may represent a small osteoma. Sphenoid sinuses: The sphenoid sinuses appear clear. Nasal septum and nasal passages: The nasal septum is midline. There is minimal mucosal hypertrophy of the nasal turbinates. The visualized brain parenchyma appears normal. The orbits are normal in appearance. No parapharyngeal mass is identified. The visualized mastoid air cells appear normal. IMPRESSION: 1. The paranasal sinuses are clear. There is a possible small osteoma along the outer table of the frontal bone adjacent to the right frontal sinus. Interpreted By: Eduardo Miguel MD OLOME ARENAS MD [address] [place] [address], [phone], [facility] 03/28/2022 12:22:48 Problems Name Problem SNOMED Code Status Onset Date Resolution Date Notes Provider Name and Address Organization Details Recorded Time Lack of energy 497682704 Active 2014 From Automated Load;Provi aniket: Salvador Paitner;Stat us: Active Not Available [facility] 6 10:53:43 Non-toxic multinodu lar goiter 12099947 Active 2014 From Automated Load;Provi aniket: Salvador Painter;Stat us: Active Not Available [facility] 6 10:53:43 Problem Notes None recorded. Medical Equipment None Reported. Allergies Allergen ID Allergen Name Allergen Category Reaction Reaction Severity Criticality Documentation Date Start Date Code Code System Note Provider Name and Address Organization Details Recorded Time 877590 benzoyl peroxide medicatio n rash Not available Not available 07/19/2017 1418 RxNorm Emy Mouser [facility] 7 14:37:05 675244 salicylic acid medicatio n Not available Not available Not available 03/19/2022 9525 RxNorm Radha Guerrero [facility] 2 15:43:01 Medications Name Sig Start Date [...] Not Available No t Available Fluzone Quad (P F) 60 mcg(15 mcgx4)/0. 5 mL intramusc ular syringe INJECT 0.5 MILLILIT ER (60 MCG) BY INTRAMUS CULAR ROUTE ONCE 07/18 completed Not Available Not Available Not Available Vitals Date Recorded Body weight Body temperature Heart rate Oxygen saturation Oxygen saturation in Arterial blood by Pulse oximetry Systolic And Diastolic Provider Name and Address Organization Details Last Updated DateTime 2 375294. 98 g 97 [degF] 99 /min 99 % 99 % 133/84 mm[Hg] HeavenEnmanuel Krausley [facility] 2 15:45:58 Date Recorded Body height Body mass index (BMI) Body weight Heart rate Systolic And Diastolic Provider Name and Address Organization Details Last Updated DateTime 07/17/2019 157.48 cm 44.6 kg/m2 118065.5 4 g 98 /min 128/78 mm[Hg] Emy [facility] 07/17/2019 15:28:05 Date Recorded Body height Body mass index (BMI) Body weight Heart rate Systolic And Diastolic Provider Name and Address Organization Details Last Updated DateTime 07/18/2018 157.48 cm 48.3 kg/m2 717368.3 9 g 103 /min 118/68 mm[Hg] [facility] 07/18/2018 15:37:15 Date Recorded Body height Body mass index (BMI) Body weight Heart rate Systolic And Diastolic Provider Name and Address Organization Details Last Updated DateTime 07/19/2017 157.48 cm 48.3 kg/m2 224280.3 9 g 118 /min 122/76 mm[Hg] [facility] 07/19/2017 14:36:39 Social History Question Answer Notes LastModified by Organizat ion Details LastModified Time Tobacco Smoking Status Former Smoker Emysalazar Ryan [facility] 07/19/2017 14:39:14 What Was The Date Of Your Most Recent Tobacco Screening? 07/18/2018 Information n ot available 11/10/2019 Sex: Unknown Functional Status None recorded. Mental Status None recorded. Family History Relationship Description Onset Age of this Age Resolved Age Notes LastModified by Organization Details LastModified Time Sister Disorder of thyroid gland [email or web address] Not available 03/19 15:43:38 Medical History Condition Response Anxiety Disorder Y Diabetes Y Depression Y Gynecological HistoryNo gynecological history recorded. Obstetrics History GPAL:G 0 P 0 0 0 0 Immunizations Vaccine Type Date Status Note Provider Nam annalee and Address Organization Details Recorded Time Influenza, split virus, quadrivalent, PF 07/19/2017 completed Not Available [facility] 0 02:50:37 Past Encounters Encounter ID Performer Location Encounter Start Date Encounter Closed Date Diagnosis/Indication Diagnosis SNOMED-CT Code Diagnosis ICD10 Code Diagnosis Note [id number] SALVADOR PAINTER MD [facility] [address] [place] [address] 07/19/2017 14:16:36 07/19/2017 15:54:41 Administration of influenza vaccine 43754260 Z23 Flu vaccinatio n provided in the office today. Multinodular goiter 2375 41360 E04.2 Follow-up ultrasound on 07/15/2017 showed right [...] by a repeat ultrasound after 1 year. [id number] SALVADOR PAINTER MD [facility] [address] [place] [address] 07/18/2018 14:35:59 07/21/2018 08:32:06 Non-toxic multinodular goiter 22179125 E04.2 28-year-ol d -Am erican female patient [...] with the above mentioned plan of care. [id number] SALVADOR PAINTER MD [facility] [address] [place] [address] 07/17/2019 14:49:16 07/17/2019 15:56:40 Non-toxic multinodular goiter 54201057 E04.2 29 year-old -Am erican female patient [...] consistent with a benign nodule in 2015. I recommend no further testing or interventi on from thyroid nodules standpoint and to resume her routine care with her primary care provider for necessary physical exam and laboratory workup and see us an as-needed basis. Patient verbalized understand ing and agreed with the above mentioned plan of care. Type 2 aster betes mellitus without complication 397765586 E11.9 Continue current metformin therapy Defer further management to patient primary care. 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 Bipolar disorder 2371760 4 F31.9 New diagnosis and medication s Health Concerns Section Related Observation LastModified by Organization Detai ls LastModified Time None Recorded Concern Status LastModified by Organization Details LastModified Time None Recorded Advance Directives Directive None Recorded Payers Insurance Date Sequence Insurance Name Policy Number Policy Ty Covered Member ID Ty Member ID Guarantor Name 03/29/2022 1 [place] [id number] Kaity Norwood [id number] Kaity Norwood 03/19/2022 1 [employer] SIGNATURE ADMINISTRATORS - [facility] - DOS ON OR BEFORE 09/22/2023 - DAVIDE (PPO) Kaity Norwood [id number] Kaity Norwood OBGyn Episode No OBEpisode recorded.
--- OUTSIDE RECORDS SUMMARY | 2025-04-20 20:12 | XMS_ITS | Encounter Summary ---
Author Organization [facility] [place] [place] [address] Care Team Providers Care Field Control Inspector Name Role Phone Mary Powers Primary Care Provider Encounter Details Date Type Department Care Team (Late st Contact Info) Description 07/16/2019 Lab Requisition [facility] [place] [address] Adela Villalba, [facility] [address] [facility] [address] Other long-term (current) drug therapy; Acne vulgaris Social History [...] Diagnosis Comments HUMAN CHORIONIC GONADOTROPIN QUANTITATIVE Routine 07/16/2019 3:31 PM EDT Other long-term (current) drug therapy Acne vulgaris TRIGLYCERIDES Routine 07/16/2019 3:31 PM EDT Other long-term (current) drug therapy Acne vulgaris CHOLESTEROL TOTAL Routine 07/16/2019 3:3 1 PM EDT Other long-term (current) drug therapy Acne vulgaris HEPATIC FUNCTION PANEL Routine 10/24/201 9 3:31 PM EDT Other adjunct faculty for medical terminology (current) drug therapy Acne vulgaris documented in this encounter Results * HEPATIC FUNCTION PANEL (07/16/2019 3:31 PM EDT) Total Protein 6.6 6.4 - 8.3 gm/dL 07/16/2019 7:48 PM EDT [facility] Albumin 4.0 3.5 - 5.2 gm/dL 07/16/2019 7:48 PM EDT [facility] Bili Direct <0.2 0.0 - 0.3 mg/dL 07/16/2019 7:48 PM EDT [facility] Bili Total 0.1 0.1 - 1.3 mg/dL 07/16/2019 7:48 PM EDT [facility] AST 29 <=40 IU/L 07/16/2019 7:48 PM EDT [facility] ALT 16 <=41 IU/L 07/16/2019 7:48 PM EDT [facility] Alk Phos 90 36 - 123 IU/L 07/16/2019 7:48 PM EDT [facility] Blood VENOUS BLOOD / Unknown 07/16/2019 3:31 PM EDT 07/16/2019 6:31 PM EDT [email or web address] [facility] CHEMISTRY ORDERABLES Fi nal Result [facility], [facility] [address] , [place] [address] * (ABNORMAL) TRIGLYCERIDES (07/16/2019 3:31 PM EDT) Triglyceride 425(H) <=150 mg/dL 07/16/2019 7:48 PM EDT [facility] Comment: < 150 Normal 150 - 199 Borderline High 200 - 499 High >= 500 Very High Blood VENOUS BLOOD / Unknown 07/16/2019 3:31 PM EDT 07/16/2019 6:31 PM EDT [employer]ING [employer] CHEMISTRY ORDERABLES Fi nal Result Performing Organization Address City/[facility]/ZIP Co de Phone Number [facility] [address] , [place] [address] * HUMAN CHORIONIC GONADOTROPIN QUANTITATIVE (07/16/2019 3:31 PM EDT) Hcg Quant <1 mIU/mL 07/16/2019 7:3 9 PM EDT [facility] [employer] Blood VENOUS BLOOD / Unknown 07/16/2019 3:31 PM EDT 07/16/2019 6:31 PM EDT Narrative [facility] [employer] - 07/16/2019 7:39 PM EDT < 5 mIU/mL Negative 5-25 [...] interfere with this immunoassay test. Adela Morton Saluda RAILROAD PURCHASING AGENT CHEMISTRY ORDERABLES Fi nal Result Performing Organization Address [facility] Co de Phone Number [employer] [facility] [address] , [place] [address] * CHOLESTEROL TOTAL (07/16/2019 3:31 PM EDT) Cholesterol 101 <=200 mg/dL 07/16/2019 7:39 PM EDT [facility] Comment: < 200 Desirable 200 - 239 Borderline High >= 240 High Blood VENOUS BLOOD / Unknown 07/16/2019 3:31 PM EDT 07/16/2019 6:31 PM EDT Adela Morton Saluda RAILROAD PURCHASING AGENT CHEMISTRY ORDERABLES Fi nal Result Performing Organization Address City/[facility] Co de Phone Number [employer] [facility] [address] , [place] [address] documented in this encounter Visit Diagnoses Diagnosis Other long-term (current) drug therapy Acne vulgaris Other acne documented in this encounter Care Teams Field Control Inspector Relationship Specialty Start Date End Date Mary Powers [address] [facility] [address] [place] [address] PCP - General Family Medicine 06/23/18 documented as of this encounter
--- OUTSIDE RECORDS SUMMARY | 2025-04-20 20:13 | XMS_ITS | Encounter Summary ---
Author Organization [facility] [place] [address] Care Team Providers Care Cheese Specialist Name Role Phone Mary Powers Primary Care Provider [phone] Encounter Details Date Type Department Care Team (Late st Contact Info) Description 01/05/2019 Lab Requisition [facility] [place] [address] Adela Villalba, [facility] [address] [facility] [place] [address] Acne vulgaris; Other penitentiary (current) drug therapy Social History Tobacco Use [...] Diagnosis Comments HUMAN CHORIONIC GONADOTROPIN QUANTITATIVE Routine 01/05/2019 3:18 PM EDT Acne vulgaris Other tank terminal gauger (current) drug therapy TRIGLYCERIDES Routine 01/05/2019 3:18 PM EDT Acne vulgaris Other tank terminal gauger (current) drug therapy CHOLESTEROL TOTAL Routine 01/05/2019 3:1 8 PM EDT Acne vulgaris Other penitentiary (current) drug therapy HEPATIC FUNCTION PANEL Routine 04/15/201 9 3:18 PM EDT Acne vulgaris Other penitentiary (current) drug therapy documented in this encounter Results * HEPATIC FUNCTION PANEL (01/05/2019 3:18 PM EDT) Total Protein 7.1 6.4 - 8.3 gm/dL 01/05/2019 9:02 PM EDT [facility] Albumin 4.6 3.5 - 5.2 gm/dL 01/05/2019 9:02 PM EDT [facility] Bili Direct <0.2 0.0 - 0.3 mg/dL 01/05/2019 9:02 PM EDT [facility] Bili Total 0.1 0.1 - 1.3 mg/dL 01/05/2019 9:02 PM EDT [facility] AST 13 <=40 IU/L 01/05/2019 9:02 PM EDT [facility] ALT 13 <=41 IU/L 01/05/2019 9:02 PM EDT [facility] Alk Phos 76 36 - 123 IU/L 01/05/2019 9:02 PM EDT [facility] Blood VENOUS BLOOD / Unknown 01/05/2019 3:18 PM EDT 01/05/2019 7:18 PM EDT [employer] [facility] CHEMISTRY ORDERABLES Fi nal Result [facility], [facility] [address] [facility] , [place] [address] * (ABNORMAL) TRIGLYCERIDES (01/05/2019 3:18 PM EDT) Triglyceride 159(H) <=150 mg/dL 01/05/2019 9:02 PM EDT [facility] Comment: < 150 Normal 150 - 199 Borderline High 200 - 499 High >= 500 Very High Blood VENOUS BLOOD / Unknown 01/05/2019 3:18 PM EDT 01/05/2019 7:18 PM EDT [employer] CHILLER OPERATOR CHEMISTRY ORDERABLES Fi nal Result Performing Organization Address City/[facility] Co de Phone Number [employer] [address] [facility] , [place] [address] * HUMAN CHORIONIC GONADOTROPIN QUANTITATIVE (01/05/2019 3:18 PM EDT) Hcg Quant <1 mIU/mL 01/05/2019 9:0 0 PM EDT [employer] Blood VENOUS BLOOD / Unknown 01/05/2019 3:18 PM EDT 01/05/2019 7:18 PM EDT Narrative [employer] - 01/05/2019 9:00 PM EDT < 5 mIU/mL Negative 5-25 [...] interfere with this immunoassay test. Adela Morton Merrill CHILLER OPERATOR CHEMISTRY ORDERABLES Fi nal Result Performing Organization Address [facility] Co de Phone Number [employer] [address] [facility] , [place] [address] * CHOLESTEROL TOTAL (01/05/2019 3:18 PM EDT) Cholesterol 107 <=200 mg/dL 01/05/2019 9:02 PM EDT [employer] Comment: < 200 Desirable 200 - 239 Borderline High >= 240 High Blood VENOUS BLOOD / Unknown 01/05/2019 3:18 PM EDT 01/05/2019 7:18 PM EDT Adela Morton Merrill CHILLER OPERATOR CHEMISTRY ORDERABLES Fi nal Result Performing Organization Address City/[facility] Co de Phone Number [employer] [address] [facility] , [place] [address] documented in this encounter Visit Diagnoses Diagnosis Acne vulgaris Other acne Other tank terminal gauger (current) drug therapy documented in this encounter Care Teams Cheese Specialist Relationship Specialty Start Date End Date Mary Powers [address] [facility] [address] [place] [address] PCP - General Family Medicine 06/23/18 documented as of this encounter
--- OUTSIDE RECORDS SUMMARY | 2025-04-20 20:13 | XMS_ITS | Referral Summary ---
Author Organization [employer] ([place], [place], [place], [place]) Address [address] [place] [address] Care Team Providers Care Trading Specialist Name Role Phone Arsalan Powers MD Primary Care Provider [phone] Allergies Active Allergy Reactions Criticality Noted Date Comments Benzoyl Peroxid-Salicylic Acid 08/07 rash Medications ARIPiprazole (ABILIFY) 5 MG tablet Take 2 tablets (10 mg total) by mouth nightly. 2 Active venlafaxine (EFFEXOR-XR) 150 MG 24 hr capsule Take by mouth. 2 Active venlafaxine (EFFEXOR-XR) 75 MG 24 hr capsule Take 1 capsule (75 mg total) by mouth daily. 2 Active rizatriptan (MAXALT-RISK CONTROL REPRESENTATIVE) 10 MG disintegrating tablet as needed. Active Dexcom G7 Sensor olesya USE 1 EVERY 10 DAYS 5 Active folic acid (FOLVITE) 400 MCG tablet Take 1 tablet (400 mcg total) by mouth daily. Active insulin lispro (HumaLOG) 100 unit/mL inpn Inject 6 Units subcutaneous ly. 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 RHM 04/30/2023 Morbid obesity 08/07/2022 Type 2 diabetes mellitus wit h hyperosmolarity without coma, without long-term current use of insulin 08/07/2022 Bipolar 2 disorder 08/07/2022 Obstructive sleep apnea (adult) (pediatric) 07/24 Gastroesophageal reflux disease without esophagi tis 08/07/2022 PCOS (polycystic ovarian syndrome) 08/07/2022 Comments Yes Resolved Problems Problem Noted Date Diagnosed Date Resolved Date Dysphagia, unspecified type 08/07/2022 04/01/2023 Social History Tobacco Use Types Packs/Day Years Used Date Smoking Tobacco: Former Cigarettes 0.5 3 2 016 - 2019 Smokeless Tobacco: Never Tobacco Cessation:Counseling Given: Not Answered Alcohol Use Standard Drinks/Week Comments Never 0 (1 standard drink = 0.6 oz pur e alcohol) PRAPARE - Transportation Answer Date Re corded In the past 12 months, has l ack of transportation kept you from medical appointments or from getting medications? No 04/30/2023 Lack of Transportation (Non-Medical) Not on file 04/30/2023 Family and Community Support Answer Anton e Recorded Help with Day to Day Activities Not on file 10/02/2023 Feeling Lonely or Isolated Not on file 10/02 Educational Attainment Answer Date Alejandro rded Speak language other than Faroese at home Not on file 10/02/2023 Want help with school or training Not on file 10/02/2023 Substance Use Answer Date Recorded Used prescription meds for non-medical reasons N ot on file 10/02/2023 Used illegal drugs past 12 months Not on file 10/02/2023 Comments Yes Sex and Gender Information Value Date Recorded Sex Assigned at Female 03/20/2022 9:08 PM CDT Legal Sex Female 9:08 PM CDT Gender Identity Female 03/20/2022 9:08 PM CDT Sexual Orientation Not on file Last Filed Vital Signs Vital Sign Reading Time Taken Comments Blood Pressure 100/58 10/28/2024 9:31 AM EST Pulse 72 10/28/2024 9:31 AM EST Temperature 36.6 C (97.9 F) 05/07/2023 8:51 AM EDT Respiratory Rate 17 04/30/2023 5:35 PM EDT Oxygen Saturation 98% 05/01/2023 9:55 AM EDT Inhaled Oxygen Concentration - - Weight 89.7 kg (197 lb 12.8 oz) 10/28/2024 9:31 AM EST Height 158.8 cm (5' 2.5 ) 09/02/2023 8:50 AM EST Body Mass Index 35.6 09/02/2023 8:50 AM EST Plan of Treatment Upcoming Encounters Date Type Department Care Team (Late st Contact Info) Description 05/05/2025 11:00 AM EDT Office Visit [facility] [address] [facility] [address] [place] [address] Phuong David MD [address] [facility] [address] [place] [address] Procedures Procedure Name Priority Date/Time Associated Diagnosis Comments HEMOGLOBIN A1C Routine 04/29/2024 10:26 AM EDT S/P gastric sleeve procedure History of diabetes mellitus resolved following bariatric surgery LIPID PANEL Routine 08/07/2023 11:12 AM EST Dysphagia, unspecified type Morbid obesity (HCC) Type 2 diabetes mellitus with hyperosmolarity without coma, without long-term current use of insulin (HCC) Bipolar 2 disorder (HCC) Obstructive sleep apnea (adult) (pediatric) Gastroesophageal reflux disease without esophagitis PCOS (polycystic ovarian syndrome) from Last 3 Months or Most Recently Relevant to Health Maintenance Results * Hemoglobin A1c (04/29/2024 10:26 AM EDT) Hemoglobin A1C 5.0 4.2 - 6.3 % 04/29/2024 11:19 AM EDT [facility] Comment: Hemoglobin A1C levels are related to mean glucose during the preceding 2-3 months. Less than 7% demonstrates glycemic control in diabetic patients. Hemoglobin AlC % Suggested Diagnosis > or = 6.5 Diabetic 5.7 - 6.4 Prediabetic <5.7 Non-diabetic eAVG Glucose 96.8 mg/dL 04/29/2024 11:19 AM EDT [facility] Blood Venipuncture / Unknown 04/29/2024 10:26 AM EDT 04/29/2024 10:26 AM EDT us Phuong David MD LAB BLOOD ORDERABLES Final Resu lt [facility] [address] [phone] * (ABNORMAL) Lipid panel (08/07/2023 11:12 AM EST) Triglycerides 210 0 - 249 mg/dL 08/07/2023 12:43 PM EST [facility] Cholesterol 144 0 - 199 mg/dL 08/07/2023 12:43 PM EST [facility] Comment: 200 to 239 mg/dL = Moderate (borderline) >239 mg/dL = High HDL Cholesterol 43 >=40 mg/dL 08/07/2023 12:43 PM EST [facility] Comment: >=60 mg/dL = Desirable <40 mg/dL = Increased Risk All other components are listed individually or are calculations VLDL Cholesterol 42(H) 5 - 40 mg/dL 08/07/2023 12:43 PM EST [facility] Cholesterol/HDL ratio 3.3(H) 0.0 - 3.2 08/07/2023 12:43 PM [facility] LDl/HDL Ratio 1 0 - 4 08/07/2023 12:43 PM [facility] RISK COMP 3 08/07/2023 12:43 PM [facility] LDL Cholesterol, Calculated 59 0 - 99 mg/dL 08/07/2023 12:43 PM [facility] Blood Venipuncture / Unknown 08/07/2023 11:12 AM EST 08/07/2023 11:12 AM EST us Yi Cruz PA-C LAB BLOOD ORDERABLES Fi nal Result Performing Organization Address [facility]/ZIP Co de Phone Number [facility] [address] [phone] from Last 3 Months or Most Recently Relevant to Health Maintenance Insurance GENERIC COMMERCIAL [facility] CHOICE PLUS Advance Directives For more information, please contact: [phone] * Full Code (Latest Code Status on File) Date Activated Date Inactivated Comments 04/30/2023 10:00 AM 05/01/2023 3:45 PM * Full Code Date Activated Date Inactivated Comments 04/30/2023 5:15 AM 04/30/2023 10:00 AM Care Teams Trading Specialist Relationship Specialty Start Date End Date Arsalan Powers MD [address] [employer] [phone] PCP - General Family Medicine 08/07/22
--- OUTSIDE RECORDS SUMMARY | 2025-04-20 20:13 | XMS_ITS | Encounter Summary ---
Author Organization [facility] Address [address] [place] [address] Care Team Providers Care Hr Receptionist Name Role Phone Provider, No Known Primary Care Provider Unavail able Encounter Details Date Type Department Care Team (Late st Contact Info) Description 12/11/2024 Medication Therapy Management [facility] [address] [place] [id number] Yi Kiran MD [address] [place] [address] Social History Tobacco Use Types Packs/Day Years Used Date Smoking Tobacco: Former Cigarettes Smokeless Tobacco: Never Alcohol Use Standard Drinks/Week Comments Not Currently 0 (1 standard drink = 0.6 oz pur e alcohol) [facility] Utilities Answer Date Recorded In the past 12 months has [employer], [employer], oil, or water [employer] threatened to shut off services in your [...] and heating? Not hard at all 12/12/2024 [facility] - Occupational Stress Questionnaire Answer Date [...] things needed for daily living? No 12/12/2024 [place] Depression Scale Answer Date Recorded [place] Depression Scale Total 6 12/13/2024 The thought of harming myself has occurred to me . Never 12/13/2024 Abuse Screen Answer Date Recorded Feels Unsafe [...] GED or equivalent No 12/12/2024 Preferred Language Danish 12/12/2024 PHQ-2 Answer Date Recorded Patient Health Questionnaire-2 Score 1 12/12/2024 Comments Yes Sex and Gender Information Value Date Recorded Sex Assigned at Not on file Legal Sex Female 9:38 AM EDT Gender Identity Not on file Sexual Orientation Not on file documented as of this encounter Functional Status * Over the past 2 weeks, how often have you been bothered by any of the following problems? Question Answer Date of Assessment Author Patient Health Questionnaire -2 Score 1 12/12/2024 1:07 PM EDT Key Christian RN * Question Answer Date of Assessment Author 1. Wish to be (Past 1 Month) No 025 12:58 PM JOLIET Key Christian RN 2. Non-Specific Active Suici davidson Thoughts (Past 1 Month) No 12/12/2024 12:58 PM EDT Gwen Christian RN * Calculated C-SSRS Risk Score (Lifetime/Recent) Answer Date of Assessment Author No Risk Indicated 12/12/2024 12:58 PM EDT Key Christian RN * [place] Suicide Severity Rating Scale (Screener/Recent Self-Report) Question Answer Date of Assessment Author 6. Suicidal Behavior (Lifetime) No 12:58 PM JOLIET Key Christian RN * Question Answer Date of Assessment Author Little interest or pleasure in doing things Not at all 12/12/2024 1:07 PM JOLIET Key Christian RN Feeling down, depressed, or hopeless Several days 12/12/2024 1:07 PM EDT Key Christian RN documented as of this encounter Plan of Treatment Not on file documented as of this encounter Visit Diagnoses Not on filedocumented in this encounter Care Teams Hr Receptionist Relationship Specialty Start Date End Date Provider, [place] [address] PCP - General 06/15/24 documented as of this encounter
--- OUTSIDE RECORDS SUMMARY | 2025-04-20 20:13 | XMS_ITS | Clinical Summary ---
Author Organization [employer] ([place], [place], [place], [place]) Address [address] [place] [address] Care Team Providers Care Director Child Abuse Therapy Name Role Phone Arsalan Powers MD Primary Care Provider [phone]- [phone] Allergies Active Allergy Reactions Criticality Noted Date Comments Benzoyl Peroxid-Salicylic Acid 08/07 rash Medications ARIPiprazole (ABILIFY) 5 MG tablet Take 2 tablets (10 mg total) by mouth nightly. 2 Active venlafaxine (EFFEXOR-XR) 150 MG 24 hr capsule Take by mouth. 2 Active venlafaxine (EFFEXOR-XR) 75 MG 24 hr capsule Take 1 capsule (75 mg total) by mouth daily. 2 Active rizatriptan (MAXALT-SENIOR TELLER) 10 MG disintegrating tablet as needed. Active [...] Date Alejandro rded Speak language other than Kazakh at home Not on file 10/02/2023 Want [...] Description 05/05/2025 11:00 AM EDT Office Visit [facility] [address] [facility] [address] [place] [address] Phuong David MD [address] [facility] [address] [place] [address] Health Maintenance Due Date Last Done Comments Diabetic Kidney Health Evalu ation (KED) 1989 Diabetic Eye Exam 1999 HIV Screening 2004 Hepatitis C Screening 2007 DTAP/TDAP/TD VACCINES (1 - Tdap) 2008 Pap Smear 2010 COVID-19 VACCINE (5 - 2023-2 5 season) 2024 08/07/2022, 08/07/2021, 12/28/2020, Additional history exists Hemoglobin A1C 10/30/2024 04/29/2024, 06/05/2023 Influenza Vaccine (#1) 2025 Tobacco Cessation Counseling and Screening (12+) 10/28/2025 10/28/2024 Lipid Panel 08/07/2026 08/07/2023, 12/03/2022 Respiratory Syncytial Virus (RSV) Adult or (1 - 1-dose 75+ series) 2064 Pneumococcal Vaccine: 0-49 Years Completed 04/18/20 22 Procedures Procedure Name Priority Date/Time Associated Diagnosis [...] - 6.3 % 04/29/2024 11:19 AM EDT [facility] Comment: Hemoglobin A1C levels are related to mean glucose during the preceding 2-3 months. Less than 7% demonstrates glycemic control in diabetic patients. Hemoglobin AlC % Suggested Diagnosis > or = 6.5 Diabetic 5.7 - 6.4 Prediabetic <5.7 Non-diabetic eAVG Glucose 96.8 mg/dL 04/29/2024 11:19 AM EDT [facility] Blood Venipuncture / Unknown 04/29/2024 10:26 AM EDT 04/29/2024 10:26 AM EDT us Phuong David MD LAB BLOOD ORDERABLES Final Resu lt [facility] [address] [phone] * (ABNORMAL) Lipid panel (08/07/2023 11:12 AM EST) Triglycerides 210 0 - 249 mg/dL 08/07/2023 12:43 PM EST [facility] Cholesterol 144 0 - 199 mg/dL 08/07/2023 12:43 PM EST [facility] Comment: 200 to 239 mg/dL = Moderate (borderline) >239 mg/dL = High HDL Cholesterol 43 >=40 mg/dL 08/07/2023 12:43 PM EST [facility] Comment: >=60 mg/dL = Desirable <40 mg/dL = Increased Risk All other components are listed individually or are calculations VLDL Cholesterol 42(H) 5 - 40 mg/dL 08/07/2023 12:43 PM EST [facility] Cholesterol/HDL ratio 3.3(H) 0.0 - 3.2 08/07/2023 12:43 PM EST [facility] LDl/HDL Ratio 1 0 - 4 08/07/2023 12:43 PM [facility] RISK COMP 3 08/07/2023 12:43 PM EST [facility] LDL Cholesterol, Calculated 59 0 - 99 mg/dL 08/07/2023 12:43 PM EST [facility] Blood Venipuncture / Unknown 08/07/2023 11:12 AM EST 08/07/2023 11:12 AM EST us Yi Cruz PA-C LAB BLOOD ORDERABLES Fi nal Result [facility] [address] [place] [id number] [phone] from Last 3 Months or Most Recently Relevant to Health Maintenance Insurance GENERIC COMMERCIAL [facility] CHOICE PLUS Advance Directives For more information, please contact: [phone] * Full Code (Latest Code Status on File) Date Activated Date Inactivated Comments 04/30/2023 10:00 AM 05/01/2023 3:45 PM * Full Code Date Activated Date Inactivated Comments 04/30/2023 5:15 AM 04/30/2023 10:00 AM Care Teams Director Child Abuse Therapy Relationship Specialty Start Date End Date Arsalan Powers MD [address] [place] [phone] PCP - General Family Medicine 08/07/22
--- OUTSIDE RECORDS SUMMARY | 2025-04-20 20:13 | XMS_ITS | Encounter Summary ---
[facility] Address [address] [place] [address] Care Team Providers Care Rehabilitation Inspector Name Role Phone Provider, No Known Primary Care Provider Unavail able Encounter Details Date Type Department Care Team (Late st Contact Info) Description 12/11/2024 Medication Therapy Management [facility] [address] [phone] Yi Kiran MD [address] [place] [address] Type 2 diabetes mellitus in , third trimester Social History Tobacco Use Types Packs/Day Years Used Date Smoking Tobacco: Former Cigarettes Smokeless Tobacco: Never Alcohol Use Standard Drinks/Week Comments Not Currently 0 (1 standard drink = 0.6 oz pur e alcohol) [facility] Utilities Answer Date Recorded In the past 12 months has [employer], gas, oil, or water [employer] threatened to shut off services in your [...] and heating? Not hard at all 12/12/2024 [facility] - Occupational Stress Questionnaire Answer Date Recorded [...] things needed for daily living? No 12/12/2024 [place] Depression Scale Answer Date Recorded [place] Depression Scale Total 6 12/13/2024 The thought [...] GED or equivalent No 12/12/2024 Preferred Language Maltese 12/12/2024 PHQ-2 Answer Date Recorded Patient Health [...] (Past 1 Month) No 025 12:58 PM Key Perales RN 2. Non-Specific Active Suici davidson Thoughts (Past 1 Month) No 12/12/2024 12:58 PM EDT Gwen Christian RN * Calculated C-SSRS Risk Score (Lifetime/Recent) Answer Date of Assessment Author No Risk Indicated 12/12/2024 12:58 PM EDT Key Christian RN * [place] Suicide Severity Rating Scale (Screener/Recent Self-Report) Question Answer Date of Assessment Author 6. Suicidal Behavior (Lifetime) No 12:58 PM JOLIET Key Christian RN * Question Answer Date of Assessment Author Little interest or pleasure in doing things Not at all 12/12/2024 1:07 PM Key Perales RN Feeling down, depressed, or hopeless Several days 12/12/2024 1:07 PM EDT Gino, Key R, RN documented as of this encounter Plan of Treatment Not on file documented as of this encounter Visit Diagnoses Diagnosis Type 2 diabetes mellitus in , third trimester documented in this encounter Care Teams Rehabilitation Inspector Relationship Specialty Start Date End Date Provider, [place] [address] PCP - General 06/15/24 documented as of this encounter
--- NOTE | 2025-04-20 20:34 | ED_ITS ---
Discharge Plan Disposition Patient Disposition: Home, Self-Care Condition: Good Prescriptions Prescriptions: No Action rizatriptan 10 mg tablet,disintegrating 10 mg PO DAILY PRN (Reason: Migraine Headache) omeprazole 20 mg capsule,delayed release(DR/EC) 20 mg PO DAILY PRN (Reason: gerd) Patient Comments: TAKE 1 CAPSULE BY MOUTH ONCE DAILY (DME) Dexcom G7 Sensor Device See Rx Instructions .ROUTE .MEDSUPPLY Qty: 1 11RF Rx Instructions: As directed (DME) Dexcom G7 Sensor Device See Rx Instructions .ROUTE .MEDSUPPLY Qty: 1 Patient Comments: USE 1 EVERY 10 DAYS Rx Instructions: As directed norgestimate-ethinyl estradiol [Tri-Lo-Lorenza] 0.18/0.215/0.25 mg-0.025 mg tablet 1 tab PO DAILY Qty: 84 4RF venlafaxine 75 mg capsule,extended release 24hr 75 mg PO DAILY venlafaxine 150 mg capsule,extended release 24hr 150 mg PO DAILY aripiprazole 10 mg tablet 10 mg PO DAILY Referrals Follow up/Referrals: Laya Guaman APRN [Primary Care Provider, Family Practice] - See instructions Activity Restrictions/Add. Instructions Additional Instructions/Restrictions: Please follow up with your small animal caretaker as we discussed. If you have any new or worsening symptoms please return to the ER for further evaluation. Clinical Impressions Clinical Impression: Abdominal pain Instructions Patient Instructions: DI for Acute Abdominal Pain Print Language Print Language: Hebrew Discharge ED Provider: Irving Welsh General Adult HPI <SAKSHI Wyman - Last Filed: 04/21/25 12:58> General Chief complaint: Abdominal Pain Stated complaint: Stomach pain Time Seen by Provider: 04/20/25 20:34 Mode of Arrival: Ambulatory Source of Information: Patient Description of Symptoms (Recalled from ER Triage Doc. by RN): abdominal pain for last 2 hours with associated diarrhea History of Present Illness HPI narrative: Patient presents for acute onset of abdominal pain nausea vomiting and diarrhea. Patient reports her symptoms began around 1800 hrs. She has had 1 episode of vomiting and several episodes of loose watery stool. She denies any fever chills hemoptysis hematochezia melena hematemesis hematuria dysuria. Patient is status post gastric sleeve. She does not have a history of inflammatory bowel disease. Patient reports that she has eaten [employer] several times today. Related Data Home Medications ?Medication ?Instructions ?Recorded ?Confirmed rizatriptan 10 mg disintegrating 10 mg PO DAILY PRN Mi graine 08/29/22 04/20/25 tablet Headache omeprazole 20 mg capsule,delayed 20 mg PO DAILY PRN ge rd 01/24/24 04/20/25 release blood-glucose sensor (Dexcom G7 #1 ea 11/09/24 5 Sensor device) aripiprazole 10 mg tablet 10 mg PO DAILY 04/20/2503/24 venlafaxine 150 mg 150 mg PO DAILY 04/20/25 capsule,extended release 24 hr venlafaxine 75 mg capsule,extended 75 mg PO DAILY 03/2404/20/25 release 24 hr Previous Rx's ?Medication ?Instructions ?Recorded norgestimate 0.18 mg/0.215mg/0.25 1 tab PO DAILY #84 t abs 01/26/25 mg-ethinyl estradiol 0.025 mg tablet (Tri-Lo-Lorenza) blood-glucose sensor (Dexcom G7 #1 ea 02/22/25 Sensor device) Allergies Allergy/AdvReac Type Severity Reaction Status Date / Time benzoyl peroxide Allergy Mild rash Verified 04/03/25 10:07 salicylic acid Allergy Mild Rash Verified 04/03/25 10:07 [facility] <SAKSHI Wyman - Last Filed: 04/21/25 12:58> [facility] Disclaimer: The information contained in this section may have been updated after the patient was seen, as this information can be updated by other users. Medical History Abscess of Bartholin's gland with 34 completed weeks gestation premature rupture of membranes Sore throat (viral) Vaginitis affecting , antepartum Rubella non-immune status, antepartum Pre-existing type 2 diabetes mellitus during Advanced maternal age, 1st Maternal obesity affecting , antepartum Thyroid nodule Hyperlipidemia Uterine leiomyoma 1.8 x 1.6 cm fibroid in the anterior aspect of the body of the uterus. 1.5 cm fibroid along the fundus of the uterus. 3.5 cm area of heterogeneous echogenicity in the left aspect of the body of the uterus suggesting a fibroid, possibly pedunculated. CATHY (obstructive sleep apnea) Mild to moderate CATHY, significant symptomatic improvement with CPAP compliance. Type 2 diabetes mellitus Generalized anxiety disorder Surgical History Status post vaginal delivery Hx of bariatric surgery (~04/2023) Family History Grandfather Diabetes Grandmother Diabetes Anemia Thyroid disorder Hypertension Heart attack Family/Other Cancer Uncle Social History Smoking Status: Never smoker alcohol intake: never counseling given: No substance use type: denies use current occupational status: other Travel in the last 8 weeks?: None household members: spouse housing: house marital status: number of children: 0 service: No fci: No leisure activities: exercise Hx Recent Travel: No sexually active: Yes (with her ) Have you lived/traveled outside [place] in past 30 days?: No Contact w/someone who lives/traveled outside US past 30 days?: No Exposure to someone with infectious disease in past 14 days?: No Do you have a fever (greater than 100.4 F or 38 C)?: No Have you tested positive for COVID-19?: No Exposed to someone with COVID-19 in past 14 days?: No Do you have a sore throat?: No Do you have a cough?: No Do you have any weakness?: No Do you have any diarrhea?: No Are you experiencing any unusual bleeding?: No Do you have any muscle aches/pain?: No Do you have any abdominal pain?: No Are you experiencing loss of taste or smell?: No Other Medical History Have you received the Flu Vaccine for this season: No Have you received the Pneumonia Vaccine: Yes <SAKSHI Wyman - Last Filed: 04/21/25 12:58> ROS Obtained: Yes Systems reviewed as appropriate & no additional complaints except as documented Physical Exam <SAKSHI Wyman - Last Filed: 04/21/25 12:58> General General appearance: alert Respiratory Respiratory exam: Present normal lung sounds bilaterally Cardiovascular Cardiovascular exam: Present regular rate Neurological Exam Neurological exam: Present alert and oriented X3 Medical Decision Making <SAKSHI Wyman - Last Filed: 04/21/25 12:58> Medical Records Medical records reviewed: Yes I reviewed the patient's medical records. Screening: Per USPSTF and CDC recommendations, given the prevalence of disease in our region, it is our hospital?s policy to screen for HIV and viral Hepatitis for all patients aged 18 and over and those with ongoing risk factors. Edwin Inquiry Pt receiving controlled substance: No Vital Signs: 04/20/25 20:01 04/20/25 20:51 04/20/25 21:30 Temperature 98.2 F Temperature Source Oral Pulse Rate 79 77 Pulse Rate [Right Radial] 65 Respiratory Rate 20 16 16 Blood Pressure 111/70 99/65 L Blood Pressure [Right Arm] 96/48 L Blood Pressure Mean 73 Blood Pressure Mean [Right Arm] 64 Blood Pressure Source [Right Arm] Automatic Cuff Blood Pressure Position [Right Arm] Sitting 02 Sat by Pulse Oximetry 100 100 100 Oxygen Delivery Method Room Air Room Air 04/20/25 22:00 04/20/25 22:30 04/20/25 23:00 Temperature Temperature Source Pulse Rate 83 85 86 Pulse Rate [Right Radial] Respiratory Rate Blood Pressure 113/68 109/69 L 102/66 L Blood Pressure [Right Arm] Blood Pressure Mean Blood Pressure Mean [Right Arm] Blood Pressure Source [Right Arm] Blood Pressure Position [Right Arm] 02 Sat by Pulse Oximetry 100 100 99 Oxygen Delivery Method 04/20/25 23:30 04/21/25 00:00 04/21/25 00:30 Temperature Temperature Source Pulse Rate 78 86 85 Pulse Rate [Right Radial] Respiratory Rate 16 15 16 Blood Pressure 107/63 L 115/68 110/76 Blood Pressure [Right Arm] Blood Pressure Mean 74 75 86 Blood Pressure Mean [Right Arm] Blood Pressure Source [Right Arm] Blood Pressure Position [Right Arm] 02 Sat by Pulse Oximetry 96 97 98 Oxygen Delivery Method 04/21/25 00:38 Temperature 98 F Temperature Source Pulse Rate 85 Pulse Rate [Right Radial] Respiratory Rate 16 Blood Pressure 110/76 Blood Pressure [Right Arm] Blood Pressure Mean Blood Pressure Mean [Right Arm] Blood Pressure Source [Right Arm] Blood Pressure Position [Right Arm] 02 Sat by Pulse Oximetry Oxygen Delivery Method Room Air Lab Data Lab results reviewed: Yes I reviewed the patient's lab results. Lab Results 04/20/25 20:40: WBC 12.6 H, RBC 4.53, Hgb 9.9 L, Hct 32.9 L, MCV 72.6 L, MCH 21.9 L, MCHC 30.1 L, RDW 15.1, Plt Count 340, MPV 10.9 H, Neut % (Auto) 81.6 H, Lymph % (Auto) 14.5, [place] % (Auto) 3.5, Eos % (Auto) 0.0 L, Baso % (Auto) 0.1, N eut # (Auto) 10.3 H, Lymph # (Auto) 1.8, [place] # (Auto) 0.4, Eos # (Auto) 0.0, Baso # (Auto) 0.0, Sodium 134 L, Potassium 3.8, Chloride 103, Carbon Dioxide 25, Anion Gap 9.8, BUN 12, Creatinine 0.60, Estimated Creat Clear 175, Estimated GFR 114, Est GFR ( Amer) 138, Glucose 185 H, Calcium 9.1, Magnesium 1.8, Total Bilirubin 0.5, AST 44 H, ALT 33, Alkaline Phosphatase 94, Total Protein 7.3, Albumin 3.7, Globulin 3.6 H, Albumin/Globulin Ratio 1.0 L, Lipase 200, Urine Color Yellow, Urine Appearance Clear, Urine pH 6.0, Ur Specific [place] >= 1.030, Urine Protein Trace, Urine Glucose (UA) Negative, Urine Ketones Trace, Urine Blood Trace-i, Urine Nitrate Negative, Urine Bilirubin Negative, Urine Urobilinogen 1.0, Ur Leukocyte Esterase Negative, Urine RBC 3-5, Urine WBC 5-10, Ur Squamous Epith Cells 3-5, Urine Bacteria 2+, Urine HCG, Qual Negative 04/20/25 21:30: Lactate 1.5 04/20/25 20:40 04/20/25 20:40 Orders (Tests/Meds): ED MEDICATIONS Discontinued Medications Generic Name Dose Route Start Last Admin Trade Name Freq PRN Reason Stop Dose Admin Acetaminophen 1,000 mg 04/20/25 20:45 04/20/25 21:04 Acetaminophen 1,000mg/100ml Vial IV 04/20/25 20:46 1,000 mg ONCE ONE Administration Dexamethasone Sodium Phosphate 10 mg 04/20/25 20:45 04/20/25 21:03 Dexamethasone 4mg/Ml 5ml Mdv IV 04/20/25 20:46 10 mg ONCE ONE Administration Diatrizoate Meglum/Diatrizoate Sod 30 ml 04/20/25 21:11 04/20/25 21:14 Diatrizoate Dee 66% & Diatrizoate Na 10% 30ml Udc PO 04/20/25 21:12 30 ml ONCE ONE Administration Sodium Chloride 1,000 mls @ 999 mls/hr 04/20/25 20:45 04/20/25 21:03 Sod Chlor 0.9% 1000ml Bag IV 04/20/25 21:45 999 mls/hr .Q1H1M ONE Administration Iopamidol 75 ml 04/20/25 23:47 04/20/25 23:48 Iopamidol-370 (76%);100ml Bottle IV 04/20/25 23:48 75 ml ONCE ONE Administration Ketorolac Tromethamine 15 mg 04/20/25 20:45 04/20/25 21:03 Ketorolac 30mg/Ml Vial IV 04/20/25 20:46 15 mg ONCE ONE Administration Promethazine HCl 12.5 mg 04/20/25 20:45 04/20/25 21:03 Promethazine Hcl 25mg/Ml 1ml Vial IV 04/20/25 20:46 12.5 mg ONCE ONE Administration Sodium Chloride 25 ml 04/20/25 20:45 04/20/25 21:03 Sodium Chloride 0.9% 25ml Bag IV 04/20/25 20:46 25 ml ONCE ONE Administration Sodium Chloride 10 ml 04/20/25 23:47 04/20/25 23:48 Sodium Chloride 0.9% 10ml Syr (Rad Only) IV 05/20/25 23:46 10 ml NEEDED PRN Administration Maintain IV Site ORDERS Category Date Time Status CT abdomen pelvis w con Stat Cat Scan 04/20/25 20:45 Completed CBC w/Auto Diff [Complete Blood Count Auto Diff] Stat Lab 04/20/25 20:40 Completed CMP [Comprehensive Metabolic Panel] Stat Lab 04/20/25 20:40 Completed Lactic Acid Stat Lab 04/20/25 21:30 Completed Lipase Stat Lab 04/20/25 20:40 Completed Magnesium Stat Lab 04/20/25 20:40 Completed UA [Urinalysis and Microscopic] Stat Lab 04/20/25 20:40 Completed Urine , HCG Qual. Stat Lab 04/20/25 20:40 Completed Urine Culture Stat Micro 04/20/25 20:40 Completed Medical Decision Narrative: In summary patient is a 34-year-old female who presents to the emergency department for evaluation of nausea vomiting diarrhea and abdominal pain. Patient is initially slightly hypotensive with a blood pressure of 96/48 otherwise hemodynamically stable with a pulse of 65 sinus rhythm on the bedside monitor breathing 20 times a minute satting at 100% on room air upon arrival, afebrile at 90.2. Physical exam is remarkable for mild midline abdominal tenderness but there is no rebound or guarding or rigidity. Bowel sounds hyperactive.. Differential diagnosis includes dumping syndrome versus internal hernia versus enteritis or gastroenteritis versus diverticulitis etc. Initial workup will be conducted with hematologic labs urinalysis CT scan abdomen pelvis with oral and IV contrast. Initial interventions include crystalloid bolus and Phenergan. Initial workup reviewed by me shows her hematologic labs significant for white count of 12.6 hemoglobin hematocrit 9.9 and 32.9 respectively with an absolute neutrophil of 10.3, chemistry shows sodium of 134 glucose of 185 AST of 44 lipase of 200 and the remainder of her hematologic labs are nonactionable. Urinalysis shows nitrite and leukocyte Estrace negative and my informal interpretation of her imaging shows no acute processes per radiology read.. Upon repeat evaluation patient is tolerating oral intake. Given this there remains diagnostics uncertainty as to the cause of her symptoms no serious or life-threatening condition was found on her workup today and patient is felt safe for discharge with close follow-up with her PCP for any persistent new or worsening signs or symptoms. <Irving Welsh, - Last Filed: 04/22/25 10:25> Vital Signs: 04/20/25 20:01 04/20/25 20:51 04/20/25 21:30 Temperature 98.2 F Temperature Source Oral Pulse Rate 79 77 Pulse Rate [Right Radial] 65 Respiratory Rate 20 16 16 Blood Pressure 111/70 99/65 L Blood Pressure [Right Arm] 96/48 L Blood Pressure Mean 73 Blood Pressure Mean [Right Arm] 64 Blood Pressure Source [Right Arm] Automatic Cuff Blood Pressure Position [Right Arm] Sitting 02 Sat by Pulse Oximetry 100 100 100 Oxygen Delivery Method Room Air Room Air 04/20/25 22:00 04/20/25 22:30 04/20/25 23:00 Temperature Temperature Source Pulse Rate 83 85 86 Pulse Rate [Right Radial] Respiratory Rate Blood Pressure 113/68 109/69 L 102/66 L Blood Pressure [Right Arm] Blood Pressure Mean Blood Pressure Mean [Right Arm] Blood Pressure Source [Right Arm] Blood Pressure Position [Right Arm] 02 Sat by Pulse Oximetry 100 100 99 Oxygen Delivery Method 04/20/25 23:30 04/21/25 00:00 04/21/25 00:30 Temperature Temperature Source Pulse Rate 78 86 85 Pulse Rate [Right Radial] Respiratory Rate 16 15 16 Blood Pressure 107/63 L 115/68 110/76 Blood Pressure [Right Arm] Blood Pressure Mean 74 75 86 Blood Pressure Mean [Right Arm] Blood Pressure Source [Right Arm] Blood Pressure Position [Right Arm] 02 Sat by Pulse Oximetry 96 97 98 Oxygen Delivery Method 04/21/25 00:38 Temperature 98 F Temperature Source Pulse Rate 85 Pulse Rate [Right Radial] Respiratory Rate 16 Blood Pressure 110/76 Blood Pressure [Right Arm] Blood Pressure Mean Blood Pressure Mean [Right Arm] Blood Pressure Source [Right Arm] Blood Pressure Position [Right Arm] 02 Sat by Pulse Oximetry Oxygen Delivery Method Room Air Lab Data Lab Results 04/20/25 20:40: WBC 12.6 H, RBC 4.53, Hgb 9.9 L, Hct 32.9 L, MCV 72.6 L, MCH 21.9 L, MCHC 30.1 L, RDW 15.1, Plt Count 340, MPV 10.9 H, Neut % (Auto) 81.6 H, Lymph % (Auto) 14.5, [place] % (Auto) 3.5, Eos % (Auto) 0.0 L, Baso % (Auto) 0.1, N eut # (Auto) 10.3 H, Lymph # (Auto) 1.8, [place] # (Auto) 0.4, Eos # (Auto) 0.0, Baso # (Auto) 0.0, Sodium 134 L, Potassium 3.8, Chloride 103, Carbon Dioxide 25, Anion Gap 9.8, BUN 12, Creatinine 0.60, Estimated Creat Clear 175, Estimated GFR 114, Est GFR ( Amer) 138, Glucose 185 H, Calcium 9.1, Magnesium 1.8, Total Bilirubin 0.5, AST 44 H, ALT 33, Alkaline Phosphatase 94, Total Protein 7.3, Albumin 3.7, Globulin 3.6 H, Albumin/Globulin Ratio 1.0 L, Lipase 200, Urine Color Yellow, Urine Appearance Clear, Urine pH 6.0, Ur Specific [place] >= 1.030, Urine Protein Trace, Urine Glucose (UA) Negative, Urine Ketones Trace, Urine Blood Trace-i, Urine Nitrate Negative, Urine Bilirubin Negative, Urine Urobilinogen 1.0, Ur Leukocyte Esterase Negative, Urine RBC 3-5, Urine WBC 5-10, Ur Squamous Epith Cells 3-5, Urine Bacteria 2+, Urine HCG, Qual Negative 04/20/25 21:30: Lactate 1.5 Orders (Tests/Meds): ED MEDICATIONS Discontinued Medications Generic Name Dose Route Start Last Admin Trade Name Freq PRN Reason Stop Dose Admin Acetaminophen 1,000 mg 04/20/25 20:45 04/20/25 21:04 Acetaminophen 1,000mg/100ml Vial IV 04/20/25 20:46 1,000 mg ONCE ONE Administration Dexamethasone Sodium Phosphate 10 mg 04/20/25 20:45 04/20/25 21:03 Dexamethasone 4mg/Ml 5ml Mdv IV 04/20/25 20:46 10 mg ONCE ONE Administration Diatrizoate Meglum/Diatrizoate Sod 30 ml 04/20/25 21:11 04/20/25 21:14 Diatrizoate Dee 66% & Diatrizoate Na 10% 30ml Udc PO 04/20/25 21:12 30 ml ONCE ONE Administration Sodium Chloride 1,000 mls @ 999 mls/hr 04/20/25 20:45 04/20/25 21:03 Sod Chlor 0.9% 1000ml Bag IV 04/20/25 21:45 999 mls/hr .Q1H1M ONE Administration Iopamidol 75 ml 04/20/25 23:47 04/20/25 23:48 Iopamidol-370 (76%);100ml Bottle IV 04/20/25 23:48 75 ml ONCE ONE Administration Ketorolac Tromethamine 15 mg 04/20/25 20:45 04/20/25 21:03 Ketorolac 30mg/Ml Vial IV 04/20/25 20:46 15 mg ONCE ONE Administration Promethazine HCl 12.5 mg 04/20/25 20:45 04/20/25 21:03 Promethazine Hcl 25mg/Ml 1ml Vial IV 04/20/25 20:46 12.5 mg ONCE ONE Administration Sodium Chloride 25 ml 04/20/25 20:45 04/20/25 21:03 Sodium Chloride 0.9% 25ml Bag IV 04/20/25 20:46 25 ml ONCE ONE Administration Sodium Chloride 10 ml 04/20/25 23:47 04/20/25 23:48 Sodium Chloride 0.9% 10ml Syr (Rad Only) IV 05/20/25 23:46 10 ml NEEDED PRN Administration Maintain IV Site ORDERS Category Date Time Status CT abdomen pelvis w con Stat Cat Scan 04/20/25 20:45 Completed CBC w/Auto Diff [Complete Blood Count Auto Diff] Stat Lab 04/20/25 20:40 Completed CMP [Comprehensive Metabolic Panel] Stat Lab 04/20/25 20:40 Completed Lactic Acid Stat Lab 04/20/25 21:30 Completed Lipase Stat Lab 04/20/25 20:40 Completed Magnesium Stat Lab 04/20/25 20:40 Completed UA [Urinalysis and Microscopic] Stat Lab 04/20/25 20:40 Completed Urine , HCG Qual. Stat Lab 04/20/25 20:40 Completed Urine Culture Stat Micro 04/20/25 20:40 Completed Medical Decision Narrative: In summary patient is a 34-year-old female who presents to the emergency department for evaluation of nausea vomiting diarrhea and abdominal pain. Patient is initially slightly hypotensive with a blood pressure of 96/48 otherwise hemodynamically stable with a pulse of 65 sinus rhythm on the bedside monitor breathing 20 times a minute satting at 100% on room air upon arrival, afebrile at 90.2. Physical exam is remarkable for mild midline abdominal tenderness but there is no rebound or guarding or rigidity. Bowel sounds hyperactive.. Differential diagnosis includes dumping syndrome versus internal hernia versus enteritis or gastroenteritis versus diverticulitis etc. Initial workup will be conducted with hematologic labs urinalysis CT scan abdomen pelvis with oral and IV contrast. Initial interventions include crystalloid bolus and Phenergan. Initial workup reviewed by me shows her hematologic labs significant for white count of 12.6 hemoglobin hematocrit 9.9 and 32.9 respectively with an absolute neutrophil of 10.3, chemistry shows sodium of 134 glucose of 185 AST of 44 lipase of 200 and the remainder of her hematologic labs are nonactionable. Urinalysis shows nitrite and leukocyte Estrace negative and my informal interpretation of her imaging shows no acute processes per radiology read.. Upon repeat evaluation patient is tolerating oral intake. Given this there remains diagnostics uncertainty as to the cause of her symptoms no serious or life-threatening condition was found on her workup today and patient is felt safe for discharge with close follow-up with her PCP for any persistent new or worsening signs or symptoms. Attending Attestation: I was consulted by the LEENA, and we discussed the complexity of problems being addressed. I approved the treatment and management plan for this patient's care in the emergency department, thus performing a substantive portion of the medical decision making. I did independently evaluate the patient. She tells me she developed abdominal pain this evening with 2 episodes of diarrhea onset after arrival to the hospital. No fever. Pain is near the periumbilical region. Comorbidities include history of bariatric surgery. Workup included hematologic labs and CT with both oral and IV contrast to ensure she has no evidence of internal hernia. On my personal interpretation she has passage of contrast throughout the GI tract and into the distal colon. Therefore, internal hernia felt to be very unlikely. Official CT read was normal. Refer to note above regarding remainder of workup, which was entirely nonactionable. On my repeat assessment of the patient she tells me her symptoms have completely resolved and she has had no additional diarrhea. She is comfortable with discharge home. I have asked that she follow up with primary care, as her prior bariatric surgery may be contributing to her abdominal cramping and intermittent diarrhea. She acknowledges understanding. At this time all questions were answered and all parties were agreeable with the decision to discharge home. Irving Welsh, DO Critical Care <SAKSHI Wyman - Last Filed: 04/21/25 12:58> Critical Care Time Critical Care Time: No
--- NOTE | 2025-04-20 20:45 | CT_ITS ---
PROCEDURE INFORMATION: Exam: CT Abdomen And Pelvis With Contrast Exam date and time: 04/20/2025 11:44 PM Age: 34 years old Clinical indication: Abdominal pain; Additional info: Iv and oral contrast please acute abd pain nvd TECHNIQUE: Imaging protocol: Computed tomography of the abdomen and pelvis with contrast. Total images: 314 Radiation optimization: All CT scans at this facility use at least one of these dose optimization techniques: automated exposure control; mA and/or kV adjustment per patient size (includes targeted exams where dose is matched to clinical indication); or iterative reconstruction. Contrast material: ISOVUE; Contrast volume: 75 ml; Contrast route: IV; COMPARISON: US OB BIOPHYSICAL PROFILE 12/11/2024 3:43 PM FINDINGS: Lungs: Lung bases are clear. Heart: Normal heart size. Diaphragm: Tiny hiatal hernia. Liver: Mild hepatomegaly at 19.5 cm. Otherwise, unremarkable liver. Gallbladder and biliary ducts: Normal. No calcified stones. No ductal dilation. Pancreas: Normal. No ductal dilation. Spleen: Mild splenomegaly at 14.4 cm. No splenic mass. Adrenal glands: Normal. No mass. Kidneys and ureters: Single 2 mm left intrarenal calculus. Otherwise, unremarkable bilateral kidneys. No ureteral stones. Stomach and bowel: Status post gastric sleeve procedure. Residual stomach is collapsed. Unremarkable duodenum. No ileus or bowel obstruction. Unremarkable small bowel. Oral contrast throughout the colon. Prominent haustration is favored over mild sigmoid diverticulosis. Otherwise, unremarkable colon. Collapsed rectum. Appendix: Normal appendix. Intraperitoneal space: No ascites. No free air. Vasculature: Nonaneurysmal abdominal aorta. Major abdominal vessels enhance appropriately. Lymph nodes: Unremarkable. No enlarged lymph nodes. Urinary bladder: Unremarkable as visualized. Reproductive: Fibroid uterus. Nonenlarged ovaries. Small quantity free pelvic fluid. No discrete adnexal mass. Bones/joints: Moderate degenerative changes lower thoracic spine. Mild degenerative changes bilateral hips and SI joints. Soft tissues: Tiny fat containing umbilical hernia. Diastasis of the rectus fascia. IMPRESSION: 1. No acute intra-abdominal or pelvic process. 2. Mild hepatosplenomegaly. 3. 2 mm left intrarenal calculus. No hydronephrosis. 4. Status post gastric sleeve. 5. Additional chronic and incidental findings
[2025-04-20 21:01] LABS: Microscopic, Urine URINE MICROSCOPIC (MICROSCOPIC)
[2025-04-20] MEDS: DEXAMETHASONE 4MG/ML 5ML MDV 10 MG IV (21:03)
[2025-04-20] MEDS: 0.9 % SODIUM CHLORIDE 1000ML 1,000 ML 999 ML IV (21:03)
[2025-04-20] MEDS: SODIUM CHLORIDE 0.9% 25ML BAG 25 ML IV (21:03)
[2025-04-20] MEDS: KETOROLAC 30MG/ML VIAL 15 MG IV (21:03)
[2025-04-20] MEDS: PROMETHAZINE HCL 25MG/ML 1ML VIAL 12.5 MG IV (21:03)
[2025-04-20] MEDS: ACETAMINOPHEN 1,000MG/100ML VIAL 1000 MG IV (21:04)
[2025-04-20 21:08] LABS: Color,Urine YELLOW (Yellow); Glucose,Urine (UA) Negative (Negative); Ketones,Urine TRACE (Negative); Leukocyte Esterase,Urine Negative (Negative); PH,Urine 6.0 (5.0-8.5); Protein,Urine TRACE (Negative); Specific Gravity, Urine >= 1.030 (1.005-1.030); Urobilinogen,Urine 1.0 EU/dl (0.2)
[2025-04-20 21:10] LABS: Hematocrit 32.9 % (37.0-47.0); Hemoglobin 9.9 g/dL (12.2-16.2); Immature Granulocytes % 0.3 %; Mean Corpuscular HGB Conc 30.1 g/dL (31.8-35.4); Mean Corpuscular Hemoglobin 21.9 pg (27.0-31.2); Mean Corpuscular Volume 72.6 fl (81-99); Nucleated Red Blood Cells % 0 %; Platelet Count 340 K/mm3 (142-424); Red Blood Count 4.53 M/mm3 (4.20-5.40); Red Cell Distribution Width-SD 39.8 fL; White Blood Count 12.6 K/mm3 (4.8-10.8)
[2025-04-20 21:12] LABS: Bilirubin,Urine Negative (Negative)
[2025-04-20] MEDS: DIATRIZOATE MEG 66% & DIATRIZOATE NA 10% 30ML UDC 30 ML PO (21:14)
[2025-04-20 21:36] LABS: Albumin Level 3.7 g/dl (3.5-5.0); Chloride 103 mmol/L (98-107); Potassium 3.8 mmoL/L (3.5-5.1); Sodium 134 mmol/L (136-145)
[2025-04-20 21:38] LABS: Urine Pregnancy, HCG Qual. Negative (Negative)
[2025-04-20 21:39] LABS: Alanine Aminotransferase 33 U/L (12-78); Albumin/Globulin Ratio 1.0 (1.1-1.8); Alkaline Phosphatase 94 U/L (38-126); Anion Gap 9.8 mEq/L (5-15); Aspartate Amino Transferase 44 U/L (14-36); Bilirubin,Total 0.5 mg/dl (0.2-1.3); Blood Urea Nitrogen 12 mg/dl (7-17); Calcium 9.1 mg/dl (8.4-10.2); Carbon Dioxide 25 mmol/L (22.0-30.0); Creatinine Clearance Estimated 175 mL/min (50-200); Creatinine,Serum 0.60 mg/dl (0.52-1.04); Estimated Glomerular Filt Rate 114 ml/min (>60); GFR (African American) 138 ML/MIN (>60); Globulin 3.6 g/dL (1.3-3.2); Glucose 185 mg/dl (74-100); Lipase 200 U/L (23-300); Total Protein,Serum 7.3 g/dl (6.3-8.2)
[2025-04-20 21:40] LABS: Magnesium 1.8 mg/dl (1.6-2.3)
[2025-04-20 21:41] LABS: Bacteria,Urine 2+ /lpf
[2025-04-20] MEDS: IOPAMIDOL-370 (76%);100ML BOTTLE 75 ML IV (23:48)
[2025-04-20] MEDS: SODIUM CHLORIDE 0.9% 10ML SYR (RAD ONLY) 10 ML IV (23:48)
[2025-04-21] VITALS: BP 115/68; PULSE 86; RESP 15; O2SAT 97
[2025-04-21 00:30] VITALS: BP 110/76; PULSE 85; RESP 16; O2SAT 98
[2025-04-21 00:38] VITALS: BP 110/76; PULSE 85; RESP 16; TEMP 36.6; O2SAT 98
--- NOTE | 2025-04-22 08:17 | PC.NURSE ---
Urine culture results reviewed by Dr. Calix. No new orders received.
== END 2025-04-21 00:44 | disposition home or self-care (01) ==
PROVIDERS: Physician Assistant; Emergency Provider Student in an Organized Health Care Education/Training Program; PCP Nurse Practitioner
DX: R10.9 Unspecified abdominal pain (principal); E11.9 Type 2 diabetes mellitus without complications; G47.33 Obstructive sleep apnea (adult) (pediatric); F41.1 Generalized anxiety disorder
CPT/HCPCS: 74177; 80053; 81001; 81025; 83605; 83690; 83735; 85025; 87086; 96361; 96374; 96375; 99285; J0131; J1100; J1885; J2550; J7030; Q9963; Q9967

== ENCOUNTER 2025-04-28 10:56 | Outpatient (CLI) | payer OTHER, SELFPAY ==
[2025-04-28 18:41] LABS: Influenza A, PCR Not Detected (NotDetected); Influenza B, PCR Not Detected (NotDetected)
[2025-04-28 23:37] LABS: Coronavirus 19, PCR Detected (NotDetected)
--- OUTSIDE RECORDS SUMMARY | 2025-04-29 11:05 | XMS_ITS | Clinical Summary ---
[facility] Organization [facility] Address [address] [place] [address] Care Team Providers Care Car Changer Name Role Phone Provider, No Known Primary Care Provider Unavail able Allergies Active Allergy Reactions Criticality Noted Date Comments Aspirin Rash Low 07/06/2024 SALICYLIC ACID Benzoyl Peroxide Rash Low 10/18/2023 Medications ARIPiprazole (ABILIFY) 10 MG tablet Take 1 tablet by mouth every night at bedtime. 06/14/20 24 Active rizatriptan BUSINESS OFFICE DIRECTOR (MAXALT-BUSINESS OFFICE DIRECTOR) [address] 1 tablet [...] mouth Daily. Active Insulin Pen Needle (Pen [place]) 31G X 5 MM miscIndications:Ty pe 2 [...] 2 diabetes mellitus in , third tri [facility] 07/09/2024 Assessment & Plan (11/02/2024 8:19 [...] drink = 0.6 oz pur e alcohol) [facility] Utilities Answer Date Recorded In the [...] things needed for daily living? No 12/12/2024 [place] Depression Scale Answer Date Recorded [place] Depression Scale Total 0 12/24/2024 The thought [...] GED or equivalent No 12/12/2024 Preferred Language Kenyan 12/12/2024 PHQ-2 Answer Date Recorded Patient Health [...] External Hepatitis C Ab non-reacti ve Blood [facility] Provider LAB BLOOD ORDERABLES Joan l Result from Last 3 Months or Most Recently Relevant to Health Maintenance Insurance TIMA FLOOD [id number] Advance Directives Documents on File Type Date Recorded Patient Senior Branch Manager Expl anation LIVING WILL - SCAN 11/02/2024 [...] Of Support Discussed With: Patient Care Teams Car Changer Relationship Specialty Start Date End Date Provider, [place] [address] PCP - General 06/15/24
--- OUTSIDE RECORDS SUMMARY | 2025-04-29 11:05 | XMS_ITS | Encounter Summary ---
[facility] Address [address] [place] [address] Care Team Providers Care Room Service Associate Name Role Phone Provider, No Known Primary Care Provider Unavail able Encounter Details Date Type Department Care Team (Late st Contact Info) Description 12/11/2024 Medication Therapy Management [facility] MATERNAL MEDICINE [address] [phone] Yi Kiran MD [address] [place] [address] Social History Tobacco Use Types Packs/Day Years Used Date Smoking Tobacco: Former Cigarettes Smokeless Tobacco: Never Alcohol Use Standard Drinks/Week Comments Not Currently 0 (1 standard drink = 0.6 oz pur e alcohol) [facility] Utilities Answer Date Recorded In the past 12 months has [employer], [employer], oil, or water Proficiency threatened to shut off services in your [...] and heating? Not hard at all 12/12/2024 [facility] [place] [facility] - Occupational Stress Questionnaire Answer Date [...] things needed for daily living? No 12/12/2024 [place] Depression Scale Answer Date Recorded [place] Depression Scale Total 6 12/13/2024 The thought [...] GED or equivalent No 12/12/2024 Preferred Language German 12/12/2024 PHQ-2 Answer Date Recorded Patient Health [...] 12:58 PM EDT Key Christian RN * Dickinson Suicide Severity Rating Scale (Screener/Recent Self-Report) Question Answer Date of Assessment Author 6. Suicidal Behavior (Lifetime) No 12:58 PM JOLIET Key Christian RN * Question Answer Date of Assessment Author Little interest or pleasure in doing things Not at all 12/12/2024 1:07 PM JOLIET Key Christian RN Feeling down, depressed, or hopeless Several days 12/12/2024 1:07 PM EDT Key Christain RN documented as of this encounter Plan of Treatment Not on file documented as of this encounter Visit Diagnoses Not on filedocumented in this encounter Care Teams Room Service Associate Relationship Specialty Start Date End Date Provider, [place] [address] PCP - General 06/15/24 documented as of this encounter
--- OUTSIDE RECORDS SUMMARY | 2025-04-29 11:05 | XMS_ITS | Encounter Summary ---
Author Organization [facility] [place] [address] Care Team Providers Care Information Systems Administrator Name Role Phone Mary Powers Primary Care Provider [phone] Encounter Details Date Type Department Care Team (Late st Contact Info) Description 07/16/2019 Lab Requisition [facility] [place] [address] Adela Villalba, [facility] [address] [facility] [place] [place] [address] Other snf (current) drug therapy; Acne vulgaris Social History [...] QUANTITATIVE Routine 07/16/2019 3:31 PM EDT Other snf (current) drug therapy Acne vulgaris TRIGLYCERIDES Routine 07/16/2019 3:31 PM EDT Other snf (current) drug therapy Acne vulgaris CHOLESTEROL TOTAL Routine 07/16/2019 3:3 1 PM EDT Other snf (current) drug therapy Acne vulgaris HEPATIC FUNCTION PANEL Routine 10/24/201 9 3:31 PM EDT Other ocean transportation intermediary (current) drug therapy Acne vulgaris documented in [...] 3:31 PM EDT 07/16/2019 6:31 PM EDT [employer] [facility] CHEMISTRY ORDERABLES Fi nal Result [facility], [facility] [address] [facility] , [place] [address] * (ABNORMAL) TRIGLYCERIDES (07/16/2019 3:31 PM EDT) Triglyceride 425(H) <=150 mg/dL 07/16/2019 7:48 PM EDT [facility] Comment: < 150 Normal 150 - 199 Borderline High 200 - 499 High >= 500 Very High Blood VENOUS BLOOD / Unknown 07/16/2019 3:31 PM EDT 07/16/2019 6:31 PM EDT [employer] EARLY LEARNING TEACHER CHEMISTRY ORDERABLES Fi nal Result Performing Organization Address City/[facility]/ZIP Co de Phone Number [email or web address] [address] [facility] , [place] [address] * HUMAN CHORIONIC GONADOTROPIN QUANTITATIVE (07/16/2019 3:31 PM EDT) Hcg Quant <1 mIU/mL 07/16/2019 7:3 9 PM EDT [facility] [employer] Blood VENOUS BLOOD / Unknown 07/16/2019 3:31 PM EDT 07/16/2019 6:31 PM EDT Narrative PREFERRED [employer] - 07/16/2019 7:39 PM EDT < 5 [...] interfere with this immunoassay test. Adela Morton [employer] EARLY LEARNING TEACHER CHEMISTRY ORDERABLES Fi nal Result Performing Organization Address [facility] Co de Phone Number [employer] [facility] [address] [facility] , [place] [address] * CHOLESTEROL TOTAL (07/16/2019 3:31 PM EDT) Cholesterol 101 <=200 mg/dL 07/16/2019 7:39 PM EDT [email or web address] Comment: < 200 Desirable 200 - 239 Borderline High >= 240 High Blood VENOUS BLOOD / Unknown 07/16/2019 3:31 PM EDT 07/16/2019 6:31 PM EDT Adela Morton [employer] EARLY LEARNING TEACHER CHEMISTRY ORDERABLES Fi nal Result Performing Organization Address City/[facility] Co de Phone Number [employer] [facility] [address] [facility] , [place] [address] documented in this encounter Visit Diagnoses Diagnosis Other snf (current) drug therapy Acne vulgaris Other acne documented in this encounter Care Teams Information Systems Administrator Relationship Specialty Start Date End Date Mary Powers [address] [facility] [address] [place] [address] PCP - General Family Medicine 06/23/18 documented as of this encounter
--- OUTSIDE RECORDS SUMMARY | 2025-04-29 11:05 | XMS_ITS | Encounter Summary ---
Author Organization [facility] [place] [place] [address] Care Team Providers Care Civil Rights Attorney Name Role Phone Mary Powers Primary Care Provider [phone] Encounter Details Date Type Department Care Team (Late st Contact Info) Description 03/09/2019 Lab Requisition [facility] [place] [address] Adela Villalba, [facility] [address] [facility] [place] [address] Acne vulgaris; Other exterminator (current) drug therapy Social History Tobacco Use [...] 03/09/2019 3:39 PM EDT Acne vulgaris Other halfway (current) drug therapy TRIGLYCERIDES Routine 03/09/2019 3:39 PM EDT Acne vulgaris Other halfway (current) drug therapy CHOLESTEROL TOTAL Routine 03/09/2019 3:3 9 PM EDT Acne vulgaris Other halfway (current) drug therapy HEPATIC FUNCTION PANEL Routine 06/17/201 9 3:39 PM EDT Acne vulgaris Other exterminator (current) drug therapy documented in this [...] 3:39 PM EDT 03/09/2019 6:39 PM EDT [employer] [facility] CHEMISTRY ORDERABLES Fi nal Result [facility], [facility] [address] [facility] , [place] [address] * (ABNORMAL) TRIGLYCERIDES (03/09/2019 3:39 PM EDT) Triglyceride 355(H) <=150 mg/dL 03/09/2019 8:29 PM EDT [facility] Comment: < 150 Normal 150 - 199 Borderline High 200 - 499 High >= 500 Very High Blood VENOUS BLOOD / Unknown 03/09/2019 3:39 PM EDT 03/09/2019 6:39 PM EDT [employer] FIREBRICK LAYER HELPER CHEMISTRY ORDERABLES Fi nal Result Performing Organization Address City/[facility] Co de Phone Number [employer] [address] [facility] , [place] [address] * HUMAN CHORIONIC GONADOTROPIN QUANTITATIVE (03/09/2019 3:39 PM EDT) Hcg Quant <1 mIU/mL 03/09/2019 8:1 1 PM EDT [facility] Blood VENOUS BLOOD / Unknown 03/09/2019 3:39 PM EDT 03/09/2019 6:39 PM EDT Narrative [facility] [employer] - 03/09/2019 8:11 PM EDT < 5 [...] interfere with this immunoassay test. Adela Villalba FIREBRICK LAYER HELPER CHEMISTRY ORDERABLES Fi nal Result Performing Organization Address [facility] Co de Phone Number [facility] Mailbox [facility] [address] [facility] , [place] [address] * CHOLESTEROL TOTAL (03/09/2019 3:39 PM EDT) Cholesterol 146 <=200 mg/dL 03/09/2019 8:29 PM EDT [employer] Comment: < 200 Desirable 200 - 239 Borderline High >= 240 High Blood VENOUS BLOOD / Unknown 03/09/2019 3:39 PM EDT 03/09/2019 6:39 PM EDT Adela Morton [place] FIREBRICK LAYER HELPER CHEMISTRY ORDERABLES Fi nal Result Performing Organization Address [facility] Co de Phone Number [employer] [facility] [address] [facility] , [place] [address] documented in this encounter Visit Diagnoses Diagnosis Acne vulgaris Other acne Other halfway (current) drug therapy documented in this encounter Care Teams Civil Rights Attorney Relationship Specialty Start Date End Date Mary Powers [address] [facility] [address] [place] [address] PCP - General Family Medicine 06/23/18 documented as of this encounter
--- OUTSIDE RECORDS SUMMARY | 2025-04-29 11:05 | XMS_ITS | Clinical Summary ---
Author Organization [facility] [place] Address [address] [place] [phone] Phone Care Team Providers Care Cutter Head Sharpener Name Role Phone Mary Powers Primary Care Provider [phone] Social History Tobacco Use Types Packs/Day Years [...] age to complete this topic Care Teams Cutter Head Sharpener Relationship Specialty Start Date End Date Mary Powers [address] [facility] [address] [place] [address] PCP - General Family Medicine 06/23/18
--- OUTSIDE RECORDS SUMMARY | 2025-04-29 11:05 | XMS_ITS | Encounter Summary ---
Author Organization [facility] [place] [address] Care Team Providers Care Protective Signal Repairer Helper Name Role Phone Mary Powers Primary Care Provider [phone] Encounter Details Date Type Department Care Team (Late st Contact Info) Description 05/13/2019 Lab Requisition [facility] [place] [address] Adela Villalba, [facility] [address] [facility] [place] [address] Acne vulgaris; Other continuous churn buttermaker (current) drug therapy Social History Tobacco Use [...] 05/13/2019 3:30 PM EDT Acne vulgaris Other mcc (current) drug therapy TRIGLYCERIDES Routine 05/13/2019 3:30 PM EDT Acne vulgaris Other mcc (current) drug therapy CHOLESTEROL TOTAL Routine 05/13/2019 3:3 0 PM EDT Acne vulgaris Other mcc (current) drug therapy HEPATIC FUNCTION PANEL Routine 08/21/201 9 3:30 PM EDT Acne vulgaris Other continuous churn buttermaker (current) drug therapy documented in this encounter [...] 3:30 PM EDT 05/13/2019 6:49 PM EDT [facility] CHEMISTRY ORDERABLES Fi nal Result [facility], [facility] [address] [facility] , [place] [address] * (ABNORMAL) TRIGLYCERIDES (05/13/2019 3:30 PM EDT) Triglyceride 387(H) <=150 mg/dL 05/13/2019 8:07 PM EDT [facility] Comment: < 150 Normal 150 - 199 Borderline High 200 - 499 High >= 500 Very High Blood VENOUS BLOOD / Unknown 05/13/2019 3:30 PM EDT 05/13/2019 6:49 PM EDT [facility] [facility] SPINNING MULE TENDER CHEMISTRY ORDERABLES Fi nal Result Performing Organization Address City/[facility] Co de Phone Number [employer] [facility] [address] [facility] , [place] [address] * HUMAN CHORIONIC GONADOTROPIN QUANTITATIVE (05/13/2019 3:30 PM EDT) Hcg Quant <1 mIU/mL 05/13/2019 8:1 1 PM [address] [facility] [employer] [facility] Blood VENOUS BLOOD / Unknown 05/13/2019 3:30 PM EDT 05/13/2019 6:49 PM EDT Narrative [facility] VR1 - 05/13/2019 8:11 PM EDT < 5 [...] interfere with this immunoassay test. Adela Villalba SPINNING MULE TENDER CHEMISTRY ORDERABLES Fi nal Result Performing Organization Address [facility] Co de Phone Number [facility] [employer] [facility] [address] [facility] , [place] [address] * CHOLESTEROL TOTAL (05/13/2019 3:30 PM EDT) Cholesterol 118 <=200 mg/dL 05/13/2019 8:07 PM EDT [employer] [facility] Comment: < 200 Desirable 200 - 239 Borderline High >= 240 High Blood VENOUS BLOOD / Unknown 05/13/2019 3:30 PM EDT 05/13/2019 6:49 PM EDT Adela Morton [place] SPINNING MULE TENDER CHEMISTRY ORDERABLES Fi nal Result Performing Organization Address [facility] Co de Phone Number [employer] [facility] [address] [facility] , [place] [address] documented in this encounter Visit Diagnoses Diagnosis Acne vulgaris Other acne Other mcc (current) drug therapy documented in this encounter Care Teams Protective Signal Repairer Helper Relationship Specialty Start Date End Date Mary Powers [address] [facility] [address] [place] [address] PCP - General Family Medicine 06/23/18 documented as of this encounter
--- OUTSIDE RECORDS SUMMARY | 2025-04-29 11:05 | XMS_ITS | Encounter Summary ---
[facility] Organization [facility] Address [address] [place] [address] Care Team Providers Care Motion Graphics Designer Name Role Phone Provider, No Known Primary Care Provider Unavail able Encounter Details Date Type Department Care Team (Late st Contact Info) Description 12/11/2024 Medication Therapy Management [facility] MATERNAL MEDICINE [address] [phone] Yi Kiran MD [address] [place] [address] Type 2 diabetes mellitus in , third trimester Social History Tobacco Use Types Packs/Day Years Used Date Smoking Tobacco: Former Cigarettes Smokeless Tobacco: Never Alcohol Use Standard Drinks/Week Comments Not Currently 0 (1 standard drink = 0.6 oz pur e alcohol) [facility] Utilities Answer Date Recorded In the past 12 months has Self-A-r-T, gas, oil, or water Privy threatened to shut off services in your [...] and heating? Not hard at all 12/12/2024 [facility] [place] [facility] [place] - Occupational Stress Questionnaire Answer Date Recorded [...] things needed for daily living? No 12/12/2024 [place] Depression Scale Answer Date Recorded [place] Depression Scale Total 6 12/13/2024 The thought [...] GED or equivalent No 12/12/2024 Preferred Language Beninese 12/12/2024 PHQ-2 Answer Date Recorded Patient Health [...] 12:58 PM EDT Key Christian RN * Graves Suicide Severity Rating Scale (Screener/Recent Self-Report) Question [...] trimester documented in this encounter Care Teams Motion Graphics Designer Relationship Specialty Start Date End Date Provider, [place] [address] PCP - General 06/15/24 documented as of this encounter
--- OUTSIDE RECORDS SUMMARY | 2025-04-29 11:05 | XMS_ITS | Encounter Summary ---
Author Organization [facility] [address] Care Team Providers Care Hat And Cap Sewer Name Role Phone Mary Powers Primary Care Provider [phone] Encounter Details Date Type Department Care Team (Late st Contact Info) Description 02/05/2019 Lab Requisition [facility]G LAB[facility]ATORY [facility] [place] [address] Adela Villalba, [facility] [address] [facility] [place] [address] Other detention (current) drug therapy; Acne vulgaris Social History [...] QUANTITATIVE Routine 02/05/2019 4:00 PM EDT Other detention (current) drug therapy Acne vulgaris TRIGLYCERIDES Routine 02/05/2019 4:00 PM EDT Other detention (current) drug therapy Acne vulgaris CHOLESTEROL TOTAL Routine 02/05/2019 4:0 0 PM EDT Other detention (current) drug therapy Acne vulgaris HEPATIC FUNCTION PANEL Routine 05/16/201 9 4:00 PM EDT Other assistant terminal manager (current) drug therapy Acne vulgaris documented in [...] 4:00 PM EDT 02/05/2019 7:03 PM EDT [facility] CHEMISTRY ORDERABLES Fi nal Result [facility], [facility] [address] [facility] , [place] [address] * (ABNORMAL) TRIGLYCERIDES (02/05/2019 4:00 PM EDT) Triglyceride 238(H) <=150 mg/dL 02/05/2019 10:03 PM EDT [facility] Comment: < 150 Normal 150 - 199 Borderline High 200 - 499 High >= 500 Very High Blood VENOUS BLOOD / Unknown 02/05/2019 4:00 PM EDT 02/05/2019 7:03 PM EDT [facility] GAS OPERATOR CHEMISTRY ORDERABLES Fi nal Result Performing Organization Address City/[facility] Co de Phone Number [facility] [address] [facility] , [place] [address] * HUMAN CHORIONIC GONADOTROPIN QUANTITATIVE (02/05/2019 4:00 PM EDT) Hcg Quant <1 mIU/mL 02/05/2019 9:5 4 PM EDT [facility] [employer] Blood VENOUS BLOOD / Unknown 02/05/2019 4:00 PM EDT 02/05/2019 7:03 PM EDT Narrative [facility] [employer] - 02/05/2019 9:54 PM EDT < 5 [...] interfere with this immunoassay test. Adela Morton [place] GAS OPERATOR CHEMISTRY ORDERABLES Fi nal Result Performing Organization Address [facility] Co de Phone Number wedgies [facility] [address] [facility] , [place] [address] * CHOLESTEROL TOTAL (02/05/2019 4:00 PM EDT) Cholesterol 114 <=200 mg/dL 02/05/2019 10:03 PM EDT [facility] Comment: < 200 Desirable 200 - 239 Borderline High >= 240 High Blood VENOUS BLOOD / Unknown 02/05/2019 4:00 PM EDT 02/05/2019 7:03 PM EDT Adela Morton [place] GAS OPERATOR CHEMISTRY ORDERABLES Fi nal Result Performing Organization Address City/[facility] Co de Phone Number wedgies [facility] [address] [facility] , [place] [address] documented in this encounter Visit Diagnoses Diagnosis Other detention (current) drug therapy Acne vulgaris Other acne documented in this encounter Care Teams Hat And Cap Sewer Relationship Specialty Start Date End Date Mary Powers [address] [facility] [address] [place] [address] PCP - General Family Medicine 06/23/18 documented as of this encounter
--- OUTSIDE RECORDS SUMMARY | 2025-04-29 11:05 | XMS_ITS | Encounter Summary ---
Author Organization [facility] [place] [address] Care Team Providers Care Stage Set Up Worker Name Role Phone Mary Powers Primary Care Provider [phone] Encounter Details Date Type Department Care Team (Late st Contact Info) Description 06/16/2019 Lab Requisition [facility] LAB[facility] [place] [address] Adela Villalba, [facility] [address] [place] [address] Other skilled nursing (current) drug [...] Routine 09/24/201 9 4:00 PM EDT Other grit removal operator (current) drug therapy Acne vulgaris documented in this encounter Results * (ABNORMAL) TRIGLYCERIDES (06/16/2019 4:00 PM EDT) Pathologist [facility] Triglyceride 529(H) <=150 mg/dL 06/16/2019 8:18 PM EDT [facility] [employer] Comment: < 150 Normal 150 - 199 Borderline High 200 - 499 High >= 500 Very High Blood VENOUS BLOOD / Unknown 06/16/2019 4:00 PM EDT 06/16/2019 6:55 PM EDT [employer] [facility] CHEMISTRY ORDERABLES Fi nal Result Performing Organization Address [facility] Phone Number [facility] [employer] [address] , [place] [address] * HUMAN CHORIONIC GONADOTROPIN QUANTITATIVE (06/16/2019 4:00 PM EDT) [facility] Hcg Quant <1 mIU/mL 06/16/2019 8:3 6 PM EDT [facility] [employer] Blood VENOUS BLOOD / Unknown 06/16/2019 4:00 PM EDT 06/16/2019 6:55 PM EDT Narrative [facility] [employer] - 06/16/2019 8:36 PM EDT < 5 [...] sample can interfere with this immunoassay test. [employer] [facility] CHEMISTRY ORDERABLES Fi nal Result Performing Organization Address [facility] de Phone Number [facility] [employer] [address] [place] [address] * CHOLESTEROL TOTAL (06/16/2019 4:00 PM EDT) Cholesterol 122 <=200 mg/dL 06/16/2019 8:13 PM EDT [facility] Comment: < 200 Desirable 200 - 239 Borderline High >= 240 High Blood VENOUS BLOOD / Unknown 06/16/2019 4:00 PM EDT 06/16/2019 6:55 PM EDT [employer] [facility] CHEMISTRY ORDERABLES Fi nal Result Performing Organization Address City/[facility] Co de Phone Number [facility], [facility] [address] [facility] , [place] [address] * HEPATIC FUNCTION PANEL (06/16/2019 [...] 4:00 PM EDT 06/16/2019 6:55 PM EDT [employer] EXPERIMENTAL MACHINING LAB MANAGER CHEMISTRY ORDERABLES Fi nal Result Performing Organization Address City/[facility] Co de Phone Number [facility] [employer], [facility] [address] [facility] , [place] [address] documented in this encounter Visit Diagnoses Diagnosis Other skilled nursing (current) drug therapy Acne vulgaris Other acne documented in this encounter Care Teams Stage Set Up Worker Relationship Specialty Start Date End Date Mary Powers [address] [facility] [address] [place] [address] PCP - General Family Medicine 06/23/18 documented as of this encounter
--- OUTSIDE RECORDS SUMMARY | 2025-04-29 11:05 | XMS_ITS | Encounter Summary ---
Author Organization [place] [address] Care Team Providers Care Customer Orders Clerk Name Role Phone Mary Powers Primary Care Provider [phone] Encounter Details Date Type Department Care Team (Late st Contact Info) Description 04/09/2019 Lab Requisition [facility] LAB[facility]ATORY [facility] [place] [address] Adela Villalba, [facility] [address] [facility] [place] [address] Acne vulgaris; Other tank terminal gauger (current) drug therapy Social History Tobacco Use [...] 04/09/2019 4:00 PM EDT Acne vulgaris Other fdc (current) drug therapy TRIGLYCERIDES Routine 04/09/2019 4:00 PM EDT Acne vulgaris Other fdc (current) drug therapy CHOLESTEROL TOTAL Routine 04/09/2019 4:0 0 PM EDT Acne vulgaris Other fdc (current) drug therapy HEPATIC FUNCTION PANEL Routine 07/18/201 9 4:00 PM EDT Acne vulgaris Other tank terminal [...] 4:00 PM EDT 04/09/2019 7:28 PM EDT [place] CHEMISTRY ORDERABLES Fi nal Result [facility], [facility] [address] [facility] , [place] [address] * (ABNORMAL) TRIGLYCERIDES (04/09/2019 4:00 PM EDT) Triglyceride 329(H) <=150 mg/dL 04/09/2019 9:07 PM EDT [facility] Comment: < 150 Normal 150 - 199 Borderline High 200 - 499 High >= 500 Very High Blood VENOUS BLOOD / Unknown 04/09/2019 4:00 PM EDT 04/09/2019 7:28 PM EDT [place] FIXTURE DESIGNER CHEMISTRY ORDERABLES Fi nal Result Performing Organization Address City/[facility] Co de Phone Number [employer] [address] [facility] , [place] [address] * HUMAN CHORIONIC GONADOTROPIN QUANTITATIVE (04/09/2019 4:00 PM EDT) Hcg Quant <1 mIU/mL 04/09/2019 9:1 0 PM EDT [facility] [employer] [facility] Blood VENOUS BLOOD / Unknown 04/09/2019 4:00 PM EDT 04/09/2019 7:28 PM EDT Narrative [facility] [employer] - 04/09/2019 9:10 PM EDT < 5 [...] interfere with this immunoassay test. Adela Morton [place] TEST FIXTURE DESIGNER CHEMISTRY ORDERABLES Fi nal Result Performing Organization Address [facility] Co de Phone Number [facility] [employer] [facility] [address] [facility] , [place] [address] * CHOLESTEROL TOTAL (04/09/2019 4:00 PM EDT) Cholesterol 107 <=200 mg/dL 04/09/2019 9:07 PM EDT [employer] Comment: < 200 Desirable 200 - 239 Borderline High >= 240 High Blood VENOUS BLOOD / Unknown 04/09/2019 4:00 PM EDT 04/09/2019 7:28 PM EDT Adela Morton [place] TEST FIXTURE DESIGNER CHEMISTRY ORDERABLES Fi nal Result Performing Organization Address [facility] Co de Phone Number [email or web address] [facility] [address] [facility] , [place] [address] documented in this encounter Visit Diagnoses Diagnosis Acne vulgaris Other acne Other fdc (current) drug therapy documented in this encounter Care Teams Customer Orders Clerk Relationship Specialty Start Date End Date Mary Powers [address] [facility] [address] [place] [address] PCP - General Family Medicine 06/23/18 documented as of this encounter
--- OUTSIDE RECORDS SUMMARY | 2025-04-29 11:05 | XMS_ITS | Encounter Summary ---
Author Organization [facility] [place] [address] Care Team Providers Care Wharf Helper Name Role Phone Mary Powers Primary Care Provider [phone] Encounter Details Date Type Department Care Team (Late st Contact Info) Description 01/05/2019 Lab Requisition [facility] LABORATORY [facility] [place] [address] Adela Villalba, [facility] [address] [place] [address] Acne vulgaris; Other terminal supervisor (current) drug therapy Social History Tobacco Use [...] 01/05/2019 3:18 PM EDT Acne vulgaris Other fdc (current) drug therapy TRIGLYCERIDES Routine 01/05/2019 3:18 PM EDT Acne vulgaris Other fdc (current) drug therapy CHOLESTEROL TOTAL Routine 01/05/2019 3:1 8 PM EDT Acne vulgaris Other fdc (current) drug therapy HEPATIC FUNCTION PANEL Routine 04/15/201 9 3:18 PM EDT Acne vulgaris Other terminal supervisor (current) drug therapy documented in this encounter [...] 3:18 PM EDT 01/05/2019 7:18 PM EDT [employer] [facility] CHEMISTRY ORDERABLES Fi nal Result [facility], [facility] [address] [facility] , [place] [address] * (ABNORMAL) TRIGLYCERIDES (01/05/2019 3:18 PM EDT) Triglyceride 159(H) <=150 mg/dL 01/05/2019 9:02 PM EDT [facility] Comment: < 150 Normal 150 - 199 Borderline High 200 - 499 High >= 500 Very High Blood VENOUS BLOOD / Unknown 01/05/2019 3:18 PM EDT 01/05/2019 7:18 PM EDT [facility] SPINNING FRAME FIXER CHEMISTRY ORDERABLES Fi nal Result Performing Organization Address City/[facility] Co de Phone Number [facility] [address] [facility] , [place] [address] * HUMAN CHORIONIC GONADOTROPIN QUANTITATIVE (01/05/2019 3:18 PM EDT) Hcg Quant <1 mIU/mL 01/05/2019 9:0 0 PM EDT [facility] Blood VENOUS BLOOD / Unknown 01/05/2019 3:18 PM EDT 01/05/2019 7:18 PM EDT Narrative [facility] - 01/05/2019 9:00 PM EDT < 5 [...] interfere with this immunoassay test. Adela Morton [place] SPINNING FRAME FIXER CHEMISTRY ORDERABLES Fi nal Result Performing Organization Address [facility] Co de Phone Number [facility] [address] [facility] , [place] [address] * CHOLESTEROL TOTAL (01/05/2019 3:18 PM EDT) Cholesterol 107 <=200 mg/dL 01/05/2019 9:02 PM EDT [facility] Comment: < 200 Desirable 200 - 239 Borderline High >= 240 High Blood VENOUS BLOOD / Unknown 01/05/2019 3:18 PM EDT 01/05/2019 7:18 PM EDT Adela Morton [place] SPINNING FRAME FIXER CHEMISTRY ORDERABLES Fi nal Result Performing Organization Address City/[facility] Co de Phone Number [facility] [address] [facility] , [place] [address] documented in this encounter Visit Diagnoses Diagnosis Acne vulgaris Other acne Other fdc (current) drug therapy documented in this encounter Care Teams Wharf Helper Relationship Specialty Start Date End Date Mary Powers [address] [facility] [address] [place] [address] PCP - General Family Medicine 06/23/18 documented as of this encounter
== END 2025-04-28 23:59 | disposition home or self-care (01) ==
LOC: LAB.DROPOF 04-29 11:02
PROVIDERS: PCP Nurse Practitioner Family; Visit Provider Nurse Practitioner Family
DX: J06.9 Acute upper respiratory infection, unspecified (principal)
CPT/HCPCS: 87631

== ENCOUNTER 2025-05-25 08:52 | Outpatient (CLI) | payer OTHER, SELFPAY ==
[2025-05-25 15:33] LABS: Alanine Aminotransferase 22 U/L (12-78); Albumin Level 3.9 g/dl (3.5-5.0); Albumin/Globulin Ratio 1.4 (1.1-1.8); Alkaline Phosphatase 83 U/L (38-126); Anion Gap 11.2 mEq/L (5-15); Aspartate Amino Transferase 24 U/L (14-36); Bilirubin,Total 0.3 mg/dl (0.2-1.3); Blood Urea Nitrogen 8 mg/dl (7-17); Calcium 9.3 mg/dl (8.4-10.2); Carbon Dioxide 27 mmol/L (22.0-30.0); Chloride 103 mmol/L (98-107); Creatinine,Serum 0.60 mg/dl (0.52-1.04); Estimated Glomerular Filt Rate 114 ml/min (>60); GFR (African American) 138 ML/MIN (>60); Globulin 2.7 g/dL (1.3-3.2); Glucose 79 mg/dl (74-100); Potassium 4.2 mmoL/L (3.5-5.1); Sodium 137 mmol/L (136-145); Total Protein,Serum 6.6 g/dl (6.3-8.2)
[2025-05-25 16:32] LABS: Hemoglobin A1C 5.5 % (4.0-6.0)
--- OUTSIDE RECORDS SUMMARY | 2025-05-27 13:03 | XMS_ITS | Encounter Summary ---
Author Organization [facility] [place] [address] Care Team Providers Care Fiction And Nonfiction Prose Writer Name Role Phone Mary Powers Primary Care Provider [phone] Encounter Details Date Type Department Care Team (Late st Contact Info) Description 02/05/2019 Lab Requisition [facility] LAB[facility]ORY [facility] [place] [address] Adela Villalba, [facility] [address] [facility] [place] [address] Other intermediate (current) drug therapy; Acne vulgaris Social History [...] QUANTITATIVE Routine 02/05/2019 4:00 PM EDT Other intermediate (current) drug therapy Acne vulgaris TRIGLYCERIDES Routine 02/05/2019 4:00 PM EDT Other joint terminal attack controller (current) drug therapy Acne vulgaris CHOLESTEROL TOTAL Routine 02/05/2019 4:0 0 PM EDT Other intermediate (current) drug therapy Acne vulgaris HEPATIC FUNCTION PANEL Routine 05/16/201 9 4:00 PM EDT Other joint terminal attack controller (current) drug therapy Acne vulgaris documented in [...] 4:00 PM EDT 02/05/2019 7:[address] [employer] [facility] CHEMISTRY ORDERABLES Fi nal Result [facility], [facility] [address] [facility] , [place] [address] * (ABNORMAL) TRIGLYCERIDES (02/05/2019 4:00 PM EDT) Triglyceride 238(H) <=150 mg/dL 02/05/2019 10:03 PM EDT [facility] Comment: < 150 Normal 150 - 199 Borderline High 200 - 499 High >= 500 Very High Blood VENOUS BLOOD / Unknown 02/05/2019 4:00 PM EDT 02/05/2019 7:[address] [employer] [facility] VP CUSTOMER SERVICE CHEMISTRY ORDERABLES Fi nal Result Performing Organization Address City/[facility] Co de Phone Number [employer] [address] [facility] , [place] [address] * HUMAN CHORIONIC GONADOTROPIN QUANTITATIVE (02/05/2019 4:00 PM EDT) Hcg Quant <1 mIU/mL 02/05/2019 9:5 4 PM EDT [facility] [employer] Blood VENOUS BLOOD / Unknown 02/05/2019 4:00 PM EDT 02/05/2019 7:03 PM EDT Narrative [facility] [employer] - 02/05/2019 9:54 PM EDT < 5 [...] interfere with this immunoassay test. Adela Morton [place] VP CUSTOMER SERVICE CHEMISTRY ORDERABLES Fi nal Result Performing Organization Address [facility] Co de Phone Number [employer] [facility] [address] [facility] , [place] [address] * CHOLESTEROL TOTAL (02/05/2019 4:00 PM EDT) Cholesterol 114 <=200 mg/dL 02/05/2019 10:03 PM EDT [employer] Comment: < 200 Desirable 200 - 239 Borderline High >= 240 High Blood VENOUS BLOOD / Unknown 02/05/2019 4:00 PM EDT 02/05/2019 7:03 PM EDT Adela Morton [place] VP CUSTOMER SERVICE CHEMISTRY ORDERABLES Fi nal Result Performing Organization Address City/[facility] Co de Phone Number [employer] [facility] [address] [facility] , [place] [address] documented in this encounter Visit Diagnoses Diagnosis Other joint terminal attack controller (current) drug therapy Acne vulgaris Other acne documented in this encounter Care Teams Fiction And Nonfiction Prose Writer Relationship Specialty Start Date End Date Mary Powers [address] [facility] [address] [place] [address] PCP - General Family Medicine 06/23/18 documented as of this encounter
--- OUTSIDE RECORDS SUMMARY | 2025-05-27 13:03 | XMS_ITS | Encounter Summary ---
Author Organization [facility] [place] [address] Care Team Providers Care Artificial Flowers Dyer Name Role Phone Mary Powers Primary Care Provider [phone] Encounter Details Date Type Department Care Team (Late st Contact Info) Description 05/13/2019 Lab Requisition [facility] LABORATORY [facility] [place] [address] Adela Villalba, [facility] [address] [place] [address] Acne vulgaris; Other extermination supervisor (current) drug therapy Social History Tobacco [...] 05/13/2019 3:30 PM EDT Acne vulgaris Other extermination supervisor (current) drug therapy TRIGLYCERIDES Routine 05/13/2019 3:30 PM EDT Acne vulgaris Other extermination supervisor (current) drug therapy CHOLESTEROL TOTAL Routine 05/13/2019 [...] 3:30 PM EDT 05/13/2019 6:49 PM EDT [employer] [facility] CHEMISTRY ORDERABLES Fi nal Result [facility], [facility] [address] [facility] , [place] [address] * (ABNORMAL) TRIGLYCERIDES (05/13/2019 3:30 PM EDT) Triglyceride 387(H) <=150 mg/dL 05/13/2019 8:07 PM EDT [facility] Comment: < 150 Normal 150 - 199 Borderline High 200 - 499 High >= 500 Very High Blood VENOUS BLOOD / Unknown 05/13/2019 3:30 PM EDT 05/13/2019 6:49 PM EDT [employer] [facility] FILLETER CHEMISTRY ORDERABLES Fi nal Result Performing Organization Address City/[facility] Co de Phone Number [employer] [facility] [address] [facility] , [place] [address] * HUMAN CHORIONIC GONADOTROPIN QUANTITATIVE (05/13/2019 3:30 PM EDT) Hcg Quant <1 mIU/mL 05/13/2019 8:1 1 PM EDT [facility] [employer] [facility] Blood VENOUS BLOOD / Unknown 05/13/2019 3:30 PM EDT 05/13/2019 6:49 PM EDT Narrative [facility] [employer] - 05/13/2019 8:11 PM EDT < 5 [...] interfere with this immunoassay test. Adela Villalba FILLETER CHEMISTRY ORDERABLES Fi nal Result Performing Organization Address [facility] Co de Phone Number [facility] [employer] [facility] [address] [facility] , [place] [address] * CHOLESTEROL TOTAL (05/13/2019 3:30 PM EDT) Cholesterol 118 <=200 mg/dL 05/13/2019 8:07 PM EDT [employer] [facility] Comment: < 200 Desirable 200 - 239 Borderline High >= 240 High Blood VENOUS BLOOD / Unknown 05/13/2019 3:30 PM EDT 05/13/2019 6:49 PM EDT Adela Morton [place] FILLETER CHEMISTRY ORDERABLES Fi nal Result Performing Organization Address [facility] Co de Phone Number [employer] [facility] [address] [facility] , [place] [address] documented in this encounter Visit Diagnoses Diagnosis Acne vulgaris Other acne Other extermination supervisor (current) drug therapy documented in this encounter Care Teams Artificial Flowers Dyer Relationship Specialty Start Date End Date Mary Powers [address] [facility] [address] [place] [address] PCP - General Family Medicine 06/23/18 documented as of this encounter
--- OUTSIDE RECORDS SUMMARY | 2025-05-27 13:03 | XMS_ITS | Clinical Summary ---
Author Organization [facility] [place] Address [address] [place] [address] Phone Care Team Providers Care Intelligence Analyst Name Role Phone Mary Powers Primary Care Provider [phone] Social History Tobacco Use Types Packs/Day Years [...] age to complete this topic Care Teams Intelligence Analyst Relationship Specialty Start Date End Date Mary Powers [address] [facility] [address] [place] [address] PCP - General Family Medicine 06/23/18
--- OUTSIDE RECORDS SUMMARY | 2025-05-27 13:03 | XMS_ITS | Encounter Summary ---
Author Organization [place] [address] Care Team Providers Care Compressor Operator Name Role Phone Mary Powers Primary Care Provider [phone] Encounter Details Date Type Department Care Team (Late st Contact Info) Description 06/16/2019 Lab Requisition EDG LABORATORY [facility] [place] [address] Adela Villalba, [facility] [address] [facility] [address] Other senior care (current) drug therapy; Acne vulgaris Social History [...] QUANTITATIVE Routine 06/16/2019 4:00 PM EDT Other senior care (current) drug therapy Acne vulgaris TRIGLYCERIDES Routine 06/16/2019 4:00 PM EDT Other terminal makeup operator (current) drug therapy Acne vulgaris CHOLESTEROL TOTAL Routine 06/16/2019 4:0 0 PM EDT Other senior care (current) drug therapy Acne vulgaris HEPATIC FUNCTION PANEL Routine 09/24/201 9 4:00 PM EDT Other terminal makeup operator (current) drug therapy Acne vulgaris documented in this encounter Results * (ABNORMAL) TRIGLYCERIDES (06/16/2019 4:00 PM EDT) Pathologist [facility] Triglyceride 529(H) <=150 mg/dL 06/16/2019 8:18 PM EDT [facility] [employer] Comment: < 150 Normal 150 - 199 Borderline High 200 - 499 High >= 500 Very High Blood VENOUS BLOOD / Unknown 06/16/2019 4:00 PM EDT 06/16/2019 6:55 PM EDT [facility] CHEMISTRY ORDERABLES Fi nal Result Performing Organization Address [facility] Phone Number [facility] [employer] [address] , [place] [address] * HUMAN CHORIONIC GONADOTROPIN QUANTITATIVE (06/16/2019 4:00 PM EDT) [facility] Hcg Quant <1 mIU/mL 06/16/2019 8:3 6 PM EDT [facility] [employer] Blood VENOUS BLOOD / Unknown 06/16/2019 4:00 PM EDT 06/16/2019 6:55 PM EDT Narrative [facility] [employer] - 06/16/2019 8:36 PM EDT < 5 [...] sample can interfere with this immunoassay test. [facility] CHEMISTRY ORDERABLES Fi nal Result Performing Organization Address [facility] de Phone Number [facility] [employer] [address] [place] [address] * CHOLESTEROL TOTAL (06/16/2019 4:00 PM EDT) Cholesterol 122 <=200 mg/dL 06/16/2019 8:13 PM EDT [facility] Comment: < 200 Desirable 200 - 239 Borderline High >= 240 High Blood VENOUS BLOOD / Unknown 06/16/2019 4:00 PM EDT 06/16/2019 6:55 PM EDT [facility] CHEMISTRY ORDERABLES Fi nal Result Performing Organization Address City/[facility] Co de Phone Number [facility], [facility] [address] [facility] , [place] [address] * HEPATIC FUNCTION PANEL (06/16/2019 [...] 4:00 PM EDT 06/16/2019 6:55 PM EDT [employer] COOKIE BREAKER CHEMISTRY ORDERABLES Fi nal Result Performing Organization Address City/[facility] Co de Phone Number [facility], [facility] [address] [facility] , [place] [address] documented in this encounter Visit Diagnoses Diagnosis Other terminal makeup operator (current) drug therapy Acne vulgaris Other acne documented in this encounter Care Teams Compressor Operator Relationship Specialty Start Date End Date Mary Powers [address] [facility] [address] [place] [address] PCP - General Family Medicine 06/23/18 documented as of this encounter
--- OUTSIDE RECORDS SUMMARY | 2025-05-27 13:03 | XMS_ITS | Encounter Summary ---
[facility] Organization [facility] Address [address] [place] [address] Care Team Providers Care Electron Beam Operator Name Role Phone Provider, No Known Primary Care Provider Unavail able Encounter Details Date Type Department Care Team (Late st Contact Info) Description 12/11/2024 Medication Therapy Management [facility] MATERNAL MEDICINE [address] [place] [phone] Yi Kiran MD [address] [place] [address] Social History Tobacco Use Types Packs/Day Years Used Date Smoking Tobacco: Former Cigarettes Smokeless Tobacco: Never Alcohol Use Standard Drinks/Week Comments Not Currently 0 (1 standard drink = 0.6 oz pur e alcohol) [facility] Utilities Answer Date Recorded In the past 12 months has [employer], [employer], oil, or water [employer] threatened to shut off services in your [...] and heating? Not hard at all 12/12/2024 [facility] - Occupational Stress Questionnaire Answer Date [...] things needed for daily living? No 12/12/2024 [place] Depression Scale Answer Date Recorded [place] Depression Scale Total 6 12/13/2024 The thought [...] GED or equivalent No 12/12/2024 Preferred Language Yi 12/12/2024 PHQ-2 Answer Date Recorded Patient Health [...] 12:58 PM EDT Key Christian RN * [place] Suicide Severity Rating Scale (Screener/Recent Self-Report) Question [...] on filedocumented in this encounter Care Teams Electron Beam Operator Relationship Specialty Start Date End Date Provider, [place] [address] PCP - General 06/15/24 documented as of this encounter
--- OUTSIDE RECORDS SUMMARY | 2025-05-27 13:03 | XMS_ITS | Encounter Summary ---
[facility] Address [address] [place] [address] Care Team Providers Care Retirement Specialist Name Role Phone Provider, No Known Primary Care Provider Unavail able Encounter Details Date Type Department Care Team (Late st Contact Info) Description 12/11/2024 Medication Therapy Management [facility] MATERNAL MEDICINE [address] [place] [phone] Yi Kiran MD [address] [place] [address] Type 2 diabetes mellitus in , third trimester Social History Tobacco Use Types Packs/Day Years Used Date Smoking Tobacco: Former Cigarettes Smokeless Tobacco: Never Alcohol Use Standard Drinks/Week Comments Not Currently 0 (1 standard drink = 0.6 oz pur e alcohol) [facility] Utilities Answer Date Recorded In the past 12 months has [employer], gas, oil, or water [employer] threatened to shut off services in your [...] and heating? Not hard at all 12/12/2024 [facility] - Occupational Stress Questionnaire Answer Date [...] things needed for daily living? No 12/12/2024 [place] Depression Scale Answer Date Recorded [place] Depression Scale Total 6 12/13/2024 The thought [...] GED or equivalent No 12/12/2024 Preferred Language Yakut 12/12/2024 PHQ-2 Answer Date Recorded Patient Health [...] 12:58 PM EDT Key Christian RN * [place] Suicide Severity Rating Scale (Screener/Recent Self-Report) Question [...] trimester documented in this encounter Care Teams Retirement Specialist Relationship Specialty Start Date End Date Provider, [place] [address] PCP - General 06/15/24 documented as of this encounter
--- OUTSIDE RECORDS SUMMARY | 2025-05-27 13:03 | XMS_ITS | Encounter Summary ---
Author Organization [facility] [place] [address] Care Team Providers Care Door Machine Operator Name Role Phone Mary Powers Primary Care Provider [phone] Encounter Details Date Type Department Care Team (Late st Contact Info) Description 04/09/2019 Lab Requisition [facility] LAB[facility]AT[facility] [place] [address] Adela Villalba, [facility] [address] [address] [place] [address] Acne vulgaris; Other extermination supervisor [...] 04/09/2019 4:00 PM EDT Acne vulgaris Other extermination supervisor (current) drug therapy TRIGLYCERIDES Routine 04/09/2019 4:00 PM EDT Acne vulgaris Other extermination supervisor (current) drug therapy CHOLESTEROL TOTAL Routine 04/09/2019 4:0 0 PM EDT Acne vulgaris Other senior care (current) drug therapy HEPATIC FUNCTION PANEL Routine 07/18/201 9 4:00 PM EDT Acne vulgaris Other senior care (current) drug therapy documented in this encounter [...] 4:00 PM EDT 04/09/2019 7:28 PM EDT [facility] CHEMISTRY ORDERABLES Fi nal Result [facility], [facility] [address] [facility] , [place] [address] * (ABNORMAL) TRIGLYCERIDES (04/09/2019 4:00 PM EDT) Triglyceride 329(H) <=150 mg/dL 04/09/2019 9:07 PM EDT [facility] Comment: < 150 Normal 150 - 199 Borderline High 200 - 499 High >= 500 Very High Blood VENOUS BLOOD / Unknown 04/09/2019 4:00 PM EDT 04/09/2019 7:28 PM EDT [facility]INEA PIG [employer]EDER CHEMISTRY ORDERABLES Fi nal Result Performing Organization Address City/[facility] Co de Phone Number [employer] [address] [facility] , [place] [address] * HUMAN CHORIONIC GONADOTROPIN QUANTITATIVE (04/09/2019 4:00 PM EDT) Hcg Quant <1 mIU/mL 04/09/2019 9:1 0 PM EDT [facility] [employer] [facility] Blood VENOUS BLOOD / Unknown 04/09/2019 4:00 PM EDT 04/09/2019 7:28 PM EDT Narrative [facility] [employer] - 04/09/2019 9:10 PM EDT < 5 [...] interfere with this immunoassay test. Adela Morton [place] GUINEA PIG BREEDER CHEMISTRY ORDERABLES Fi nal Result Performing Organization Address [facility] Co de Phone Number [facility] [employer] [facility] [address] [facility] , [place] [address] * CHOLESTEROL TOTAL (04/09/2019 4:00 PM EDT) Cholesterol 107 <=200 mg/dL 04/09/2019 9:07 PM EDT [employer] Comment: < 200 Desirable 200 - 239 Borderline High >= 240 High Blood VENOUS BLOOD / Unknown 04/09/2019 4:00 PM EDT 04/09/2019 7:28 PM EDT Adela Morton [place] GUINEA PIG BREEDER CHEMISTRY ORDERABLES Fi nal Result Performing Organization Address [facility] Co de Phone Number [employer] [facility] [address] [facility] , [place] [address] documented in this encounter Visit Diagnoses Diagnosis Acne vulgaris Other acne Other extermination supervisor (current) drug therapy documented in this encounter Care Teams Door Machine Operator Relationship Specialty Start Date End Date Mary Powers [address] [facility] [address] [place] [address] PCP - General Family Medicine 06/23/18 documented as of this encounter
--- OUTSIDE RECORDS SUMMARY | 2025-05-27 13:03 | XMS_ITS | Encounter Summary ---
Author Organization [facility] [place] [address] Care Team Providers Care Pipe Smoker Machine Operator Name Role Phone Mary Powers Primary Care Provider [phone] Encounter Details Date Type Department Care Team (Late st Contact Info) Description 03/09/2019 Lab Requisition [facility] LABORATORY [facility] [place] [address] Adela Villalba, [facility] [address] [place] [place] [address] Acne vulgaris; Other long winder tender (current) drug therapy Social History Tobacco Use [...] 03/09/2019 3:39 PM EDT Acne vulgaris Other long winder tender (current) drug therapy TRIGLYCERIDES Routine 03/09/2019 3:39 PM EDT Acne vulgaris Other long winder tender (current) drug therapy CHOLESTEROL TOTAL Routine 03/09/2019 3:3 9 PM EDT Acne vulgaris Other group home (current) drug therapy HEPATIC FUNCTION PANEL Routine 06/17/201 9 3:39 PM EDT Acne vulgaris Other group home (current) drug therapy documented in this encounter [...] 3:39 PM EDT 03/09/2019 6:39 PM EDT Over 40 Females [facility] CHEMISTRY ORDERABLES Fi nal Result [facility], [facility] [address] [facility] , [place] [address] * (ABNORMAL) TRIGLYCERIDES (03/09/2019 3:39 PM EDT) Triglyceride 355(H) <=150 mg/dL 03/09/2019 8:29 PM EDT [facility] Comment: < 150 Normal 150 - 199 Borderline High 200 - 499 High >= 500 Very High Blood VENOUS BLOOD / Unknown 03/09/2019 3:39 PM EDT 03/09/2019 6:39 PM EDT [facility] [facility] COLLAR TRIMMER CHEMISTRY ORDERABLES Fi nal Result Performing Organization Address City/[facility] Co de Phone Number [employer] [address] [facility] , [place] [address] * HUMAN CHORIONIC GONADOTROPIN QUANTITATIVE (03/09/2019 3:39 PM EDT) Hcg Quant <1 mIU/mL 03/09/2019 8:1 1 PM EDT [facility] Matone [employer] [facility] Blood VENOUS BLOOD / Unknown 03/09/2019 3:39 PM EDT 03/09/2019 6:39 PM EDT Narrative [facility] [employer] - 03/09/2019 8:11 PM EDT < 5 [...] interfere with this immunoassay test. Adela Villalba COLLAR TRIMMER CHEMISTRY ORDERABLES Fi nal Result Performing Organization Address [facility] Co de Phone Number [facility] [employer] [facility] [address] [facility] , [place] [address] * CHOLESTEROL TOTAL (03/09/2019 3:39 PM EDT) Cholesterol 146 <=200 mg/dL 03/09/2019 8:29 PM EDT [employer] Comment: < 200 Desirable 200 - 239 Borderline High >= 240 High Blood VENOUS BLOOD / Unknown 03/09/2019 3:39 PM EDT 03/09/2019 6:39 PM EDT Adela Morton [place] COLLAR TRIMMER CHEMISTRY ORDERABLES Fi nal Result Performing Organization Address [facility] Co de Phone Number [employer] [facility] [address] [facility] , [place] [address] documented in this encounter Visit Diagnoses Diagnosis Acne vulgaris Other acne Other long winder tender (current) drug therapy documented in this encounter Care Teams Pipe Smoker Machine Operator Relationship Specialty Start Date End Date Mary Powers [address] [facility] [address] [place] [address] PCP - General Family Medicine 06/23/18 documented as of this encounter
--- OUTSIDE RECORDS SUMMARY | 2025-05-27 13:03 | XMS_ITS | Encounter Summary ---
Author Organization [place] [address] Care Team Providers Care Data Operations Director Name Role Phone Mary Powers Primary Care Provider [phone] Encounter Details Date Type Department Care Team (Late st Contact Info) Description 01/05/2019 Lab Requisition [facility] LAB[facility]AT[facility] [place] [address] Adela Villalba, [facility] [address] [address] Acne vulgaris; Other superintendent terminal (current) drug therapy Social History Tobacco Use [...] 01/05/2019 3:18 PM EDT Acne vulgaris Other superintendent terminal (current) drug therapy TRIGLYCERIDES Routine 01/05/2019 3:18 PM EDT Acne vulgaris Other superintendent terminal (current) drug therapy CHOLESTEROL TOTAL Routine 01/05/2019 3:1 8 PM EDT Acne vulgaris Other group home (current) drug therapy HEPATIC FUNCTION PANEL Routine 04/15/201 9 3:18 PM EDT Acne vulgaris Other group home [...] 3:18 PM EDT 01/05/2019 7:18 PM EDT [employer] [facility] CHEMISTRY ORDERABLES Fi nal Result [facility], [facility] [address] [facility] , [place] [address] * (ABNORMAL) TRIGLYCERIDES (01/05/2019 3:18 PM EDT) Triglyceride 159(H) <=150 mg/dL 01/05/2019 9:02 PM EDT [facility] Comment: < 150 Normal 150 - 199 Borderline High 200 - 499 High >= 500 Very High Blood VENOUS BLOOD / Unknown 01/05/2019 3:18 PM EDT 01/05/2019 7:18 PM EDT [employer] [facility] [place]ER [place]ES CHEMISTRY ORDERABLES Fi nal Result Performing Organization Address City/[facility] Co de Phone Number [facility] [address] [facility] , [place] [address] * HUMAN CHORIONIC GONADOTROPIN QUANTITATIVE (01/05/2019 3:18 PM EDT) Hcg Quant <1 mIU/mL 01/05/2019 9:0 0 PM EDT [facility] Blood VENOUS BLOOD / Unknown 01/05/2019 3:18 PM EDT 01/05/2019 7:18 PM EDT Narrative [facility] - 01/05/2019 9:00 PM EDT < 5 [...] interfere with this immunoassay test. Adela Morton Secretary [place] CHEMISTRY ORDERABLES Fi nal Result Performing Organization Address [facility] Co de Phone Number [facility] [address] [facility] , [place] [address] * CHOLESTEROL TOTAL (01/05/2019 3:18 PM EDT) Cholesterol 107 <=200 mg/dL 01/05/2019 9:02 PM EDT [facility] Comment: < 200 Desirable 200 - 239 Borderline High >= 240 High Blood VENOUS BLOOD / Unknown 01/05/2019 3:18 PM EDT 01/05/2019 7:18 PM EDT Adela Morton Secretary [place] CHEMISTRY ORDERABLES Fi nal Result Performing Organization Address City/[facility] Co de Phone Number [facility] [address] [facility] , [place] [address] documented in this encounter Visit Diagnoses Diagnosis Acne vulgaris Other acne Other superintendent terminal (current) drug therapy documented in this encounter Care Teams Data Operations Director Relationship Specialty Start Date End Date Mary Powers [address] [facility] [address] [place] [address] PCP - General Family Medicine 06/23/18 documented as of this encounter
--- OUTSIDE RECORDS SUMMARY | 2025-05-27 13:03 | XMS_ITS | Encounter Summary ---
Author Organization [facility] [place] [address] Care Team Providers Care Profiling Machine Operator Name Role Phone Mary Powers Primary Care Provider [phone] Encounter Details Date Type Department Care Team (Late st Contact Info) Description 07/16/2019 Lab Requisition [facility] LABORATORY [facility] [place] [address] Adela Villalba, 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 CHEMISTRY ORDERABLES Fi nal Result [facility], [facility] [address] [facility] , [place] [address] * (ABNORMAL) TRIGLYCERIDES (07/16/2019 3:31 PM EDT) Triglyceride 425(H) <=150 mg/dL 07/16/2019 7:48 PM EDT [facility] Comment: < 150 Normal 150 - 199 Borderline High 200 - 499 High >= 500 Very High Blood VENOUS BLOOD / Unknown 07/16/2019 3:31 PM EDT 07/16/2019 6:31 PM EDT [employer] CHEMISTRY ORDERABLES Fi nal Result Performing Organization Address City/[facility]/ZIP Co de Phone Number [employer] [address] [facility] , [place] [address] * HUMAN CHORIONIC GONADOTROPIN QUANTITATIVE (07/16/2019 3:31 PM EDT) Hcg Quant <1 mIU/mL 07/16/2019 7:[address] [facility] [employer] Blood VENOUS BLOOD / Unknown 07/16/2019 3:31 PM EDT 07/16/2019 6:31 PM EDT Narrative [facility] [employer] - 07/16/2019 7:39 PM EDT < 5 [...] interfere with this immunoassay test. Adela Morton [place] [employer] CHEMISTRY ORDERABLES Fi nal Result Performing Organization Address [facility] Co de Phone Number [employer] [facility] [address] [facility] , [place] [address] * CHOLESTEROL TOTAL (07/16/2019 3:31 PM EDT) Cholesterol 101 <=200 mg/dL 07/16/2019 7:39 PM EDT [employer] Comment: < 200 Desirable 200 - 239 Borderline High >= 240 High Blood VENOUS BLOOD / Unknown 07/16/2019 3:31 PM EDT 07/16/2019 6:31 PM EDT Adela Morton [place] [employer] CHEMISTRY ORDERABLES Fi nal Result Performing Organization Address City/[facility] Co de Phone Number [employer] [facility] [address] [facility] , [place] [address] documented in this encounter Visit Diagnoses Diagnosis 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
--- OUTSIDE RECORDS SUMMARY | 2025-05-27 13:03 | XMS_ITS | Clinical Summary ---
[facility] Address [address] [place] [address] Care Team Providers Care Sales Account Representative Name Role Phone Provider, No Known Primary Care Provider Unavail able Allergies Active Allergy Reactions Criticality Noted Date Comments Aspirin Rash Low 07/06/2024 SALICYLIC ACID Benzoyl Peroxide Rash Low 10/18/2023 Medications ARIPiprazole (ABILIFY) 10 MG tablet Take 1 tablet by mouth every night at bedtime. 06/14/20 24 Active rizatriptan MAP DRAFTER (MAXALT-MAP DRAFTER) [address] 1 tablet [...] mouth Daily. Active Insulin Pen Needle ([place]) 31G X 5 MM miscIndications:Ty pe 2 [...] 2 diabetes mellitus in , [facility] 07/09/2024 Assessment & Plan (11/02/2024 8:19 AM [...] drink = 0.6 oz pur e alcohol) [facility] Utilities Answer Date Recorded In [...] and heating? Not hard at all 12/12/2024 [facility] - Occupational Stress [...] things needed for daily living? No 12/12/2024 [place] Depression Scale Answer Date Recorded [place] Depression Scale Total 0 12/24/2024 The thought [...] GED or equivalent No 12/12/2024 Preferred Language Qatari 12/12/2024 PHQ-2 Answer Date Recorded Patient Health [...] External Hepatitis C Ab non-reacti ve Blood [facility] Provider LAB BLOOD ORDERABLES Joan l Result from Last 3 Months or Most Recently Relevant to Health Maintenance Insurance [employer] F[employer]OD [id number] Advance Directives Documents on File Type Date Recorded Patient Project Builder Expl anation LIVING WILL - SCAN 11/02/2024 [...] Of Support Discussed With: Patient Care Teams Sales Account Representative Relationship Specialty Start Date End Date Provider, [place] [address] PCP - General 06/15/24
== END 2025-05-25 23:59 | disposition home or self-care (01) ==
LOC: LAB.DROPOF 05-27 12:58
PROVIDERS: PCP Nurse Practitioner; Visit Provider Nurse Practitioner
DX: E11.9 Type 2 diabetes mellitus without complications (principal)
CPT/HCPCS: 80053; 83036

== ENCOUNTER 2025-09-01 09:00 | Outpatient (CLI) | payer OTHER, SELFPAY ==
[2025-09-01 18:43] LABS: Hematocrit 38.0 % (37.0-47.0); Hemoglobin 12.0 g/dL (12.2-16.2); Immature Granulocytes % 0.2 %; Mean Corpuscular HGB Conc 31.6 g/dL (31.8-35.4); Mean Corpuscular Hemoglobin 24.6 pg (27.0-31.2); Mean Corpuscular Volume 78.0 fl (81-99); Nucleated Red Blood Cells % 0 %; Platelet Count 242 K/mm3 (142-424); Red Blood Count 4.87 M/mm3 (4.20-5.40); Red Cell Distribution Width-SD 39.4 fL; White Blood Count 5.9 K/mm3 (4.8-10.8)
[2025-09-01 18:56] LABS: Alanine Aminotransferase 21 U/L (12-78); Albumin Level 4.0 g/dl (3.5-5.0); Albumin/Globulin Ratio 1.5 (1.1-1.8); Alkaline Phosphatase 76 U/L (38-126); Anion Gap 12.4 mEq/L (5-15); Aspartate Amino Transferase 22 U/L (14-36); Bilirubin,Total 0.3 mg/dl (0.2-1.3); Blood Urea Nitrogen 12 mg/dl (7-17); Calcium 9.1 mg/dl (8.4-10.2); Carbon Dioxide 27 mmol/L (22.0-30.0); Chloride 104 mmol/L (98-107); Cholesterol 111 mg/dl (140-200); Creatinine,Serum 0.70 mg/dl (0.52-1.04); Estimated Glomerular Filt Rate 95 ml/min (>60); GFR (African American) 115 ML/MIN (>60); Globulin 2.7 g/dL (1.3-3.2); Glucose 90 mg/dl (74-100); HDL Cholesterol 52 mg/dl (40-60); Iron 64 ug/dL (37-170); Potassium 4.4 mmoL/L (3.5-5.1); Sodium 139 mmol/L (136-145); Total Protein,Serum 6.7 g/dl (6.3-8.2); Triglycerides 106 mg/dl (30-150)
[2025-09-01 19:07] LABS: Total Iron Binding Capacity 473 ug/dL (265-497)
[2025-09-01 19:27] LABS: Thyroid Stimulating Hormone 0.21 uIU/mL (0.465-4.68)
[2025-09-01 19:46] LABS: Vitamin B12 667 pg/mL (239-931)
[2025-09-01 19:49] LABS: 25-OH Vitamin D, Total 43.5 ng/mL (30-100)
[2025-09-01 20:03] LABS: Folate > 20.00 ng/mL
[2025-09-01 23:40] LABS: Hemoglobin A1C 6.0 % (4.0-6.0)
== END 2025-09-01 23:59 ==
LOC: LAB.DROPOF 09-03 11:34
PROVIDERS: PCP Nurse Practitioner; Visit Provider Nurse Practitioner
DX: O24.119 Pre-existing type 2 diabetes mellitus, in pregnancy, unspecified trimester (principal); O99.280 Endocrine, nutritional and metabolic diseases complicating pregnancy, unspecified trimester; O99.210 Obesity complicating pregnancy, unspecified trimester; E66.9 Obesity, unspecified; E55.9 Vitamin D deficiency, unspecified; E53.8 Deficiency of other specified B group vitamins; E78.5 Hyperlipidemia, unspecified; Z98.84 Bariatric surgery status; Z3A.00 Weeks of gestation of pregnancy not specified
CPT/HCPCS: 80053; 80061; 82306; 82607; 82746; 83036; 83540; 83550; 84443; 85025

== ENCOUNTER 2025-09-09 20:06 | Emergency (ER) | payer OTHER, SELFPAY ==
[2025-09-09] VITALS (9 sets, daily range): BP systolic 111–130; BP diastolic 68–80; PULSE 78–87; RESP 16–20; TEMP 36.6–36.8; O2SAT 96–100; BMI 36.6
--- NOTE | 2025-09-09 20:10 | ED_ITS ---
<Statement entered by Ro Otto DO - 09/09/25 23:55> I was consulted by the LEENA, and we discussed the complexity of problems being addressed. I approve the treatment and management plan for this patient's care in the emergency department, thus performing a substantial portion of the medical decision making. Ro Otto DO Discharge Plan Disposition Patient Disposition: Home, Self-Care Condition: Good Prescriptions Prescriptions: New ondansetron 4 mg tablet,disintegrating 4 mg PO Q6H PRN (Reason: nausea and vomiting) Qty: 16 0RF No Action venlafaxine 75 mg capsule,extended release 24hr 75 mg PO DAILY Qty: 90 1RF alprazolam [Xanax] 0.25 mg tablet 0.25 mg PO BID PRN (Reason: anxiety) Qty: 15 0RF (DME) Dexcom G7 Sensor Device See Rx Instructions .ROUTE .MEDSUPPLY Qty: 1 11RF Rx Instructions: As directed aripiprazole 10 mg tablet See Rx Instructions PO DAILY 90 Days Qty: 135 1RF Rx Instructions: orally daily; take 1/2 a tablet (5 mg) in the morning and 1 full tablet (10 mg) at night to equal a daily total of 15 mg venlafaxine 150 mg capsule,extended release 24hr 150 mg PO DAILY Qty: 90 1RF (DME) Dexcom G7 Sensor Device See Rx Instructions .ROUTE .MEDSUPPLY Qty: 1 Patient Comments: USE 1 EVERY 10 DAYS Rx Instructions: As directed norgestimate-ethinyl estradiol [Tri-Lo-Lorenza] 0.18/0.215/0.25 mg-0.025 mg tablet 1 tab PO DAILY Qty: 84 4RF omeprazole 20 mg capsule,delayed release(DR/EC) 20 mg PO DAILY PRN (Reason: gerd) Qty: 90 2RF Referrals Follow up/Referrals: Laya Guaman APRN [Primary Care Provider, Family Practice] - See instructions Activity Restrictions/Add. Instructions Additional Instructions/Restrictions: You were evaluated on an emergency basis. It is very important that you follow- up with your primary care provider and any specialist who we discussed within the next 2 days in order to better assess your health more comprehensively. For example, incidental findings on imaging or laboratory results that were performed today may be discovered, which do not require immediate medical care, but may impact your health in the future. If your symptoms worsen or persist, please return to the emergency department immediately for reassessment. Take all medications as prescribed. In queue for allowing me to participate in your health care, and I hope you feel better soon. Clinical Impressions Clinical Impression: Gallbladder disease Instructions Patient Instructions: DI for General Gallbladder Conditions Print Language Print Language: Citizen Of [place] Discharge ED Provider: Ro Otto Adult HPI General Chief complaint: Abdominal Pain Stated complaint: abdominal pain Time Seen by Provider: 09/09/25 20:10 History of Present Illness HPI narrative: 35-year-old female presents emergency department complaints of abdominal pain that started approximate 2 hours prior to arrival. She states that she then began to develop vomiting and diarrhea. She denies fevers. She reports she does have a history of gastric sleeve that was completed at [facility] 2 years ago. She states she did take some Pepto prior to arrival. Related Data Home Medications ?Medication ?Instructions ?Recorded ?Confirmed blood-glucose sensor (Dexcom G7 #1 ea 11/09/24 5 Sensor device) Previous Rx's ?Medication ?Instructions ?Recorded norgestimate 0.18 mg/0.215mg/0.25 1 tab PO DAILY #84 t abs 01/26/25 mg-ethinyl estradiol 0.025 mg tablet (Tri-Lo-Lorenza) blood-glucose sensor (Dexcom G7 #1 ea 02/22/25 Sensor device) alprazolam 0.25 mg tablet (Xanax) 0.25 mg PO BID PRN a nxiety #15 tabs 05/07/25 venlafaxine 75 mg capsule,extended 75 mg PO DAILY #90 caps 05/07/25 release 24 hr aripiprazole 10 mg tablet See Rx Instructions PO DAILY 90 07/30/25 days #135 tabs venlafaxine 150 mg 150 mg PO DAILY #90 caps 04/16 capsule,extended release 24 hr omeprazole 20 mg capsule,delayed 20 mg PO DAILY PRN ge rd #90 caps 08/23/25 release ondansetron 4 mg disintegrating 4 mg PO Q6H PRN nausea and 09/09/25 tablet vomiting #16 tabs Allergies Allergy/AdvReac Type Severity Reaction Status Date / Time benzoyl peroxide Allergy Mild rash Verified 09/01/25 08:40 salicylic acid Allergy Mild Rash Verified 09/01/25 08:40 [facility] Disclaimer: The information contained in this section may have been updated after the patient was seen, as this information can be updated by other users. Medical History Abscess of Bartholin's gland with 34 completed weeks gestation premature rupture of membranes Sore throat (viral) Vaginitis affecting , antepartum Rubella non-immune status, antepartum Pre-existing type 2 diabetes mellitus during Advanced maternal age, 1st Maternal obesity affecting , antepartum Thyroid nodule Hyperlipidemia Uterine leiomyoma 1.8 x 1.6 cm fibroid in the anterior aspect of the body of the uterus. 1.5 cm fibroid along the fundus of the uterus. 3.5 cm area of heterogeneous echogenicity in the left aspect of the body of the uterus suggesting a fibroid, possibly pedunculated. CATHY (obstructive sleep apnea) Mild to moderate CATHY, significant symptomatic improvement with CPAP compliance. Type 2 diabetes mellitus Generalized anxiety disorder Surgical History Status post vaginal delivery Hx of bariatric surgery (~04/2023) Family History Grandfather Diabetes Grandmother Diabetes Anemia Thyroid disorder Hypertension Heart attack Family/Other Cancer Uncle Social History Smoking Status: Never smoker alcohol intake: never counseling given: No substance use type: denies use current occupational status: other Travel in the last 8 weeks?: None household members: spouse housing: house marital status: number of children: 0 service: No senior care: No leisure activities: exercise Hx Recent Travel: No sexually active: Yes (with her ) Have you lived/traveled outside US in past 30 days?: No Contact w/someone who lives/traveled outside US past 30 days?: No Exposure to someone with infectious disease in past 14 days?: No Do you have a fever (greater than 100.4 F or 38 C)?: No Have you tested positive for COVID-19?: No Exposed to someone with COVID-19 in past 14 days?: No Do you have a sore throat?: No Do you have a cough?: No Do you have any weakness?: No Do you have any diarrhea?: No Are you experiencing any unusual bleeding?: No Do you have any muscle aches/pain?: No Do you have any abdominal pain?: No Are you experiencing loss of taste or smell?: No Other Medical History Have you received the Flu Vaccine for this season: No Have you received the Pneumonia Vaccine: Yes ROS Obtained: Yes other Gastrointestinal Gastrointestingal: Reports abdominal pain, diarrhea, nausea and vomiting Physical Exam Narrative Physical exam: General: Awake, aware, in no acute distress HEENT: Normocephalic, no evidence of trauma CV: RRR, no murmurs, rubs, or gallops Pulm: CTA bilaterally with no rhonchi, rales, wheezes ABD: Patient with normal active bowel sounds in all quadrants. Patient does report tenderness on palpation of all quadrants of abdomen as well. Psych, appropriate mood and affect General General appearance: alert Respiratory Respiratory exam: Present normal lung sounds bilaterally Cardiovascular Cardiovascular exam: Present regular rate Neurological Exam Neurological exam: Present alert Medical Decision Making Medical Records Screening: Per USPSTF and CDC recommendations, given the prevalence of disease in our region, it is our hospital?s policy to screen for HIV and viral Hepatitis for all patients aged 18 and over and those with ongoing risk factors. Edwin Inquiry Pt receiving controlled substance: No Vital Signs: 09/09/25 20:19 Temperature 97.9 F Temperature Source Oral Pulse Rate [Right Radial] 86 Respiratory Rate 20 Blood Pressure [Right Arm] 130/79 Blood Pressure Mean [Right Arm] 96 Blood Pressure Source [Right Arm] Automatic Cuff Blood Pressure Position [Right Arm] Sitting 02 Sat by Pulse Oximetry 97 Oxygen Delivery Method Room Air Lab Data Lab Results 09/09/25 20:17: Urine Color Yellow, Urine Appearance Clear, Urine pH 6.0, Ur Specific Horton >= 1.030, Urine Protein Negative, Urine Glucose (UA) Negative, Urine Ketones Negative, Urine Blood 3+ A, Urine Nitrate Negative, Urine Bilirubin Negative, Urine Urobilinogen 2.0, Ur Leukocyte Esterase Negative, Urine RBC Tntc, Urine WBC 5-10, Ur Squamous Epith Cells 10-20, Urine Bacteria 3+, Urine Mucus 3+ 09/09/25 20:20: WBC 10.8, RBC 5.17, Hgb 13.0, Hct 40.7, MCV 78.7 L, MCH 25.1 L, MCHC 31.9, RDW 13.9, Plt Count 292, MPV 11.2 H, Neut % (Auto) 74.4, Lymph % (Auto) 20.4, Adair % (Auto) 4.7, Eos % (Auto) 0.0 L, Baso % (Auto) 0.1, Neut # (Auto) 8.0 H, Lymph # (Auto) 2.2, [place] # (Auto) 0.5, Eos # (Auto) 0.0, Baso # (Auto) 0.0, Sodium 139, Potassium 3.7, Chloride 104, Carbon Dioxide 27, Anion Gap 11.7, BUN 12, Creatinine 0.70, Estimated Creat Clear 159, Estimated GFR 95, Est GFR ( Amer) 115, Glucose 144 H, Calcium 9.0, Magnesium 2.1, Total Bilirubin 0.6, AST 81 H, ALT 60, Alkaline Phosphatase 84, Total Protein 8.0, Albumin 4.6, Globulin 3.4 H, Albumin/Globulin Ratio 1.4, Lipase 226, Serum HCG, Qual Negative 09/09/25 20:20 09/09/25 20:20 Orders (Tests/Meds): ED MEDICATIONS Generic Name Dose Route Start Last Admin Trade Name Freq PRN Reason Stop Dose Admin Sodium Chloride 10 ml 09/09/25 21:02 09/09/25 21:03 Sodium Chloride 0.9% 10ml Syr (Rad Only) IV 10/09/25 21:01 10 ml NEEDED PRN Administration Maintain IV Site Discontinued Medications Generic Name Dose Route Start Last Admin Trade Name Freq PRN Reason Stop Dose Admin Sodium Chloride 1,000 mls @ 999 mls/hr 09/09/25 20:24 09/09/25 21:41 Sod Chlor 0.9% 1000ml Bag IV 09/09/25 21:24 Infused .Q1H1M ONE Infusion Iopamidol 75 ml 09/09/25 21:02 09/09/25 21:03 Iopamidol-370 (76%);100ml Bottle IV 09/09/25 21:03 75 ml ONCE ONE Administration Ketorolac Tromethamine 15 mg 09/09/25 20:24 09/09/25 20:35 Ketorolac 15mg/Ml Vial IV 09/09/25 20:25 15 mg ONCE ONE Administration Ondansetron HCl 4 mg 09/09/25 20:24 09/09/25 20:35 Ondansetron 4mg/2ml Vial IV 09/09/25 20:25 4 mg ONCE ONE Administration ORDERS Category Date Time Status CT abdomen pelvis w con Stat Cat Scan 09/09/25 20:24 Completed CBC w/Auto Diff [Complete Blood Count Auto Diff] Stat Lab 09/09/25 20:20 Completed CMP [Comprehensive Metabolic Panel] Stat Lab 09/09/25 20:20 Completed HCG Qualitative, Serum Stat Lab 09/09/25 20:20 Completed Lipase Stat Lab 09/09/25 20:20 Completed Magnesium Stat Lab 09/09/25 20:20 Completed Urinalysis and Microscopic Stat Lab 09/09/25 20:17 Completed Urine Culture Stat Micro 09/09/25 20:17 Received Medical Decision Narrative: Initial impression of presenting illness: 35-year-old female presents emergency department complaints of abdominal pain that started 2 hours prior to arrival. She states that she then started to develop nausea vomiting, and diarrhea. She denies fevers. She reports she did take Pepto without relief of symptoms. Differential diagnosis includes but is not limited to: Gastritis, gastroenteritis, pancreatitis, gallbladder disease Patient arrives hemodynamically stable, afebrile, without respiratory distress with vital signs interpreted by myself. Initial physical exam reveals normoactive bowel sounds in all quadrants. Patient reports tenderness on palpation of all quadrants as well. Rest of exam is unremarkable. Initial diagnostic plan: Abdominal pain workup including CT of abdomen pelvis with IV contrast, normal saline bolus for hydration, Toradol for pain, Zofran for nausea Results from initial plan were reviewed and interpreted by myself, pertinent positives include: Laboratory studies were nonactionable. Patient's urinalysis was positive for 3+ bacteria however there was 10-20 epithelial cells present. There was also too numerous to count red blood cells as well as 5-10 white blood cells per high-power field however patient reports that she is currently on her period. CT of abdomen and pelvis with IV contrast shows distention of the gallbladder that is noninflamed. Common bile duct is newly mildly distended at 8 mm with trace intrahepatic biliary ductal distention. Interventions in the ED: Patient was given normal saline bolus for hydration as well as Toradol for pain and Zofran for nausea. Patient was made aware of the results and the findings, upon reevaluation patient has remained stable throughout stay, symptoms have improved. Upon reevaluation patient states she is feeling much better. Disposition: Reviewed findings today's workup with patient and discussed her CT results. Advised patient that we could attempt to admit her to this facility for further evaluation or have her follow-up with her GI provider outpatient since she is feeling better. Patient elects for outpatient follow-up. I advised her to consume a clear diet and slowly advance as tolerated. I also informed her that I will give her prescription for Zofran to help with her nausea. Instructed her to return immediately to the emergency department with worsening abdominal pain, inability to tolerate p.o., fevers patient was agreeable to plan of care. Patient made aware of findings and had a detailed discussion with symptomatic care and return precautions, patient voiced understanding. Critical Care Critical Care Time Critical Care Time: No
--- OUTSIDE RECORDS SUMMARY | 2025-09-09 20:16 | XMS_ITS | Encounter Summary ---
Author Organization [employer] ([place], [place], [place], [place], [place]) Address [address] [place] [address] Care Team Providers Care Wrestling Coach Name Role Phone Arsalan Powers MD Primary Care Provider [phone]- [phone] Reason for Visit * Reason Onset Date Comments Medication Refill 08/23/2025 Encounter Details Date Type Department Care Team (Late st Contact Info) Description 08/23/2025 Telephone [facility] [address] [facility] [address] [place] [address] Mabel Akins, dogman/woman Refill Social History Tobacco Use Types Packs/Day Years Used Date Smoking Tobacco: Former Cigarettes 0.5 3 0 09/23/2015 - 2018 Smokeless Tobacco: Never Comments:Caused GERD Alcohol Use Standard Drinks/Week Comments Not Currently 1 (1 standard drink = 0.6 oz pur [...] Date Alejandro rded Speak language other than Maltese at home Not on file 10/02/2023 Want help with school or training Not on file 10/02/2023 Substance Use Answer Date Recorded Used prescription meds for non-medical reasons N ot on file 10/02/2023 Used illegal drugs past 12 months Not on file 10/02/2023 Comments Unknown Sex and Gender Information Value Date Recorded Sex Assigned at Female 03/20/2022 9:08 PM CDT Legal Sex Female 9:08 PM CDT Gender Identity Female 03/20/2022 9:08 PM CDT Sexual Orientation Not on file documented as of this encounter Miscellaneous Notes * Telephone Encounter - Mabel Akins RN - 08/23/2025 10:59 AM EST Patient request refill on Omeprazole. Instructed in Dr Wolff plan to try Mylanta OTC first, then Omeprazole OTC and call office to discuss if still in need of RX for PPI. She voices understanding. Electronically signed by Mabel Akins RN - 08/23/2025 - 11:07 AM EST SFORMER BUILDER documented in this encounter Plan of Treatment Upcoming Encounters Date Type Department Care Team (Late st Contact Info) Description 05/04/2026 9:15 AM EDT Office Visit [facility] [address] [place] [address] Phuong Dvaid MD [address] [place] [address] documented as of this encounter Visit Diagnoses Not on filedocumented in this encounter Care Teams Wrestling Coach Relationship Specialty Start Date End Date Arsalan Powers MD [address] [place] [id number] PCP - General Family Medicine 08/07/22 documented as of this encounter
--- OUTSIDE RECORDS SUMMARY | 2025-09-09 20:16 | XMS_ITS | Encounter Summary ---
[facility] Address [address] [place] [address] Care Team Providers Care Cut Plug Packer Name Role Phone Provider, No Known Primary Care Provider Unavail able Encounter Details Date Type Department Care Team (Late st Contact Info) Description 12/11/2024 Medication Therapy Management [facility] [address] [id number] Yi Kiran MD [address] [place] [address] Type 2 diabetes mellitus in , third trimester Social History Tobacco Use Types Packs/Day Years Used Date Smoking Tobacco: Former Cigarettes Smokeless Tobacco: Never Alcohol Use Standard Drinks/Week Comments Not Currently 0 (1 standard drink = 0.6 oz pur e alcohol) [facility] Utilities Answer Date Recorded In the past 12 months has [employer], gas, oil, or water [employer] threatened to shut off services in your [...] and heating? Not hard at all 12/12/2024 [facility] - Occupational Stress Questionnaire Answer Date [...] things needed for daily living? No 12/12/2024 [place] Depression Scale Answer Date Recorded [place] Depression Scale Total 6 12/13/2024 The [...] GED or equivalent No 12/12/2024 Preferred Language Khmer 12/12/2024 PHQ-2 Answer Date Recorded Patient Health [...] trimester documented in this encounter Care Teams Cut Plug Packer Relationship Specialty Start Date End Date Provider, [place] [address] PCP - General 06/15/24 documented as of this encounter"
--- OUTSIDE RECORDS SUMMARY | 2025-09-09 20:16 | XMS_ITS | Referral Summary ---
Author Organization [employer] ([place], [place], [place], [place], [place]) Address [address] [place] [address] Care Team Providers Care Customer Service Sales Associate Name Role Phone Arsalan Powers MD Primary Care Provider [phone]- [phone] Encounters Date Type Department Care Team Description 08/23/2025 Telephone [facility] Services [address] [address] Mabel Akins, public health Refill from Last 3 Months Allergies Active Allergy Reactions Criticality Noted Date Comments Benzoyl Peroxid-Salicylic Acid 08/07 rash Benzoyl Peroxide Rash Low 10/18/2023 Medications ARIPiprazole (ABILIFY) 5 MG tablet Take 2 tablets (10 mg total) by mouth nightly. 2 Active venlafaxine (EFFEXOR-XR) 150 MG 24 hr capsule Take by mouth. 2 Active venlafaxine (EFFEXOR-XR) 75 MG 24 hr capsule Take 1 capsule (75 mg total) by mouth daily. 2 Active rizatriptan (MAXALT-PICTURE HANGER) 10 MG disintegrating tablet as needed. Active Dexcom G7 Sensor olesya USE 1 EVERY 10 DAYS 5 Active ARIPiprazole (ABILIFY) 10 MG tablet Take 1 tablet (10 mg total) by mouth nightly. 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 RHM 04/30/2023 Morbid obesity 08/07/2022 Type 2 diabetes mellitus wit h hyperosmolarity without coma, without long-term current use of insulin 08/07/2022 Bipolar 2 disorder 08/07/2022 Obstructive sleep apnea (adult) (pediatric) 07/24 Gastroesophageal reflux disease without esophagi tis 08/07/2022 PCOS (polycystic ovarian syndrome) 08/07/2022 Resolved Problems Problem Noted Date Diagnosed Date Resolved Date Dysphagia, unspecified type 08/07/2022 04/01/2023 Social History Tobacco Use Types Packs/Day Years Used Date Smoking Tobacco: Former Cigarettes 0.5 3 0 09/23/2015 - 2018 Smokeless Tobacco: Never Tobacco Cessation:Counseling Given: No Comments:Caused GERD Alcohol Use Standard Drinks/Week Comments [...] Date Alejandro rded Speak language other than Greenlandic at home Not on file 10/02/2023 Want [...] Sign Reading Time Taken Comments Blood Pressure 116/78 05/05/2025 8:37 AM EDT Pulse 88 05/05/2025 8:37 AM EDT Temperature 36.6 C (97.9 F) 05/07/2023 8:51 AM EDT Respiratory Rate 20 05/05/2025 8:37 AM EDT Oxygen Saturation 98% 05/05/2025 8:37 AM EDT Inhaled Oxygen Concentration - - Weight 84.2 kg (185 lb 9.6 oz) 05/05/2025 8:37 A M EDT Height 157.5 cm (5' 2 ) 05/05/2025 8:37 AM EDT Body Mass Index 33.95 05/05/2025 8:37 AM EDT Plan of Treatment Upcoming Encounters Date Type Department Care Team (Late st Contact Info) Description 05/04/2026 9:15 AM EDT Office Visit [facility] Services [address] [place] [address] Phuong David MD [address] [place] [address] Procedures Procedure Name Priority Date/Time Associated Diagnosis Comments HEMOGLOBIN A1C Routine 05/05/2025 10:00 AM EDT History of diabetes mellitus resolved following bariatric surgery S/P gastric sleeve procedure LIPID PANEL Routine 08/07/2023 11:12 AM EST Dysphagia, unspecified type Morbid obesity (HCC) Type 2 diabetes mellitus with hyperosmolarity without coma, without long-term current use of insulin (HCC) Bipolar 2 disorder (HCC) Obstructive sleep apnea (adult) (pediatric) Gastroesophageal reflux disease without esophagitis PCOS (polycystic ovarian syndrome) from Last 3 Months or Most Recently Relevant to Health Maintenance Results * (ABNORMAL) Hemoglobin A1c (05/05/2025 10:00 AM EDT) Hemoglobin A1C 5.9(H) 4.0 - 5.6 % 05/05/2025 2:38 PM EDT [facility] Comment: Hemoglobin A1C levels are related to mean glucose during the preceding 2-3 months. Less than 7% demonstrates glycemic control in diabetic patients. Hemoglobin AlC % Suggested Diagnosis > or = 6.5 Diabetic 5.7 - 6.4 Prediabetic <5.7 Non-diabetic eAVG Glucose 122.63 70 - 126 mg/dL 05/05/2025 2:38 PM EDT [facility] Blood Venipuncture / Unknown 05/05/2025 10:00 AM EDT 05/05/2025 10:00 AM EDT us Phuong David MD LAB BLOOD ORDERABLES Final Resu lt [facility] [address] [phone] * (ABNORMAL) Lipid panel (08/07/2023 11:12 AM EST) Triglycerides 210 0 - 249 mg/dL 08/07/2023 12:43 PM EST [facility] Cholesterol 144 0 - 199 mg/dL 08/07/2023 12:43 PM EST [facility] Comment: 200 to 239 mg/dL = Moderate (borderline) >239 mg/dL = High HDL Cholesterol 43 >=40 mg/dL 08/07/2023 12:43 PM EST [facility] Comment: >=60 mg/dL = Desirable <40 mg/dL = Increased Risk All other components are listed individually or are calculations VLDL Cholesterol 42(H) 5 - 40 mg/dL 08/07/2023 12:43 PM EST [facility] Cholesterol/HDL ratio 3.3(H) 0.0 - 3.2 08/07/2023 12:43 PM EST [facility] LDl/HDL Ratio 1 0 - 4 08/07/2023 12:43 PM EST [facility] RISK COMP 3 08/07/2023 12:43 PM EST [facility] LDL Cholesterol, Calculated 59 0 - 99 mg/dL 08/07/2023 12:43 PM EST [facility] Blood Venipuncture / Unknown 08/07/2023 11:12 AM EST 08/07/2023 11:12 AM EST us Yi Cruz PA-C LAB BLOOD ORDERABLES Fi nal Result [facility] [address] [place] [address], [facility] [phone] from Last 3 Months or Most Recently Relevant to Health Maintenance Insurance [facility] CHOICE PLUS Advance Directives For more information, please contact: [phone] * Full Code (Latest Code Status on File) Date Activated Date Inactivated Comments 04/30/2023 10:00 AM 05/01/2023 3:45 PM * Full Code Date Activated Date Inactivated Comments 04/30/2023 5:15 AM 04/30/2023 10:00 AM Care Teams Customer Service Sales Associate Relationship Specialty Start Date End Date Arsalan Powers MD [address] [place] [id number] PCP - General Family Medicine 08/07/22
--- OUTSIDE RECORDS SUMMARY | 2025-09-09 20:16 | XMS_ITS | Encounter Summary ---
Author Organization [facility] [place] [address] Care Team Providers Care Holiday Detector Operator Name Role Phone Mary Powers Primary Care Provider [phone] Encounter Details Date Type Department Care Team (Late st Contact Info) Description 07/16/2019 Lab Requisition [facility] 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 Acne vulgaris CHOLESTEROL TOTAL Routine 07/16/2019 3:3 1 PM EDT Other fpc (current) drug therapy Acne vulgaris HEPATIC FUNCTION PANEL Routine 10/24/201 9 3:31 PM EDT Other termite exterminator (current) drug therapy Acne vulgaris documented in [...] 3:31 PM EDT 07/16/2019 6:31 PM EDT [employer] [facility] CHEMISTRY ORDERABLES Fi nal Result [facility], [facility] [address] [facility] , [place] [address] * (ABNORMAL) TRIGLYCERIDES (07/16/2019 3:31 PM EDT) Triglyceride 425(H) <=150 mg/dL 07/16/2019 7:48 PM EDT [facility] Comment: < 150 Normal 150 - 199 Borderline High 200 - 499 High >= 500 Very High Blood VENOUS BLOOD / Unknown 07/16/2019 3:31 PM EDT 07/16/2019 6:31 PM EDT [employer] POLY AREA SUPERVISOR CHEMISTRY ORDERABLES Fi nal Result Performing Organization Address City/[facility]/ZIP Co de Phone Number [employer] [address] [facility] , [place] [address] * HUMAN CHORIONIC GONADOTROPIN QUANTITATIVE (07/16/2019 3:31 PM EDT) Hcg Quant <1 mIU/mL 07/16/2019 7:3 9 PM EDT [facility] [employer] Blood VENOUS BLOOD / Unknown 07/16/2019 3:31 PM EDT 07/16/2019 6:31 PM EDT Narrative [facility] [employer] - 07/16/2019 7:39 PM EDT < 5 [...] interfere with this immunoassay test. Adela Morton Jennings POLY AREA SUPERVISOR CHEMISTRY ORDERABLES Fi nal Result Performing Organization Address [facility] Co de Phone Number [employer] [facility] [address] [facility] , [place] [address] * CHOLESTEROL TOTAL (07/16/2019 3:31 PM EDT) Cholesterol 101 <=200 mg/dL 07/16/2019 7:39 PM EDT [employer] Comment: < 200 Desirable 200 - 239 Borderline High >= 240 High Blood VENOUS BLOOD / Unknown 07/16/2019 3:31 PM EDT 07/16/2019 6:31 PM EDT Adela Morton Jennings POLY AREA SUPERVISOR CHEMISTRY ORDERABLES Fi nal Result Performing Organization Address City/[facility] Co de Phone Number [employer] [facility] [address] [facility] , [place] [address] documented in this encounter Visit Diagnoses Diagnosis Other termite exterminator (current) drug therapy Acne vulgaris Other acne documented in this encounter Care Teams Holiday Detector Operator Relationship Specialty Start Date End Date Mary Powers [address] [facility] [address] [place] [address] PCP - General Family Medicine 06/23/18 documented as of this encounter
--- OUTSIDE RECORDS SUMMARY | 2025-09-09 20:16 | XMS_ITS | Encounter Summary ---
Author Organization [place] [address] Care Team Providers Care Pay Per Click Strategist Name Role Phone Mary Powers Primary Care Provider [phone] Encounter Details Date Type Department Care Team (Late st Contact Info) Description 02/05/2019 Lab Requisition [facility] LAB[facility]ATORY [facility] [place] [address] Adela Villalba, [facility] [address] [address] [place] [address] Other assisted (current) drug therapy; Acne vulgaris Social History [...] QUANTITATIVE Routine 02/05/2019 4:00 PM EDT Other assisted (current) drug therapy Acne vulgaris TRIGLYCERIDES Routine 02/05/2019 4:00 PM EDT Other regional intermodal truck driver (current) drug therapy Acne vulgaris CHOLESTEROL TOTAL Routine 02/05/2019 4:0 0 PM EDT Other assisted (current) drug therapy Acne vulgaris HEPATIC FUNCTION PANEL Routine 05/16/201 9 4:00 PM EDT Other regional intermodal truck driver (current) drug therapy Acne vulgaris documented in [...] 4:00 PM EDT 02/05/2019 7:03 PM EDT [employer] [facility] CHEMISTRY ORDERABLES Fi nal Result [facility], [facility] [address] [facility] , [place] [address] * (ABNORMAL) TRIGLYCERIDES (02/05/2019 4:00 PM EDT) Triglyceride 238(H) <=150 mg/dL 02/05/2019 10:03 PM EDT [facility] Comment: < 150 Normal 150 - 199 Borderline High 200 - 499 High >= 500 Very High Blood VENOUS BLOOD / Unknown 02/05/2019 4:00 PM EDT 02/05/2019 7:03 PM EDT [employer] BUSINESS TRANSFORMATION ANALYST CHEMISTRY ORDERABLES Fi nal Result Performing Organization Address City/[facility] Co de Phone Number [employer] [address] [facility] , [place] [address] * HUMAN CHORIONIC GONADOTROPIN QUANTITATIVE (02/05/2019 4:00 PM EDT) Hcg Quant <1 mIU/mL 02/05/2019 9:5 4 PM EDT [facility] [employer] Blood VENOUS BLOOD / Unknown 02/05/2019 4:00 PM EDT 02/05/2019 7:03 PM EDT Narrative [facility] [employer] - 02/05/2019 9:54 PM EDT < 5 [...] interfere with this immunoassay test. Adela Morton [place] BUSINESS TRANSFORMATION ANALYST CHEMISTRY ORDERABLES Fi nal Result Performing Organization Address [facility] Co de Phone Number [facility] [facility] [address] [facility] , [place] [address] * CHOLESTEROL TOTAL (02/05/2019 4:00 PM EDT) Cholesterol 114 <=200 mg/dL 02/05/2019 10:03 PM EDT [employer] Comment: < 200 Desirable 200 - 239 Borderline High >= 240 High Blood VENOUS BLOOD / Unknown 02/05/2019 4:00 PM EDT 02/05/2019 7:03 PM EDT Adela Morton [place] BUSINESS TRANSFORMATION ANALYST CHEMISTRY ORDERABLES Fi nal Result Performing Organization Address City/[facility] Co de Phone Number [facility]outir [facility] [address] [facility] , [place] [address] documented in this encounter Visit Diagnoses Diagnosis Other regional intermodal truck driver (current) drug therapy Acne vulgaris Other acne documented in this encounter Care Teams Pay Per Click Strategist Relationship Specialty Start Date End Date Mary Powers [address] [facility] [address] [place] [address] PCP - General Family Medicine 06/23/18 documented as of this encounter
--- OUTSIDE RECORDS SUMMARY | 2025-09-09 20:16 | XMS_ITS | Encounter Summary ---
Author Organization [place] [address] Care Team Providers Care Workers Compensation Claims Specialist Name Role Phone Mary Powers Primary Care Provider [phone] Encounter Details Date Type Department Care Team (Late st Contact Info) Description 06/16/2019 Lab Requisition [facility]G LABORATORY [facility] [place] [address] Adela Villalba, [facility] [address] [place] [address] Other halfway (current) drug therapy; Acne vulgaris Social History [...] QUANTITATIVE Routine 06/16/2019 4:00 PM EDT Other halfway (current) drug therapy Acne vulgaris TRIGLYCERIDES Routine 06/16/2019 4:00 PM EDT Other terminal worker (current) drug therapy Acne vulgaris CHOLESTEROL TOTAL Routine 06/16/2019 4:0 0 PM EDT Other halfway (current) drug therapy Acne vulgaris HEPATIC FUNCTION PANEL Routine 09/24/201 9 4:00 PM EDT Other terminal worker (current) drug therapy Acne vulgaris documented in this encounter Results * (ABNORMAL) TRIGLYCERIDES (06/16/2019 4:00 PM EDT) Pathologist [facility] Triglyceride 529(H) <=150 mg/dL 06/16/2019 8:18 PM EDT [facility] [employer] Comment: < 150 Normal 150 - 199 Borderline High 200 - 499 High >= 500 Very High Blood VENOUS BLOOD / Unknown 06/16/2019 4:00 PM EDT 06/16/2019 6:55 PM EDT [employer] [facility] CHEMISTRY ORDERABLES Fi nal Result Performing Organization Address [facility] Phone Number [facility] [employer] [address] , [place] [address] * HUMAN CHORIONIC GONADOTROPIN QUANTITATIVE (06/16/2019 4:00 PM EDT) [facility] Hcg Quant <1 mIU/mL 06/16/2019 8:3 6 PM EDT [facility] [employer] Blood VENOUS BLOOD / Unknown 06/16/2019 4:00 PM EDT 06/16/2019 6:55 PM EDT Narrative [facility] [employer] - 06/16/2019 8:36 PM EDT < 5 [...] sample can interfere with this immunoassay test. [employer] [facility] CHEMISTRY ORDERABLES Fi nal Result Performing Organization Address [facility] de Phone Number [facility] [employer] [address] [address] * CHOLESTEROL TOTAL (06/16/2019 4:00 PM EDT) Cholesterol 122 <=200 mg/dL 06/16/2019 8:13 PM EDT [facility] Comment: < 200 Desirable 200 - 239 Borderline High >= 240 High Blood VENOUS BLOOD / Unknown 06/16/2019 4:00 PM EDT 06/16/2019 6:55 PM EDT [employer] [facility] CHEMISTRY ORDERABLES Fi nal Result Performing Organization Address City/[facility] Co de Phone Number [facility], [facility] [address] [facility] , [place] [address] * HEPATIC FUNCTION PANEL (06/16/2019 [...] 4:00 PM EDT 06/16/2019 6:55 PM EDT [employer]MICAL [employer]AYER CHEMISTRY ORDERABLES Fi nal Result Performing Organization Address City/[facility] Co de Phone Number [facility], [facility] [address] [facility] , [place] [address] documented in this encounter Visit Diagnoses Diagnosis Other terminal worker (current) drug therapy Acne vulgaris Other acne documented in this encounter Care Teams Workers Compensation Claims Specialist Relationship Specialty Start Date End Date Mary Powers [address] [facility] [address] [place] [address] PCP - General Family Medicine 06/23/18 documented as of this encounter
--- OUTSIDE RECORDS SUMMARY | 2025-09-09 20:16 | XMS_ITS | Data Portability ---
Author Organization [facility] NOÉ Ayala VAIDEN CLOSED Address [address] [facility] [address] [place] [address] Care Team Providers Care Dining Service Inspector Name Role Phone ARSALAN MUELLER Primary Care Provider [phone] Assessment No assessment recorded. Plan of Treatment Reminders Order Date Submit Date Provider Last Modified By Organization Details Last Modified Time Details Appointments None recorded. Lab TSH, serum or plasma 2017 018 [facility], [address] [place] [address], [phone], 8 18:11:06 TSH, serum or plasma 2016 017 [facility], [address] [place] [address], [phone], 7 16:00:24 Referral None recorded. Procedures None recorded. Surgeries None recorded. Imaging US, neck, soft tissue - To be done after 1 year before next visit on June 20192017 018 [facility], [address] [place] [address], [phone], 9 16:39:04 US, neck, soft tissue - Follow-up ultrasoun d on June 2018 before next appointme nt in June 2018. 2016 017 [email or web address] [facility] Radiology [facility], [address] [place] [address], [phone], 7 14:20:20 Medication Orders Maxalt-ML T 10 mg disintegr ating tablet 2021 [address] [facility], [address], [address], 17:10:54 Patient TargetsNo targets recorded. Patient Instructions Encounter Date Encounter Id Patient Instructions Last Modified By Organization Details Last Modified Time 07/19/2017 [id number] influenza (flu) vaccine: care instructions AMANDEEP Not available 07/19/2017 18:20:50 Lab work today Follow-up ultrasound after 1 year before next appointment in 2018. wayoub Not available 07/19/2017 14:58:18 07/18/2018 [id number] goiter: care instructions wayoub Not available 07/18/2018 16:07:39 wayoub Not available 2017 16:05:08 Total time spent [id number] with patient is 15 minutes with > 50 % spent on counseling on results and management plan. wayoub Not available 07/18/2018 16:05:24 07/17/2019 [id number] learning about type 2 diabetes wayoub Not available 07/17/2019 15:46:19 type 2 diabetes: care instructions wayoub Not available 07/17/2019 15:46:19 goiter: care instructions wayoub Not available 07/17/2019 15:45:19 03/19/[id number] scan images and ultrasound report [...] uIU/m L 0.290- 5.500 normal Not Available [facility] [address] [place], [address], 07/19/2017 16:00:24 07/18/20 18 07/18/2018 TSH, serum or plasm a TSH 0.785 uIU/m L 0.290- 5.500 normal Not Available [facility] [address] [place] [address], [phone], 07/18/2018 18:11:06 07/15/20 17 07/15/2017 US, neck, soft tissu e [facility] [address] [place] [address], [place] [address] Patien t Name: MONTANA LOO ER Patien [...] Looney MD on 2016 4:55 PM [email or web address] [facility] Radiology [facility] [address] [place] [address], [phone], 07/16/2017 12:49:18 07/18/20 18 07/18/2018 US, neck, soft tissu e [facility] [address] [place] [address] [place] [address] Kane rubin Name: MONTANA rubin : 989 [...] 3:37 PM [facility] [address] [place] [address], [phone], 07/19/2018 10:36:34 07/17/20 19 07/17/2019 US, neck, soft tissu e [facility] [address] [place] [address] [place] [address] Patihardik t Name: MONTANA rubin : 989 [...] compar ed [facility]io [facility]. Interp reted By: Hawa Looney MD Electr onical ly Signed By: Hawa Looney MD on 2018 4:33 PM [facility] [address], [phone], 07/22/2019 19:43:48 03/28/20 22 03/28/2022 CT, sinus es, w/o contr ast [address] [address] Patien t Name: MONTANA DAMIR LOO ER Patien t : 989 Patien t [facility] er: SUNDAY DEVLIN KERON EXAM DATE: [...] tripathi MD on 03/28/20 22 8:19 AM [facility] [address], [phone], 03/30/2022 22:37:44 Result Notes Documentation Provider Name and Address Organization Details Recorded Time Ct, Sinuses, W/o Contrast : [address] [address] Patient Name: KAITY NORWOOD Patient : 1990 [...] By: Eduardo Miguel MD OLOME ARENAS MD [address] [place] [address], [phone], [facility] 03/28/2022 12:22:48 Problems Name Problem SNOMED Code Status Onset Date Resolution Date Notes Provider Name and Address Organization Details Recorded Time Lack of energy 116213067 Active 2014 From Automated Load;Provi aniket: Salvador Painter;Stat us: Active Not Available [facility] 6 10:53:43 Non-toxic multinodu lar goiter 03558374 Active 2014 From Automated Load;Provi aniket: Salvador Painter;Stat us: Active Not Available [facility] 6 10:53:43 Problem Notes None recorded. Medical Equipment None Reported. Allergies Allergen ID Allergen Name Allergen Category Reaction Reaction Severity Criticality Documentation Date Start Date Code Code System Note Provider Name and Address Organization Details Recorded Time 868795 benzoyl peroxide medicatio n rash Not available Not available 07/19/2017 1418 RxNorm Emy Mouser [facility] 7 14:37:05 439228 salicylic acid medicatio n Not available Not available Not available 03/19/2022 9525 RxNorm Radha Guerrero [facility] 2 15:43:01 Medications Name Sig Start [...] weight Body temperature Heart rate Oxygen saturation Systolic And Diastolic Provider Name and Address Organization Details Last Updated DateTime 2 319158. 98 g 97 [degF] 99 /min 99 % 133/84 mm[Hg] Radha Guerrero [facility] 2 15:45:58 Date Recorded Body height Body mass index (BMI) Body weight Heart rate Systolic And Diastolic Provider Name and Address Organization Details Last Updated DateTime 07/17/2019 157.48 cm 44.6 kg/m2 861417.5 4 g 98 /min 128/78 mm[Hg] [facility] 07/17/2019 15:28:05 Date Recorded Body height Body mass index (BMI) Body weight Heart rate Systolic And Diastolic Provider Name and Address Organization Details Last Updated DateTime 07/18/2018 157.48 cm 48.3 kg/m2 372705.3 9 g 103 /min 118/68 mm[Hg] [facility] 07/18/2018 15:37:15 Date Recorded Body height Body mass index (BMI) Body weight Heart rate Systolic And Diastolic Provider Name and Address Organization Details Last Updated DateTime 07/19/2017 157.48 cm 48.3 kg/m2 948168.3 9 g 118 /min 122/76 mm[Hg] [facility] 07/19/2017 14:36:39 Social History Question Answer Notes LastModified by Organizat ion Details LastModified Time Tobacco Smoking Status Former Smoker [facility] 07/19/2017 14:39:14 What Was The Date Of Your Most Recent Tobacco Screening? 07/18/2018 Information n ot available 11/10/2019 Sex: Unknown Functional Status None recorded. Mental Status None recorded. Family History Relationship Description Onset Age of this Age Resolved Age Notes LastModified by Organization Details LastModified Time Sister Disorder of thyroid gland Not available 03/19 15:43:38 Medical History Condition Response Anxiety Disorder Y Diabetes Y Depression Y Gynecological HistoryNo gynecological history recorded. Obstetrics History GPAL:G 0 P 0 0 0 0 Immunizations Vaccine Type Date Status Note Provider Nam e and Address Organization Details Recorded Time Influenza, split virus, quadrivalent, PF 07/19/2017 completed Not Available [facility] 0 02:50:37 Past Encounters Encounter ID Performer Location Encounter Start Date Encounter Closed Date Diagnosis/Indication Diagnosis SNOMED-CT Code Diagnosis ICD10 Code Diagnosis IMO Codes Diagnosis Note [id number] SALVADOR PAINTER MD [facility] [address] [place] [phone] 07/19/2017 14:16:36 07/19/2017 15:54:41 Administration of influenza vaccine 01711912 Z23 Flu vaccinatio n provided in the office today. Multinodular goiter 2375 34803 E04.2 Follow-up ultrasound on 07/15/2017 showed right [...] by a repeat ultrasound after 1 year. [id number] SALVADOR PAINTER MD [facility] [address] [place] [phone] 07/18/2018 14:35:59 07/21/2018 08:32:06 Non-toxic multinodular goiter 56820162 E04.2 28-year-ol d -Am erican female patient [...] with the above mentioned plan of care. [id number] SALVADOR PAINTER MD [facility] [address] [place] [address] 07/17/2019 14:49:16 07/17/2019 15:56:40 Non-toxic multinodular goiter 77754421 E04.2 29 year-old -Am erican female patient [...] Type 2 aster betes mellitus without complication 422887706 E11.9 Continue current metformin therapy Defer further management to patient primary care. 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 Bipolar disorder 5860773 4 F31.9 New diagnosis and medication s Health Concerns Section Related Observation LastModified by Organization Detai ls LastModified Time None Recorded Concern Status LastModified by Organization Details LastModified Time None Recorded Advance Directives Directive None Recorded Payers Insurance Date Sequence Insurance Name Policy Number Policy Ty Covered Member ID Ty Member ID Guarantor Name 03/29/2022 1 [place] PROGRAM [id number] Kaity Norwood [id number] Kaity Norwood 03/19/2022 1 [employer] SIGNATURE ADMINISTRATORS - GEHA - DOS ON OR BEFORE 09/22/2023 - GEHA (PPO) Kaity Norwood [id number] Kaity Norwood Notes Date Note Type Note Provider Name and Address Organization Details Recorded Time 07/18/2018 text/html 28-year-old -Greenlandic female patient with a past medical history [...] consistent with a benign nodule in 2015. Interval history: Recent diagnosis type 2 diabetes and is started on low-dose metformin therapy Had thyroid ultrasound done today She denies any choking , difficult to breathing or difficulty swallowing Denies any palpitations, shaking, excessive sweating or weight loss SALVADOR PAINTER MD [facility] [place], [address], [facility] 07/18/2018 16:08:44 07/17/2019 text/html 29-year-old -Greenlandic female patient with a past medical history [...] sweating or weight loss SALVADOR PAINTER MD [address] [place] [address], [phone], [facility] 07/17/2019 15:46:29 03/19/2022 text/html Kaity is a [...] and is taking metformin. BARTOLOME ARENAS MD [address] [place] [address], [phone], [facility] 03/19/2022 17:24:44 OBGyn Episode No OBEpisode recorded.
--- OUTSIDE RECORDS SUMMARY | 2025-09-09 20:16 | XMS_ITS | Clinical Summary ---
Author Organization [employer] ([place], [place], [place], [place], [place]) Address [address] [place] [address] Care Team Providers Care Candle Molder Name Role Phone Arsalan Powers MD Primary Care Provider [phone] Allergies Active Allergy Reactions Criticality Noted Date [...] total) by mouth daily. 2 Active rizatriptan (MAXALT-MARINE PLUMBER) 10 MG disintegrating tablet as needed. Active Dexcom G7 Sensor olesya USE 1 EVERY 10 DAYS 5 Active ARIPiprazole (ABILIFY) 10 MG tablet Take 1 tablet (10 mg total) by mouth nightly. Active Tri-Lo-Lorenza 0.18/0.215/0.25 mg-0.025 mg per tablet 5 Active Active Problems Problem Noted Date [...] Resolved Date Dysphagia, unspecified type 08/07/2022 04/01/2023 Encounters Date Type Department Care Team Description 08/23/2025 Telephone [facility] [address] [place] [address] Mabel Akins, mmd unit teacher Refill from Last 3 Months Family History Medical History Relation Name Comments Alcohol abuse Father Arnie Urbano Recovering Diabetes Father Arnie Urbano Diabetes Maternal Aunt Muriel rubio Diabetes Maternal Grandmother Mandy Grissom COPD Mother Michelle Murphy Diabetes Paternal Aunt Rosina Urbano Diabetes Paternal Grandmother Stacikike Urbano Relation Name Status Comments Father Arnie Urbano Maternal Aunt Muriel rubio Maternal Grandmother Mandy Grissom Mother Michelle Murphy Paternal Aunt Rosina Urbano Paternal Grandmother Angélica Urbano Social History Tobacco Use Types Packs/Day Years [...] Date Alejandro rded Speak language other than Lao at home Not on file 10/02/2023 Want [...] Description 05/04/2026 9:15 AM EDT Office Visit [facility] [address] [address] Phuong David MD [address] [place] [id number] Health Maintenance Due Date Last Done Comments Diabetic Kidney Health Evalu ation (KED) 1989 Diabetic Eye Exam 1999 HIV Screening 2004 Hepatitis C Screening 2007 DTAP/TDAP/TD VACCINES (1 - Tdap) 2008 Pap Smear 2010 COVID-19 VACCINE (2024-2 6 season) 2025 08/07/2021, 12/28/2020, 11/30/2020 Influenza Vaccine (#1) 2025 Hemoglobin A1C 11/05/2025 05/05/2025, 04/23, 04/29/2024, Additional history exists Tobacco Cessation Counseling and Screening (12+) 05/05/2026 05/05/2025 Lipid Panel 08/07/2026 08/07/2023, 12/03/2022 Pneumococcal Vaccine: 0-49 Years Completed 04/18/20 22 [...] - 5.6 % 05/05/2025 2:38 PM EDT [facility] Comment: Hemoglobin A1C levels are related to mean glucose during the preceding 2-3 months. Less than 7% demonstrates glycemic control in diabetic patients. Hemoglobin AlC % Suggested Diagnosis > or = 6.5 Diabetic 5.7 - 6.4 Prediabetic <5.7 Non-diabetic eAVG Glucose 122.63 70 - 126 mg/dL 05/05/2025 2:38 PM EDT [facility] Blood Venipuncture / Unknown 05/05/2025 10:00 AM EDT 05/05/2025 10:00 AM EDT us Phuong David MD LAB BLOOD ORDERABLES Final Resu lt [facility] [address] [place], [place] [address] [phone] * (ABNORMAL) Lipid panel (08/07/2023 11:12 AM EST) Triglycerides 210 0 - 249 mg/dL 08/07/2023 12:43 PM [facility] Cholesterol 144 0 - 199 mg/dL 08/07/2023 12:43 PM [facility] Comment: 200 to 239 mg/dL = Moderate (borderline) >239 mg/dL = High HDL Cholesterol 43 >=40 mg/dL 08/07/2023 12:43 PM [facility] Comment: >=60 mg/dL = Desirable <40 mg/dL = Increased Risk All other components are listed individually or are calculations VLDL Cholesterol 42(H) 5 - 40 mg/dL 08/07/2023 12:43 PM [facility] Cholesterol/HDL ratio 3.3(H) 0.0 - 3.2 08/07/2023 12:43 PM [facility] LDl/HDL Ratio 1 0 - 4 08/07/2023 12:43 PM [facility] RISK COMP 3 08/07/2023 12:43 PM [facility] LDL Cholesterol, Calculated 59 0 - 99 mg/dL 08/07/2023 12:43 PM [facility] Blood Venipuncture / Unknown 08/07/2023 11:12 AM EST 08/07/2023 11:12 AM EST Yi Cruz PA-C LAB BLOOD ORDERABLES Fi nal Result [facility] [address] [id number], [facility] [phone] from Last 3 Months or Most Recently Relevant to Health Maintenance Insurance [facility] CHOICE PLUS Advance Directives For more information, please contact: [phone] * Full Code (Latest Code Status on File) Date Activated Date Inactivated Comments 04/30/2023 10:00 AM 05/01/2023 3:45 PM * Full Code Date Activated Date Inactivated Comments 04/30/2023 5:15 AM 04/30/2023 10:00 AM Care Teams Candle Molder Relationship Specialty Start Date End Date Arsalan Powers MD [address] [place] [address] PCP - General Family Medicine 08/07/22
--- OUTSIDE RECORDS SUMMARY | 2025-09-09 20:16 | XMS_ITS | Clinical Summary ---
Author Organization [facility] Address [address] [place] [address] Phone Care Team Providers Care Medical Imaging Technician Name Role Phone Mary Powers Primary Care Provider [phone] Social History Tobacco Use Types Packs/Day Years [...] - 19+ 3-dose series) 2008 COVID-19 Vaccine (2024-2 6 season) 2025 Influenza Vaccine (#1) 2025 Meningococcal B Vaccine Aged Out No l onger eligible based on patient's age to complete this topic Pneumococcal Vaccine 0-49 Aged Out No longer eligible based on patient's age to complete this topic Care Teams Medical Imaging Technician Relationship Specialty Start Date End Date Mary Powers [address] [facility] [address] [place] [address] PCP - General Family Medicine 06/23/18
--- OUTSIDE RECORDS SUMMARY | 2025-09-09 20:16 | XMS_ITS | Encounter Summary ---
Author Organization [facility] [place] [address] Care Team Providers Care Policy Change Clerk Name Role Phone Mary Powers Primary Care Provider [phone] Encounter Details Date Type Department Care Team (Late st Contact Info) Description 05/13/2019 Lab Requisition [facility] [place] [address] Adela Villalba, [facility] [address] [facility] [place] [address] Acne vulgaris; Other parts counterman (current) drug therapy Social History Tobacco Use [...] 05/13/2019 3:30 PM EDT Acne vulgaris Other parts counterman (current) drug therapy TRIGLYCERIDES Routine 05/13/2019 3:30 PM EDT Acne vulgaris Other parts counterman (current) drug therapy CHOLESTEROL TOTAL Routine 05/13/2019 3:3 0 PM EDT Acne vulgaris Other halfway (current) drug therapy HEPATIC FUNCTION PANEL Routine 08/21/201 9 3:30 PM EDT Acne vulgaris Other halfway (current) drug therapy documented in [...] 3:30 PM EDT 05/13/2019 6:49 PM EDT [email or web address] [facility] CHEMISTRY ORDERABLES Fi nal Result [facility], [facility] 1 [facility] , [place] [address] * (ABNORMAL) TRIGLYCERIDES (05/13/2019 3:30 PM EDT) Triglyceride 387(H) <=150 mg/dL 05/13/2019 8:07 PM EDT [facility] Comment: < 150 Normal 150 - 199 Borderline High 200 - 499 High >= 500 Very High Blood VENOUS BLOOD / Unknown 05/13/2019 3:30 PM EDT 05/13/2019 6:49 PM EDT [email or web address] House EMD SPECIAL EDUCATION TEACHER CHEMISTRY ORDERABLES Fi nal Result Performing Organization Address City/[facility] Co de Phone Number [employer] [facility] [address] [facility] , [place] [address] * HUMAN CHORIONIC GONADOTROPIN QUANTITATIVE (05/13/2019 3:30 PM EDT) Hcg Quant <1 mIU/mL 05/13/2019 8:1 1 PM EDT [facility] [employer] [facility] Blood VENOUS BLOOD / Unknown 05/13/2019 3:30 PM EDT 05/13/2019 6:49 PM EDT Narrative [facility] [employer] - 05/13/2019 8:11 PM EDT < 5 [...] interfere with this immunoassay test. Adela Villalba EMD SPECIAL EDUCATION TEACHER CHEMISTRY ORDERABLES Fi nal Result Performing Organization Address [facility] Co de Phone Number [facility] [employer] [facility] [address] [facility] , [place] [address] * CHOLESTEROL TOTAL (05/13/2019 3:30 PM EDT) Cholesterol 118 <=200 mg/dL 05/13/2019 8:07 PM EDT [employer] [facility] Comment: < 200 Desirable 200 - 239 Borderline High >= 240 High Blood VENOUS BLOOD / Unknown 05/13/2019 3:30 PM EDT 05/13/2019 6:49 PM EDT Adela Morton Bighorn EMD SPECIAL EDUCATION TEACHER CHEMISTRY ORDERABLES Fi nal Result Performing Organization Address [facility] Co de Phone Number [employer] [facility] [address] [facility] , [place] [address] [place] [address] documented in this encounter Visit Diagnoses Diagnosis Acne vulgaris Other acne Other parts counterman (current) drug therapy documented in this encounter Care Teams Policy Change Clerk Relationship Specialty Start Date End Date Mary Powers [address] [facility] [address] [place] [address] PCP - General Family Medicine 06/23/18 documented as of this encounter
--- OUTSIDE RECORDS SUMMARY | 2025-09-09 20:16 | XMS_ITS | Encounter Summary ---
Author Organization [facility] [place] [address] Care Team Providers Care Public Services Assistant Name Role Phone Mary Powers Primary Care Provider [phone] Encounter Details Date Type Department Care Team (Late st Contact Info) Description 04/09/2019 Lab Requisition [facility] [place] [address] Adela Villalba, [facility] [address] [facility] [place] [address] Acne vulgaris; Other terminal operator (current) drug therapy Social History Tobacco Use [...] 04/09/2019 4:00 PM EDT Acne vulgaris Other terminal operator (current) drug therapy TRIGLYCERIDES Routine 04/09/2019 4:00 PM EDT Acne vulgaris Other terminal operator (current) drug therapy CHOLESTEROL TOTAL Routine 04/09/2019 4:0 0 PM EDT Acne vulgaris Other fpc (current) drug therapy HEPATIC FUNCTION PANEL Routine 07/18/201 9 4:00 PM EDT Acne vulgaris Other fpc (current) drug therapy documented in this encounter [...] 4:00 PM EDT 04/09/2019 7:28 PM EDT [employer] [facility] CHEMISTRY ORDERABLES Fi nal Result [facility], [facility] 1 [facility] , [place] [address] * (ABNORMAL) TRIGLYCERIDES (04/09/2019 4:00 PM EDT) Triglyceride 329(H) <=150 mg/dL 04/09/2019 9:07 PM EDT [facility] Comment: < 150 Normal 150 - 199 Borderline High 200 - 499 High >= 500 Very High Blood VENOUS BLOOD / Unknown 04/09/2019 4:00 PM EDT 04/09/2019 7:28 PM EDT [employer] [facility] THERMODYNAMICS ENGINEER CHEMISTRY ORDERABLES Fi nal Result Performing Organization Address City/[facility] Co de Phone Number [employer] [address] [facility] , [place] [address] * HUMAN CHORIONIC GONADOTROPIN QUANTITATIVE (04/09/2019 4:00 PM EDT) Hcg Quant <1 mIU/mL 04/09/2019 9:1 0 PM EDT [facility] Blood VENOUS BLOOD / Unknown 04/09/2019 4:00 PM EDT 04/09/2019 7:28 PM EDT Narrative [facility] [employer] - 04/09/2019 9:10 PM EDT < 5 [...] interfere with this immunoassay test. Adela Morton Pharr THERMODYNAMICS ENGINEER CHEMISTRY ORDERABLES Fi nal Result Performing Organization Address [facility] Co de Phone Number [facility] moneymeets [facility] 1 [facility] , [place] [address] * CHOLESTEROL TOTAL (04/09/2019 4:00 PM EDT) Cholesterol 107 <=200 mg/dL 04/09/2019 9:07 PM EDT [employer] Comment: < 200 Desirable 200 - 239 Borderline High >= 240 High Blood VENOUS BLOOD / Unknown 04/09/2019 4:00 PM EDT 04/09/2019 7:28 PM EDT Adela Morton Pharr THERMODYNAMICS ENGINEER CHEMISTRY ORDERABLES Fi nal Result Performing Organization Address [facility] Co de Phone Number [employer] / [employer] [facility] 1 [facility] , [place] [address] documented in this encounter Visit Diagnoses Diagnosis Acne vulgaris Other acne Other terminal operator (current) drug therapy documented in this encounter Care Teams Public Services Assistant Relationship Specialty Start Date End Date Mary Powers [address] [facility] [address] [place] [address] PCP - General Family Medicine 06/23/18 documented as of this encounter
--- OUTSIDE RECORDS SUMMARY | 2025-09-09 20:16 | XMS_ITS | Encounter Summary ---
Author Organization [facility] [place] [place] [address] Care Team Providers Care Side Laster Tack Name Role Phone Mary Powers Primary Care Provider [phone] Encounter Details Date Type Department Care Team (Late st Contact Info) Description 03/09/2019 Lab Requisition [facility] [place] [address] Adela Villalba, 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 CHEMISTRY ORDERABLES Fi nal Result [facility], [facility] [address] [facility] , [place] [address] * (ABNORMAL) TRIGLYCERIDES (03/09/2019 3:39 PM EDT) Triglyceride 355(H) <=150 mg/dL 03/09/2019 8:29 PM EDT [facility] Comment: < 150 Normal 150 - 199 Borderline High 200 - 499 High >= 500 Very High Blood VENOUS BLOOD / Unknown 03/09/2019 3:39 PM EDT 03/09/2019 6:39 PM EDT [employer] BUSINESS IMPROVEMENT MANAGER CHEMISTRY ORDERABLES Fi nal Result Performing Organization Address City/[facility] Co de Phone Number [employer] [address] [facility] , [place] [address] * HUMAN CHORIONIC GONADOTROPIN QUANTITATIVE (03/09/2019 3:39 PM EDT) Hcg Quant <1 mIU/mL 03/09/2019 8:1 1 PM EDT [facility] [email or web address] [facility] Blood VENOUS BLOOD / Unknown 03/09/2019 3:39 PM EDT 03/09/2019 6:39 PM EDT Narrative [facility] [employer] - 03/09/2019 8:11 PM EDT < 5 [...] interfere with this immunoassay test. Adela Villalba BUSINESS IMPROVEMENT MANAGER CHEMISTRY ORDERABLES Fi nal Result Performing Organization Address [facility] Co de Phone Number [facility] [email or web address] [facility] 1 [facility] , [place] [address] * CHOLESTEROL TOTAL (03/09/2019 3:39 PM EDT) Cholesterol 146 <=200 mg/dL 03/09/2019 8:29 PM EDT [employer] Comment: < 200 Desirable 200 - 239 Borderline High >= 240 High Blood VENOUS BLOOD / Unknown 03/09/2019 3:39 PM EDT 03/09/2019 6:39 PM EDT Adela Morton [place] BUSINESS IMPROVEMENT MANAGER CHEMISTRY ORDERABLES Fi nal Result Performing Organization Address [facility] Co de Phone Number [employer] [facility] 1 [facility] , [place] [address] documented in this encounter Visit Diagnoses Diagnosis Acne vulgaris Other acne Other dedicated intermodal truck driver (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
--- OUTSIDE RECORDS SUMMARY | 2025-09-09 20:16 | XMS_ITS | Encounter Summary ---
Author Organization [facility] [address] Care Team Providers Care Engineering Administrator Name Role Phone Mary Powers Primary Care Provider [phone] Encounter Details Date Type Department Care Team (Late st Contact Info) Description 01/05/2019 Lab Requisition [facility] 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 CHOLESTEROL TOTAL Routine 01/05/2019 3:1 8 PM EDT Acne vulgaris Other mcfp (current) drug therapy HEPATIC FUNCTION PANEL Routine 04/15/201 9 3:18 PM EDT Acne vulgaris Other mcfp (current) drug therapy documented in this encounter [...] 3:18 PM EDT 01/05/2019 7:18 PM EDT [employer] [facility] CHEMISTRY ORDERABLES Fi nal Result [facility], [facility] 1 [facility] , [place] [address] * (ABNORMAL) TRIGLYCERIDES (01/05/2019 3:18 PM EDT) Triglyceride 159(H) <=150 mg/dL 01/05/2019 9:02 PM EDT [facility] Comment: < 150 Normal 150 - 199 Borderline High 200 - 499 High >= 500 Very High Blood VENOUS BLOOD / Unknown 01/05/2019 3:18 PM EDT 01/05/2019 7:18 PM EDT [employer] HEALTH INFORMATION ADMINISTRATOR CHEMISTRY ORDERABLES Fi nal Result Performing Organization Address City/[facility] Co de Phone Number [employer] [address] [facility] , [place] [address] * HUMAN CHORIONIC GONADOTROPIN QUANTITATIVE (01/05/2019 3:18 PM EDT) Hcg Quant <1 mIU/mL 01/05/2019 9:0 0 PM EDT [employer] Blood VENOUS BLOOD / Unknown 01/05/2019 3:18 PM EDT 01/05/2019 7:18 PM EDT Narrative [employer] - 01/05/2019 9:00 PM EDT < 5 [...] interfere with this immunoassay test. Adela Morton Lipan HEALTH INFORMATION ADMINISTRATOR CHEMISTRY ORDERABLES Fi nal Result Performing Organization Address [facility] Co de Phone Number [employer] [address] [facility] , [place] [address] * CHOLESTEROL TOTAL (01/05/2019 3:18 PM EDT) Cholesterol 107 <=200 mg/dL 01/05/2019 9:02 PM EDT [employer] Comment: < 200 Desirable 200 - 239 Borderline High >= 240 High Blood VENOUS BLOOD / Unknown 01/05/2019 3:18 PM EDT 01/05/2019 7:18 PM EDT Adela Morton Lipan HEALTH INFORMATION ADMINISTRATOR CHEMISTRY ORDERABLES Fi nal Result Performing Organization Address City/[facility] Co de Phone Number [employer] [address] [facility] , [place] [address] documented in this encounter Visit Diagnoses Diagnosis Acne vulgaris Other acne 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
--- OUTSIDE RECORDS SUMMARY | 2025-09-09 20:16 | XMS_ITS | Clinical Summary ---
[facility] Organization [facility] Address [address] [place] [address] Care Team Providers Care Hotel Or Motel Cleaning Supervisor Name Role Phone Provider, No Known Primary Care Provider Unavail able Allergies Active Allergy Reactions Criticality Noted Date Comments Aspirin Rash Low 07/06/2024 SALICYLIC ACID Benzoyl Peroxide Rash Low 10/18/2023 Medications ARIPiprazole (ABILIFY) 10 MG tablet Take 1 tablet by mouth every night at bedtime. 06/14/20 24 Active rizatriptan DATA INPUT CLERK (MAXALT-DATA INPUT CLERK) [address] 1 tablet [...] mouth Daily. Active Insulin Pen Needle (Pen [place]) 31G X 5 MM miscIndications:Ty pe 2 [...] 2 diabetes mellitus in , [facility] 07/09/2024 Assessment & Plan (11/02/2024 8:19 AM [...] drink = 0.6 oz pur e alcohol) [facility] Utilities Answer Date Recorded In the [...] and heating? Not hard at all 12/12/2024 [employer] of Occupat ional Health - Occupational Stress [...] things needed for daily living? No 12/12/2024 [place] Depression Scale Answer Date Recorded [place] Depression Scale Total 0 12/24/2024 The thought [...] GED or equivalent No 12/12/2024 Preferred Language Nepalese 12/12/2024 PHQ-2 Answer Date Recorded Patient Health [...] 3- dose series) 2008 PAP SMEAR 2010 ANNUAL PHYSICAL 06/15/2024 HEMOGLOBIN A1C 10/30/2024 04/29/2024, 08/0 03/2024, 06/05/2023 INFLUENZA VACCINE 04/23/2025 08/07/2022, , 07/19/2017 TDAP/TD VACCINES (2 - Td or Tdap) 11/16/2034 025 Pneumococcal Vaccine 0-49 Completed 04/18/2022 HEPATITIS C SCREENING Completed 06/10/2024 Procedures Procedure Name Priority Date/Time Associated Diagnosis Comments HEPATITIS C ANTIBODY Routine 06/10/2024 from Last 3 Months or Most Recently Relevant to Health Maintenance Results * Hepatitis C Antibody (06/10/2024) External Hepatitis C Ab non-reacti ve Blood Historical Provider LAB BLOOD ORDERABLES Joan l Result from Last 3 Months or Most Recently Relevant to Health Maintenance Insurance [employer] [id number] Advance Directives Documents on File Type Date Recorded 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
--- OUTSIDE RECORDS SUMMARY | 2025-09-09 20:16 | XMS_ITS | Encounter Summary ---
[facility] Address [address] [place] [address] Care Team Providers Care Sales Operations Specialist Name Role Phone Provider, No Known Primary Care Provider Unavail able Encounter Details Date Type Department Care Team (Late st Contact Info) Description 12/11/2024 Medication Therapy Management [facility] [address] [id number] Yi Kiran MD [address] [place] [address] Social History Tobacco Use Types Packs/Day Years Used Date Smoking Tobacco: Former Cigarettes Smokeless Tobacco: Never Alcohol Use Standard Drinks/Week Comments Not Currently 0 (1 standard drink = 0.6 oz pur e alcohol) [facility] Utilities Answer Date Recorded In the past 12 months has [employer] oil, or water LEAFER threatened to shut off services in your [...] and heating? Not hard at all 12/12/2024 [facility] - Occupational Stress Questionnaire Answer [...] things needed for daily living? No 12/12/2024 [place] Depression Scale Answer Date Recorded [place] Depression Scale Total 6 12/13/2024 The thought [...] GED or equivalent No 12/12/2024 Preferred Language Portuguese 12/12/2024 PHQ-2 Answer Date Recorded Patient Health [...] on filedocumented in this encounter Care Teams Sales Operations Specialist Relationship Specialty Start Date End Date Provider, [place] [address] PCP - General 06/15/24 documented as of this encounter
--- NOTE | 2025-09-09 20:24 | CT_ITS ---
PROCEDURE INFORMATION: Exam: CT Abdomen And Pelvis With Contrast Exam date and time: 09/09/2025 9:00 PM Age: 35 years old Clinical indication: Vomiting; Abdominal pain; Additional info: Pain/v/d TECHNIQUE: Imaging protocol: Computed tomography of the abdomen and pelvis with contrast. Radiation optimization: All CT scans at this facility use at least one of these dose optimization techniques: automated exposure control; mA and/or kV adjustment per patient size (includes targeted exams where dose is matched to clinical indication); or iterative reconstruction. Contrast material: ISOVUE; Contrast volume: 75 ml; Contrast route: IV; COMPARISON: CT ABDOMEN PELVIS W CON 04/20/2025 11:44 PM FINDINGS: Lungs: Clear lung bases. Liver: Hepatomegaly at 21 cm craniocaudal dimension. Gallbladder and biliary ducts: The gallbladder is distended but does not appear inflamed. The common bile duct is newly mildly distended to 8 mm diameter with trace intrahepatic biliary ductal distension. Pancreas: Normal. No ductal dilation. Spleen: 15 cm splenic long axis indicates splenomegaly. Adrenal glands: Normal. No mass. Kidneys and ureters: Nonobstructive left sided kidney stone measures 2 mm. Stomach and bowel: Prior sleeve gastrectomy noted. Appendix: Normal appendix. Intraperitoneal space: Unremarkable. No free air. No significant fluid collection. Vasculature: Unremarkable. No abdominal aortic aneurysm. Lymph nodes: Unremarkable. No enlarged lymph nodes. Urinary bladder: Unremarkable as visualized. Reproductive: Menstrual cup located in the vagina. Bones/joints: Unremarkable. No acute fracture. Soft tissues: Unremarkable. IMPRESSION: 1. The gallbladder is distended but does not appear inflamed. The common bile duct is newly mildly distended to 8 mm diameter with trace intrahepatic biliary ductal distension. If there is clinical or laboratory evidence of biliary obstructive process, ERCP or MRCP could further define. 2. Normal appendix. 3. Nonspecific hepatosplenomegaly.
[2025-09-09] MEDS: 0.9 % SODIUM CHLORIDE 1000ML 1,000 ML 999 ML IV (20:35)
[2025-09-09] MEDS: KETOROLAC 15MG/ML VIAL 15 MG IV (20:35)
[2025-09-09] MEDS: ONDANSETRON 4MG/2ML VIAL 4 MG IV (20:35)
[2025-09-09 20:42] LABS: Alanine Aminotransferase 60 U/L (12-78); Albumin Level 4.6 g/dl (3.5-5.0); Albumin/Globulin Ratio 1.4 (1.1-1.8); Alkaline Phosphatase 84 U/L (38-126); Anion Gap 11.7 mEq/L (5-15); Aspartate Amino Transferase 81 U/L (14-36); Bilirubin,Total 0.6 mg/dl (0.2-1.3); Blood Urea Nitrogen 12 mg/dl (7-17); Calcium 9.0 mg/dl (8.4-10.2); Carbon Dioxide 27 mmol/L (22.0-30.0); Chloride 104 mmol/L (98-107); Creatinine Clearance Estimated 159 mL/min (50-200); Creatinine,Serum 0.70 mg/dl (0.52-1.04); Estimated Glomerular Filt Rate 95 ml/min (>60); GFR (African American) 115 ML/MIN (>60); Globulin 3.4 g/dL (1.3-3.2); Glucose 144 mg/dl (74-100); Lipase 226 U/L (23-300); Magnesium 2.1 mg/dl (1.6-2.3); Potassium 3.7 mmoL/L (3.5-5.1); Sodium 139 mmol/L (136-145); Total Protein,Serum 8.0 g/dl (6.3-8.2)
[2025-09-09 20:46] LABS: HCG Qualitative, Serum Negative (Negative)
[2025-09-09 20:53] LABS: Hematocrit 40.7 % (37.0-47.0); Hemoglobin 13.0 g/dL (12.2-16.2); Immature Granulocytes % 0.4 %; Mean Corpuscular HGB Conc 31.9 g/dL (31.8-35.4); Mean Corpuscular Hemoglobin 25.1 pg (27.0-31.2); Mean Corpuscular Volume 78.7 fl (81-99); Nucleated Red Blood Cells % 0 %; Platelet Count 292 K/mm3 (142-424); Red Blood Count 5.17 M/mm3 (4.20-5.40); Red Cell Distribution Width-SD 39.1 fL; White Blood Count 10.8 K/mm3 (4.8-10.8)
[2025-09-09 21:02] LABS: Microscopic, Urine URINE MICROSCOPIC (MICROSCOPIC)
[2025-09-09] MEDS: SODIUM CHLORIDE 0.9% 10ML SYR (RAD ONLY) 10 ML IV (21:03)
[2025-09-09] MEDS: IOPAMIDOL-370 (76%);100ML BOTTLE 75 ML IV (21:03)
[2025-09-09 21:04] LABS: Color,Urine YELLOW (Yellow); Glucose,Urine (UA) Negative (Negative); Ketones,Urine Negative (Negative); Leukocyte Esterase,Urine Negative (Negative); PH,Urine 6.0 (5.0-8.5); Protein,Urine Negative (Negative); Specific Gravity, Urine >= 1.030 (1.005-1.030); Urobilinogen,Urine 2.0 EU/dl (0.2)
[2025-09-09 21:10] LABS: Bilirubin,Urine Negative (Negative)
[2025-09-09 21:33] LABS: Bacteria,Urine 3+ /lpf; Mucus,Urine 3+ /lpf; RBC,Urine TNTC #/hpf (0-3)
--- NOTE | 2025-09-12 06:52 | PC.NURSE ---
Prelim Urine Cx Gram Negative Rods. No treatment rec'd until final CX results. Pt has zero urinary symptoms.
--- NOTE | 2025-09-13 09:42 | PC.NURSE ---
Urine culture reviewed by Dr. Loo. Macrobid BID x 5 [address] to [facility] pharmacy. Attempted to call patient, no answer, left message for patient to call back.
--- NOTE | 2025-09-13 09:48 | PC.NURSE ---
Patient returned call, went over antibiotics with her, she verbalized understanding. Advised her to follow up with PCP at end of antibiotics to have urine rechecked.
== END 2025-09-09 22:21 | disposition home or self-care (01) ==
PROVIDERS: Nurse Practitioner Family; Emergency Provider Student in an Organized Health Care Education/Training Program; PCP Nurse Practitioner
DX: R10.84 Generalized abdominal pain (principal); N39.0 Urinary tract infection, site not specified; R11.2 Nausea with vomiting, unspecified; K82.9 Disease of gallbladder, unspecified; Z98.84 Bariatric surgery status; B96.20 Unspecified Escherichia coli [E. coli] as the cause of diseases classified elsewhere
CPT/HCPCS: 74177; 80053; 81001; 83690; 83735; 84703; 85025; 87086; 87088; 87186; 96361; 96374; 96375; 99285; J1885; J2405; J7030; Q9967